=== PATIENT | female | born 1980 | race African-American/Black ===

== ENCOUNTER 2016-06-08 08:31 | Observation (INO) | payer OTHER ==
[~2016-06-08] VITALS: Ht 160 cm; Wt 101.0 kg
[~2016-06-08 08:31] MED LIST: ALBU8I INH; IBUP-232 PO; NORV10TA PO; PROM25SU8 PO
[2016-06-08 08:32] VITALS: BP 145/86; PULSE 102; RESP 20; TEMP 98.2; O2SAT 97
[2016-06-08] MEDS ORDERED: VENTAER INH (09:04)
[2016-06-08] MEDS ORDERED: AMLO10 PO (09:04)
[2016-06-08] MEDS ORDERED: SODIUM CHLORIDE 0.9% FLUSH 5 ML FLUSH IVF PRN ×2 (09:15→12:00)
--- NOTE | 2016-06-08 09:16 | PD ---
HPI Chief Complaint: Chest Pain Time Seen by Provider: 09:05 Travel History International Travel<30 days: No Contact w/Intl Traveler<30days: No Traveled to known affect area: No History of Present Illness HPI 36-year-old female with history of hypertension, high cholesterol, asthma, presents to the ER today because she states that she has been having headaches for several days and has been having left jaw discomfort, left shoulder discomfort, and chest discomfort. She states it feels like a pressure in the chest is a 7 out of 10 on the left side. She has tried to use her asthma pumps but did not give any improvement. She states it feels different than her asthma. She denies any shortness of breath currently, nausea, or other symptoms. Modifying Factors: None Associated Signs & Symptoms: Left jaw discomfort, left shoulder discomfort, chest discomfort, headaches Risk Factors: None PFSH Past Medical History Asthma: Yes Blood Disorders: No Anxiety: Yes Depression: Yes Cancer: No Cardiovascular Problems: No High Cholesterol: Yes Chemotherapy: No Diabetes: No Diminished Hearing: No Endocrine: No Gastrointestinal Disorders: Yes (CHOLECYSTITIS) GERD: Yes Genitourinary: No Hepatitis: No Hiatal Hernia: No Hypertension: Yes Immune Disorder: No Implanted Vascular Access Dvce: No Kidney Stones: Yes Musculoskeletal: No Neurologic: No Psychiatric: No Reproductive: No Respiratory: Yes (ASTHMA) Immunizations Current: Yes Migraines: Yes Pneumonia: Yes Radiation Therapy: No Thyroid Disease: No ?: Not Menopausal: Yes : 3 Para: 2 : 1 Tubal Ligation: Yes Past Surgical History AICD: No Arteriovenous Shunt: No Section: Yes (X1) Genitourinary Surgery: Yes (LITHOTRIPSY: KIDNEY STONES) Gynecologic Surgery: Yes (C-SECT, TUBAL, HYSTERECTOMY) Hysterectomy: Yes Insulin Pump: No Joint Replacement: No Oral Surgery: Yes (TONSILS) Pacemaker: No Tonsillectomy: Yes Other Surgery: Yes Social History Alcohol Use: Yes (OCCASIONAL) Tobacco Use: No (QUIT EARLY ) Substance Use: No Allergies-Medications (Allergen,Severity, Reaction): Coded Allergies: Celebrex (Verified Allergy, Severe, SOB/EDEMA, 06/08/16) Iodine (Verified Allergy, Severe, SOB/EDEMA, 06/08/16) Morphine (Verified Allergy, Severe, itching and hives, 06/08/16) new onset for pt. received Morphine earlier without incident Rocephin (Verified Allergy, Severe, SOB/EDEMA, 06/08/16) Seafood (Verified Allergy, Severe, SOB/EDEMA, 06/08/16) Wellbutrin (Verified Allergy, Severe, SOB/EDEMA, 06/08/16) Contrast Media (Verified Allergy, Unknown, 06/08/16) pt allergic to iodine Uncoded Allergies: FLU SHOT (Allergy, Mild, Anaphylaxis, 03/26/15) Reported Meds & Prescriptions Reported Meds & Active Scripts Active Reported Ventolin Hfa 18 GM Inh (Albuterol Sulfate) 90 Mcg/Act Aer 2 Puff INH Q4H PRN Norvasc (Amlodipine Besylate) 10 Mg Tab 10 Mg PO DAILY Review of Systems Except as stated in HPI: all other systems reviewed are Neg Physical Exam Narrative GENERAL: Well-nourished, well-developed young -[place] female patient in no acute distress. SKIN: Warm and dry. HEAD: Normocephalic. EYES: No scleral icterus. No injection or drainage. NECK: Supple, trachea midline. CARDIOVASCULAR: Regular rate and rhythm without murmurs, gallops, or rubs. Pulses are present and equal bilaterally. RESPIRATORY: Breath sounds equal bilaterally. No accessory muscle use. GASTROINTESTINAL: Abdomen soft, non-tender, nondistended. MUSCULOSKELETAL: No cyanosis, or edema. BACK: Nontender without obvious deformity. No CVA tenderness. Data Data Last Documented VS Vital Signs Date Time Temp Pulse Resp B/P Pulse Ox O2 Delivery O2 Flow Rate FiO2 06/08/16 10:32 95 Nasal Cannula 2 06/08/16 10:32 16 06/08/16 09:30 80 140/92 06/08/16 08:32 98.2 Orders Electrocardiogram (06/08/16 08:35) Basic Metabolic Panel (Bmp) (06/08/16 09:05) Ckmb (Isoenzyme) Profile (06/08/16 09:05) Complete Blood Count With Diff (06/08/16 09:05) Magnesium (Mg) (06/08/16 09:05) Prothrombin Time / Inr (Pt) (06/08/16 09:05) Act Partial Throm Time (Ptt) (06/08/16 09:05) Troponin I (06/08/16 09:05) Chest, Single Ap (06/08/16 09:05) Ecg Monitoring (06/08/16 09:05) Bilateral Bp Monitoring (06/08/16 09:05) Iv Access Insert/Monitor (06/08/16 09:05) Oximetry (06/08/16 09:05) Oxygen Administration (06/08/16 09:05) Sodium Chloride 0.9% Flush (Ns Flush) (06/08/16 09:15) Ed Urine Pregnancytest Poc (06/08/16 09:05) Potassium Chloride Eff (K-Lyte Cl Eff) (06/08/16 10:15) Labs Laboratory Tests Test 06/08/16 09:32 White Blood Count 7.3 TH/MM3 Red Blood Count 5.17 MIL/MM3 Hemoglobin 14.0 GM/DL Hematocrit 41.3 % Mean Corpuscular Volume 79.9 FL Mean Corpuscular Hemoglobin 27.0 PG Mean Corpuscular Hemoglobin 33.8 % Concent Red Cell Distribution Width 14.4 % Platelet Count 377 TH/MM3 Mean Platelet Volume 8.0 FL Neutrophils (%) (Auto) 48.3 % Lymphocytes (%) (Auto) 42.5 % Monocytes (%) (Auto) 6.1 % Eosinophils (%) (Auto) 2.4 % Basophils (%) (Auto) 0.7 % Neutrophils # (Auto) 3.5 TH/MM3 Lymphocytes # (Auto) 3.1 TH/MM3 Monocytes # (Auto) 0.4 TH/MM3 Eosinophils # (Auto) 0.2 TH/MM3 Basophils # (Auto) 0.1 TH/MM3 CBC Comment DIFF FINAL Differential Comment Sodium Level 138 MEQ/L Potassium Level 3.2 MEQ/L Chloride Level 103 MEQ/L Carbon Dioxide Level 24.6 MEQ/L Anion Gap 10 MEQ/L Blood Urea Nitrogen 8 MG/DL Creatinine 0.78 MG/DL Estimat Glomerular Filtration 101 ML/MIN Rate Random Glucose 95 MG/DL Calcium Level 8.5 MG/DL Magnesium Level 2.1 MG/DL Total Creatine Kinase 94 U/L Troponin I LESS THAN 0.02 NG/ML MDM Medical Decision Making Medical Screen Exam Complete: Yes Emergency Medical Condition: Yes Medical Record Reviewed: Yes Interpretation(s) EKG shows normal sinus rhythm at a rate of 86 bpm with no signs of acute ST-T changes. Laboratory Tests Test 06/08/16 09:32 Mean Corpuscular Volume 79.9 FL (80.0-100.0) Potassium Level 3.2 MEQ/L (3.5-5.1) Troponin I LESS THAN 0.02 NG/ML (0.02-0.05) Last 24 hours Impressions Chest X-Ray 06/08/16 0905 Signed Impressions: Service Date/Time: June 09:04 - CONCLUSION: No acute disease. Dharmesh Brian MD Differential Diagnosis Left jaw, left chest, left shoulder discomfortmusculoskeletal versus ACS versus cervical radiculopathy versus asthma exacerbation Narrative Course EKG did not showsign of acute changes. Cardiac enzymes are negative. Chest x- rays negative. At this point, my plan would be to admit the patient to chest pain center for further evaluation. Diagnosis Primary Impression: CHEST PAIN, UNSPECIFIED Admitting Information Admitting Physician Requests: Admit Kerry Donaldson MD Jun 08, 2016 09:16
--- NOTE | 2016-06-08 09:19 | RADRPT ---
EXAM DATE/TIME: 06/08/2016 09:04 [facility] COMPARISON: CHEST SINGLE AP, June 09, 2013, 15:01. INDICATIONS : Chest pain MEDICAL HISTORY : None. SURGICAL HISTORY : None. ENCOUNTER: Initial ACUITY: 2 weeks PAIN SCORE: 4/10 LOCATION: Bilateral chest FINDINGS: A single view of the chest demonstrates the lungs to be symmetrically aerated without evidence of mas s, infiltrate or effusion. The cardiomediastinal contours are unremarkable. Osseous structures are intact. CONCLUSION: No acute disease. Dharmesh Brian MD on June 08, 2016 at 9:17 Board Certified Radiologist. This report was verified electronically.
[2016-06-08 09:30] VITALS: BP 140/92; PULSE 80; RESP 16; O2SAT 95
--- NOTE | 2016-06-08 09:41 | EKG ---
Date Performed: 06/08/2016 Time Performed: 08:47:40 PTAGE: 36 years EKG: Sinus rhythm NONSPECIFIC T-WAVE ABNORMALITY BORDERLINE ECG NO SIGNIFICANT CHANGE FROM PRIOR ELECTROCARDIOGRAM. PREVIOUS TRACING : 06/09/2013 19.56 DOCTOR: Alfonso Schrader Interpretating Date/Time 06/08/2016 09:40:55
[2016-06-08 09:50] LABS: AUTOMATED NEUTROPHIL # 3.5 TH/MM3 (1.8-7.7); BASOPHIL # 0.1 TH/MM3 (0-0.2); BASOPHIL % 0.7 % (0.0-2.0); EOSINOPHIL # 0.2 TH/MM3 (0-0.4); EOSINOPHIL % 2.4 % (0.0-4.0); HEMATOCRIT 41.3 % (35.0-46.0); HEMO FLAGS DIFF FINAL; LYMPH % 42.5 % (9.0-44.0); LYMPHOCYTE # 3.1 TH/MM3 (1.0-4.8); MEAN CELL VOLUME 79.9 FL (80.0-100.0); MEAN CORPUSCULAR HGB CONC 33.8 % (32.0-36.0); MONO % 6.1 % (0.0-8.0); NEUT % 48.3 % (16.0-70.0); PLATELET COUNT 377 TH/MM3 (150-450); RED BLOOD COUNT 5.17 MIL/MM3 (4.00-5.30); RED CELL DISTRIBUTION WIDTH 14.4 % (11.6-17.2); WHITE BLOOD COUNT 7.3 TH/MM3 (4.0-11.0)
[2016-06-08 09:53] LABS: ANION GAP 10 MEQ/L (5-15); BICARBONATE 24.6 MEQ/L (21.0-32.0); BLOOD UREA NITROGEN 8 MG/DL (7-18); CHLORIDE 103 MEQ/L (98-107); GLOMERULAR FILTRATION RATE 101 ML/MIN (>89); MAGNESIUM 2.1 MG/DL (1.5-2.5); POTASSIUM 3.2 MEQ/L (3.5-5.1); SODIUM (NA) 138 MEQ/L (136-145)
[2016-06-08 10:04] LABS: CREATINE KINASE 94 U/L (26-192)
[2016-06-08] MEDS ORDERED: POTASSIUM CHLORIDE 25 MEQ EFFERVESCENT TAB PO ONE (10:15)
[2016-06-08 10:32] VITALS: RESP 16; O2SAT 95
[2016-06-08] MEDS ORDERED: ACETAMINOPHEN 500 MG CPLT PO PRN (12:00)
[2016-06-08] MEDS ORDERED: ONDANSETRON HCL 4 MG/2 ML VIAL IV PRN (12:00)
[2016-06-08] MEDS ORDERED: IBUPROFEN 600 MG TAB PO ONE ×2 (12:15→12:30)
[2016-06-08] MEDS ORDERED: RESP: ALBUTEROL 2.5 MG/IPRATROPIUM 0.5 MG NEB (PRN) INH (12:45)
[2016-06-08 13:00] VITALS: BP 143/95; PULSE 80; RESP 16; O2SAT 97
[2016-06-08 13:52] VITALS: O2SAT 100
[2016-06-08 13:55] LABS: CREATINE KINASE 78 U/L (26-192)
[2016-06-08 14:09] VITALS: BP 138/91; PULSE 79; RESP 18; TEMP 98.8; O2SAT 98
--- NOTE | 2016-06-08 17:42 | RADRPT ---
EXAM DATE/TIME: 06/08/2016 15:07 [facility] COMPARISON: No previous studies available for comparison. INDICATIONS : Left sided chest discomfort for 1 day. Angina DOSE: 26.3 mCi Tc99m Myoview at stress 8.1 mCi Tc99m Myoview at rest REST HEART RATE: 96 BPM TARGET HEART RATE: 156 BPM MAX HEART RATE: 163 BPM REST BLOOD PRESSURE: 130/82 mmHg MAX BLOOD PRESSURE: 146/92 mmHg EJECTION FRACTION: > 70% MEDICAL HISTORY : Hypertension. Hypercholesterolemia. SURGICAL HISTORY : Cholecystectomy. Tubal ligation. Hysterectomy. section. ENCOUNTER: Initial ACUITY: 1 day PAIN SCALE: 7/10 LOCATION: Left chest TECHNIQUE: The patient underwent upright treadmill exercise in the chest pain center. Continuous ECG tracing wa s monitored during stress. Gated SPECT imaging was performed after stress, and conventional SPECT im aging was performed at rest. The examination was performed on a SPECT/CT scanner, both attenuation-c orrected and non-corrected datasets were reviewed. FINDINGS: DISTRIBUTION: The maximum perfused segment at stress is in the lateral wall. PERFUSION STUDY: The pattern of perfusion at stress is within normal limits. GATED STUDY: There is intact wall motion and thickening without hypokinetic or dyskinetic segments. CONCLUSION: 1. No significant reversibility to suggest ischemia. 2. Normal wall motion with ejection fraction greater than 70%. RISK CATEGORY: Low (<1% Annual Mortality Rate) Sriram Shore MD on June 08, 2016 at 17:37 Board Certified Radiologist. This report was verified electronically.
[2016-06-08] MEDS ORDERED: NAPR500 PO (17:43)
--- NOTE | 2016-06-08 17:44 | HHI.DCPOC ---
Discharge Care Plan Diagnosis: (1) Chest pain, atypical (2) Hypertension (3) Hyperlipidemia (4) Hypokalemia (5) Obesity Goals to Promote Your Health * To prevent worsening of your condition and complications * To maintain your health at the optimal level Directions to Meet Your Goals Take your medications as prescribed Follow your dietary instruction Follow activity as directed Keep your appointments as scheduled Take your immunizations and boosters as scheduled If your symptoms worsen call your PCP, if no PCP go to Urgent Care Center or Emergency Room Smoking is Dangerous to Your Health. Avoid second hand smoke Call the 24-hour hour crisis hotline for domestic abuse at [facility]ers Jun 08, 2016 17:44
[2016-06-08] MEDS ORDERED: SODIUM CHLORIDE 0.9% FLUSH 5 ML FLUSH IVF SCH (21:00)
--- NOTE | 2016-06-09 08:14 | MH ---
cc: KERWIN HANEY MD DATE OF ADMISSION: 06/08/2016 DATE OF 1980 CHIEF COMPLAINT Chest pain HISTORY OF PRESENT ILLNESS This is a 36-year-old female who presents to the ED via private vehicle saying that a coworker brought her to the hospital. She states for the last two weeks she has been having a right-sided headache that radiates around the left side of her neck. It is sporadic. The left side of neck is tender and it hurts also to turn the neck. She has a history of migraines, but feels that it is a little bit different. She is also complaining of having intermittent central chest discomfort for the past month. She has done nothing to bring it on. She says she really does not do anything exertional. It lasts anywhere from 20-30 minutes at the most. She has felt a little short of breath at times with it. No nausea or diaphoresis. She states it hurts more to press on it. She also is complaining of a left shoulder pain that hurts and seems to be tender as well. She called her primary care physician Dr. Montemayor yesterday. He revised her to go to the ER, but she felt she could work through it still. However a coworker did advise her that she probably should go get seen. The patient also thought it may have been related to her asthma, however she has not been wheezing or coughing. She still tried a couple puffs of her inhaler last night which did change her symptoms. Her chest discomfort has been there since 4 o'clock this morning and is present at this time. This is the unusual aspect which did concern her. PAST MEDICAL HISTORY 1. Hypertension 2. Asthma 3. Hyperlipidemia 4. She states that they tried stent therapy, but she was unable to tolerate it. 5. She also migraines. 6. Denies diabetes and CAD. FAMILY HISTORY Denies a family history of CAD. SOCIAL HISTORY She is a lifetime nonsmoker. She denies alcohol or illicit drugs. PAST SURGICAL HISTORY Hysterectomy ALLERGIES CELEBREX, CONTRAST MEDIA, FLU VACCINE, IODINE, MORPHINE, ROCEPHIN, AND WELLBUTRIN. MEDICATIONS Current medications include: 1. Inhalers 2. Amlodipine PAST CARDIAC TESTING The patient had a nuclear ETT in 2013 that was nonischemic with an EF of 56%. REVIEW OF SYSTEMS GENERAL: Denies fevers or chills. Denies recent illnesses. HEENT: Complains about right-sided headache that radiates around to the left side of her neck. The neck discomfort also is worsened when she pushed on it or turns her neck. The left jaw hurts when she has this. Really cannot say how long it hurts or what brings it on. Denies earache or sore throat. She has not really noticed if it hurts to open or close her mouth when it happens, but she does not have the jaw and neck pain at this time and it does not hurt when she opens or closes it at this time. CARDIOVASCULAR: Describes the discomfort as mentioned above. Denies diaphoresis. Denies sensation of hearting rapidly or irregularly. No syncope. RESPIRATORY: At times, shortness of breath. No inspirational chest discomfort. Denies coughing, wheezing or hemoptysis. GI: Denies nausea, vomiting, diarrhea, abdominal pain or blood in the stool. MUSCULOSKELETAL: Has had some left-sided neck discomfort. Also has some left shoulder discomfort. No injury or trauma. Denies calf pain or swelling. NEUROVASCULAR: She does complain of a headache. Denies dizziness. She complains of some tingling in both arms and also sometimes in both of her legs. This is not new. She has spoken with her primary care physician regarding this in the past. Denies weakness in her extremities. ENDOCRINE: Denies polyuria or polydipsia. HEMATOLOGIC: Denies easy bruising. SKIN: Denies rash or itching. PHYSICAL EXAMINATION VITAL SIGNS; In the emergency department initially included a blood pressure of 145/86, heart rate was 102, respiration 20, pulse oximetry 96 on room air and she is afebrile. Most vital signs include a blood pressure of 149/80, respiration 16, pulse oximetry 95% on room air. GENERAL: The patient seen in the examination room in no apparent distress. The patient is very pleasant. She speaks in clear and complete sentences. She is obese at 101 kg. HEENT: Head is atraumatic and normocephalic. NECK: Supple without lymphadenopathy and trachea is midline. No JVD or carotid bruits. The left side of the neck was tender when auscultating the carotids and then pressing on them manually also intensifies the discomfort. Also discomfort was worsened when she turned her neck. CARDIOVASCULAR: Regular rate and rhythm without murmur, gallop or rub. RESPIRATORY: Lungs are clear to auscultation bilaterally. No wheezing, rales or rhonchi. No use of accessory muscles. The discomfort in her chest wall was worsened even with auscultating with my stethoscope. Also it was even more so worsened when pressing or putting a little bit more pressure. No use of accessory muscles. GI: Abdomen is nontender, nondistended. Bowel sounds are normal. No guarding or rebound. No obvious pulsatile mass or bruit. No CVA tenderness. Strong femoral pulses bilaterally. MUSCULOSKELETAL: Patient is moving upper and lower extremities freely. No joint tenderness or edema. No calf tenderness or edema, Homans' sign. Strong pulses in the upper and lower extremities. There is discomfort with turning of her neck more so on the left side and also tenderness on palpating the left side of her neck. SKIN: No rashes, turgor is normal. LABORATORY DATA CBC is unremarkable. Basic metabolic panel has a potassium decreased at 3.2, otherwise unremarkable. The first set of cardiac enzymes are normal. Single view chest x-ray read by the radiologist as no acute disease. EKG's Initial EKG is sinus rhythm with nonspecific T-wave changes laterally. This is comparable to prior EKG's. ASSESSMENT 1. Chest pain: Her discomfort is very atypical. It is more muscular. The neck discomfort sounds like it could be a pinched nerve or such. She was seen by Dr. Haney. We have discomfort her chest discomfort at length with the patient. Really not suspicious for a cardiac etiology. We also discussed with the patient that if we can get a stress test even nuclear at 36 years of age poses a cancer risk with radiation exposure. The patient still would like to have the stress test while she is here. Subsequently, the patient will have a nuclear ETT and her second troponins were even normal. 2. Hypertension: Continue her current medications. 3. Asthma: DuoNebs as needed. 4. Hyperlipidemia: The patient will need to discuss treatment options with her primary care physician. 5. Obesity: The patient has been counseled on the importance of diet, exercise and weight loss. 6. Hypokalemia: The patient was given potassium supplementation. 7. The patient is stable at time. She is agreeable with this plan. Dictated by: JENNIE Khoury Heri Baldwin/DJL /12:36 PM /6:52 AM
--- NOTE | 2016-06-09 14:38 | EKG ---
Date Performed: 06/08/2016 Time Performed: 12:45:33 PTAGE: 36 years EKG: Sinus rhythm NONSPECIFIC ST & T-WAVE ABNORMALITY BORDERLINE ECG Since PREVIOUS TRACING , no significant change noted PREVIOUS TRACIN06/08/2016 08.47 DOCTOR: Kerri Marin Interpretating Date/Time 06/09/2016 14:34:40
--- NOTE | 2016-06-09 14:41 | TR ---
Date Performed: 06/08/2016 Time Performed: 15:59:52 DOCTOR: Kerri Marin DRUG LIST: CLINICAL HISTORY: CHEST PAIN REASON FOR TEST: Chest pain REASON FOR ENDING: OBSERVATION: CONCLUSION: NUCLEAR ETT, ARNEL PROTOCOL. NO CP. MILD SOBMaximum AC=793 % Max HR Achieved=89.0% M aximum ZI=454/92 Total Exercise Time=7:01 COMMENTS:
== END 2016-06-08 21:51 | disposition home or self-care (01) ==
LOC: NEPE 08:31 → NEDA 11:13 → NEPFCDU 14:08
PROVIDERS: ADMIT Internal Medicine Interventional Cardiology; ATTEND Internal Medicine Interventional Cardiology
DX: R07.89 Other chest pain (principal); I10 Essential (primary) hypertension; J45.909 Unspecified asthma, uncomplicated; R94.31 Abnormal electrocardiogram [ECG] [EKG]; E78.5 Hyperlipidemia, unspecified; E87.6 Hypokalemia; K21.9 Gastro-esophageal reflux disease without esophagitis; E78.00 Pure hypercholesterolemia, unspecified; E66.9 Obesity, unspecified; Z68.39 Body mass index [BMI] 39.0-39.9, adult; Z87.442 Personal history of urinary calculi
CPT/HCPCS: 71010; 78452; 80048; 82550; 83735; 84484; 85025; 93005; 93017; 99285; A9502; G0378

== ENCOUNTER → 2016-06-15 | Outpatient (CLI) | payer OTHER ==
[~2016-06-15] MED LIST changes: -ALBU8I INH; +AMLO10 PO; +HYDR-3533 PO; -IBUP-232 PO; +NAPR500 PO; +NORC5TAB PO; -NORV10TA PO; -PROM25SU8 PO; +SENN1TAB PO; +VENTAER INH; +ZOFR4TAB3 SL
[2016-06-15 07:22] LABS: BASOPHIL % 0.6 % (0.0-2.0); EOSINOPHIL # 0.2 TH/MM3 (0-0.4); EOSINOPHIL % 2.8 % (0.0-4.0); HEMATOCRIT 41.6 % (35.0-46.0); HEMO FLAGS DIFF FINAL; LYMPH % 43.3 % (9.0-44.0); LYMPHOCYTE # 2.8 TH/MM3 (1.0-4.8); MEAN CELL VOLUME 80.8 FL (80.0-100.0); MEAN CORPUSCULAR HEMOGLOBIN 26.5 PG (27.0-34.0); MEAN CORPUSCULAR HGB CONC 32.8 % (32.0-36.0); MONO % 6.5 % (0.0-8.0); NEUT % 46.8 % (16.0-70.0); PLATELET COUNT 402 TH/MM3 (150-450); RED BLOOD COUNT 5.14 MIL/MM3 (4.00-5.30); RED CELL DISTRIBUTION WIDTH 13.8 % (11.6-17.2); WHITE BLOOD COUNT 6.5 TH/MM3 (4.0-11.0)
[2016-06-15 07:54] LABS: BICARBONATE 30.2 MEQ/L (21.0-32.0); POTASSIUM 3.8 MEQ/L (3.5-5.1)
[2016-06-15 08:04] LABS: FREE T4 1.04 NG/DL (0.76-1.46)
[2016-06-15 08:32] LABS: WESTERGREN SEDIMENTATION RATE 12 mm/hr (0-20)
== END ==
LOC: CLAB 06:59
PROVIDERS: ATTEND Family Medicine
DX: G44.229 Chronic tension-type headache, not intractable (principal); H53.9 Unspecified visual disturbance; H93.13 Tinnitus, bilateral; R20.0 Anesthesia of skin; R41.840 Attention and concentration deficit; R07.89 Other chest pain; E87.6 Hypokalemia; Z82.49 Family history of ischemic heart disease and other diseases of the circulatory system; Z87.820 Personal history of traumatic brain injury
CPT/HCPCS: 36415; 80048; 84439; 84443; 85025; 85060; 85652; 86140

== ENCOUNTER 2016-10-07 23:00 | Emergency (ER) | payer OTHER ==
[~2016-10-07] VITALS: Ht 154.9 cm; Wt 100.0 kg
[~2016-10-07 23:00] MED LIST changes: -HYDR-3533 PO; -NORC5TAB PO; -SENN1TAB PO; -ZOFR4TAB3 SL
[2016-10-07 23:02] VITALS: BP 169/95; PULSE 83; RESP 18; TEMP 98.6; O2SAT 100
[2016-10-08] MEDS ORDERED: KETOROLAC TROMETHAMINE 30 MG/ML (IVP) VIAL IVP ONE (00:30)
[2016-10-08] MEDS ORDERED: ONDANSETRON HCL 4 MG/2 ML VIAL IV PUSH ONE (00:30)
[2016-10-08] MEDS ORDERED: SODIUM CHLOR 0.9% 1000 ML INJ 1,000 ML IV ONE (00:45)
[2016-10-08 00:46] LABS: AUTOMATED NEUTROPHIL # 3.8 TH/MM3 (1.8-7.7); BASOPHIL # 0.1 TH/MM3 (0-0.2); BASOPHIL % 0.7 % (0.0-2.0); EOSINOPHIL # 0.2 TH/MM3 (0-0.4); HEMATOCRIT 44.7 % (35.0-46.0); HEMO FLAGS DIFF FINAL; LYMPH % 48.6 % (9.0-44.0); LYMPHOCYTE # 4.2 TH/MM3 (1.0-4.8); MEAN CORPUSCULAR HEMOGLOBIN 26.8 PG (27.0-34.0); MONO % 5.1 % (0.0-8.0); NEUT % 43.6 % (16.0-70.0); PLATELET COUNT 367 TH/MM3 (150-450); RED BLOOD COUNT 5.52 MIL/MM3 (4.00-5.30); RED CELL DISTRIBUTION WIDTH 14.2 % (11.6-17.2); WHITE BLOOD COUNT 8.6 TH/MM3 (4.0-11.0)
--- NOTE | 2016-10-08 02:13 | RADRPT ---
EXAM DATE/TIME: 10/08/2016 01:00 [facility] COMPARISON: No previous studies available for comparison. INDICATIONS : Lower abdominal pain. MEDICAL HISTORY : None. SURGICAL HISTORY : None. ENCOUNTER: Initial ACUITY: 2 days PAIN SCORE: 6/10 LOCATION: Bilateral lower quadrant FINDINGS: Supine view of the abdomen was performed. The abdominal bowel gas pattern is normal. No abnormal ma sses, calcifications, or organomegaly is seen. The osseous structures are unremarkable. CONCLUSION: No acute disease. Dharmesh Brian MD on October 08, 2016 at 1:34 Board Certified Radiologist. This report was verified electronically.
[2016-10-08 02:28] LABS: ALT (GPT) 31 U/L (10-53); ANION GAP 8 MEQ/L (5-15); AST (GOT) 28 U/L (15-37); BICARBONATE 25.8 MEQ/L (21.0-32.0); BLOOD UREA NITROGEN 9 MG/DL (7-18); CHLORIDE 104 MEQ/L (98-107); GLOMERULAR FILTRATION RATE 101 ML/MIN (>89); POTASSIUM 4.4 MEQ/L (3.5-5.1); SODIUM (NA) 138 MEQ/L (136-145)
--- NOTE | 2016-10-08 02:30 | RADRPT ---
EXAM DATE/TIME: 10/08/2016 01:20 [facility] COMPARISON: No previous studies available for comparison. [facility], CT Abdomen, October 06, 2016CT Abdomen, [facility], 06/10/2015. Ultrasound abdomen, POI, . CT Abdomen, [facility]LI 09/15/11. [facility], MRI Abdomen, 03/16/2011. INDICATIONS : Bilateral flank pain. MEDICAL HISTORY : Hypertension. Kidney stones. SURGICAL HISTORY : Hysterectomy. section. Tonsillectomy. Left renal surgery for kidney stones. ENCOUNTER: Initial ACUITY: 2 weeks PAIN SCORE: 8/10 LOCATION: Bilateral flank MEASUREMENTS: RIGHT KIDNEY: 11.5 x 5.9 x 4.1 cm LEFT KIDNEY: 12.4 x 5.5 x 4.8 cm FINDINGS: RIGHT KIDNEY: Renal cortex is normal in thickness and echotexture. No hydronephrosis or mass. Echogenic foci in t he right kidney measures 10.7 x 0.8 cm. One measures 2.5 x 0.7 cm and the third measures 0.7 x 1.0 cm . LEFT KIDNEY: Renal cortex is normal in thickness and echotexture. No hydronephrosis or mass. One echogenic focus in the left mid kidney measures are 0.6 x 0.5 cm. BLADDER: Within normal limits given the degree of distension. CONCLUSION: 1. Bilateral echogenic foci more numerous in the right kidney likely bilateral nonobstructing renal c alculi. 2. No hydronephrosis. 3. Urinary bladder unremarkable. Dharmesh Brian MD on October 08, 2016 at 2:26 Board Certified Radiologist. This report was verified electronically.
[2016-10-08 02:36] LABS: BACTERIA, URINE MANY /hpf; BLOOD, URINE LARGE (NEG); COMMENT (UR) CULTURE INDICATED; CULTURE IF INDICATED CULTURE INDICATED; GLUCOSE,URINE NEG (NEG); KETONE, URINE NEG (NEG); MUCUS URINE FEW /lpf (OCC); NITRITE,URINE NEG (NEG); URINE COLOR YELLOW (YELLW/STRAW)
[2016-10-08 02:51] LABS: ALKALINE PHOSPHATASE 76 U/L (45-117)
[2016-10-08 02:52] LABS: TOTAL BILIRUBIN ADULT 0.6 MG/DL (0.2-1.0)
[2016-10-08] MEDS ORDERED: NAPR500 PO (02:57)
[2016-10-08] MEDS ORDERED: ZOFR4TAB3 SL (02:57)
[2016-10-08] MEDS ORDERED: HYDR-3533 PO (02:57)
--- NOTE | 2016-10-08 02:57 | PD ---
HPI Chief Complaint: Complaint Time Seen by Provider: 00:08 Travel History International Travel<30 days: No Contact w/Intl Traveler<30days: No Traveled to known affect area: No History of Present Illness HPI So 36-year-old woman who presents to the emergency room complaining of back pain is been ongoing for the past 2 weeks. She describes mid back pain up in the middle of her back is been progressively worse. She also has had hematuria. She saw Dr. chandler to couple days ago. He did a CT scan that showed multiple renal stones, and 8 mm stone in her right renal pelvis. She reports that the doctor called her yesterday and said that she had a positive urinalysis and she's been on Cipro for 2 days. She states despite that she's having worsening pain and cramping. No other complaints. History Past Medical History Narrative Medical Asthma Kidney stones Hypertension Hyperlipidemia Tetanus Vaccination: < 5 Years Influenza Vaccination: No Menopausal: Yes : 3 Para: 2 Social History Alcohol Use: Yes (OCCASIONAL) Tobacco Use: No (QUIT EARLY ) Allergies-Medications (Allergen,Severity, Reaction): Coded Allergies: Celebrex (Verified Allergy, Severe, SOB/EDEMA, 10/07/16) Iodine (Verified Allergy, Severe, SOB/EDEMA, 10/07/16) Morphine (Verified Allergy, Severe, itching and hives, 10/07/16) new onset for pt. received Morphine earlier without incident Rocephin (Verified Allergy, Severe, SOB/EDEMA, 10/07/16) Seafood (Verified Allergy, Severe, SOB/EDEMA, 10/07/16) Wellbutrin (Verified Allergy, Severe, SOB/EDEMA, 10/07/16) Contrast Media (Verified Allergy, Unknown, 10/07/16) pt allergic to iodine Uncoded Allergies: FLU SHOT (Allergy, Mild, Anaphylaxis, 03/26/15) Reported Meds & Prescriptions Reported Meds & Active Scripts Active Naprosyn (Naproxen) 500 Mg Tab 500 Mg PO Q8HR Reported Ventolin Hfa 18 GM Inh (Albuterol Sulfate) 90 Mcg/Act Aer 2 Puff INH Q4H PRN Norvasc (Amlodipine Besylate) 10 Mg Tab 10 Mg PO DAILY Review of Systems Except as stated in HPI: all other systems reviewed are Neg Physical Exam Narrative GENERAL: Well-appearing 36-year-old woman, no acute distress. SKIN: Focused skin assessment warm/dry. HEAD: Atraumatic. Normocephalic. CARDIOVASCULAR: Regular rate and rhythm. No murmur appreciated. RESPIRATORY: No accessory muscle use. Clear to auscultation. Breath sounds equal bilaterally. GASTROINTESTINAL: Abdomen soft, non-tender, nondistended. Hepatic and splenic margins not palpable. MUSCULOSKELETAL: No obvious deformities. No edema. NEUROLOGICAL: Awake and alert. No obvious cranial nerve deficits. Motor grossly within normal limits. Normal speech. PSYCHIATRIC: Appropriate mood and affect; insight and judgment normal. Data Data Last Documented VS Vital Signs Date Time Temp Pulse Resp B/P Pulse Ox O2 Delivery O2 Flow Rate FiO2 10/07/16 23:02 98.6 83 18 169/95 100 Room Air Orders Complete Blood Count With Diff (10/08/16 00:08) Comprehensive Metabolic Panel (10/08/16 00:08) Ed Urine Pregnancytest Poc (10/08/16 00:08) Urinalysis - C+S If Indicated (10/08/16 00:08) Lipase (10/08/16 00:08) Iv Access Insert/Monitor (10/08/16 00:08) Ed Poc Ultrasound (10/08/16 ) Abdomen, Kub Only (10/08/16 ) Ketorolac Inj (Toradol Inj) (10/08/16 00:30) Ondansetron Inj (Zofran Inj) (10/08/16 00:30) Us Kidney/Renal/Bladder (10/08/16 ) Sodium Chlor 0.9% 1000 Ml Inj (Ns 1000 M (10/08/16 00:45) Urine Culture (10/08/16 00:58) Labs Laboratory Tests Test 10/08/16 10/08/16 00:30 00:58 White Blood Count 8.6 TH/MM3 Red Blood Count 5.52 MIL/MM3 Hemoglobin 14.8 GM/DL Hematocrit 44.7 % Mean Corpuscular Volume 81.0 FL Mean Corpuscular Hemoglobin 26.8 PG Mean Corpuscular Hemoglobin 33.0 % Concent Red Cell Distribution Width 14.2 % Platelet Count 367 TH/MM3 Mean Platelet Volume 8.1 FL Neutrophils (%) (Auto) 43.6 % Lymphocytes (%) (Auto) 48.6 % Monocytes (%) (Auto) 5.1 % Eosinophils (%) (Auto) 2.0 % Basophils (%) (Auto) 0.7 % Neutrophils # (Auto) 3.8 TH/MM3 Lymphocytes # (Auto) 4.2 TH/MM3 Monocytes # (Auto) 0.4 TH/MM3 Eosinophils # (Auto) 0.2 TH/MM3 Basophils # (Auto) 0.1 TH/MM3 CBC Comment DIFF FINAL Differential Comment Sodium Level 138 MEQ/L Potassium Level 4.4 MEQ/L Chloride Level 104 MEQ/L Carbon Dioxide Level 25.8 MEQ/L Anion Gap 8 MEQ/L Blood Urea Nitrogen 9 MG/DL Creatinine 0.78 MG/DL Estimat Glomerular Filtration 101 ML/MIN Rate Random Glucose 85 MG/DL Calcium Level 9.3 MG/DL Total Bilirubin 0.6 MG/DL Aspartate Amino Transf 28 U/L (AST/SGOT) Alanine Aminotransferase 31 U/L (ALT/SGPT) Alkaline Phosphatase 76 U/L Total Protein 8.7 GM/DL Albumin 4.1 GM/DL Lipase 147 U/L Urine Color YELLOW Urine Turbidity CLOUDY Urine pH 7.0 Urine Specific [place] 1.017 Urine Protein TRACE mg/dL Urine Glucose (UA) NEG mg/dL Urine Ketones NEG mg/dL Urine Occult Blood LARGE Urine Nitrite NEG Urine Bilirubin NEG Urine Urobilinogen LESS THAN 2.0 MG/DL Urine Leukocyte Esterase MOD Urine RBC /hpf Urine WBC 41 /hpf Urine Amorphous Sediment RARE Urine Bacteria MANY /hpf Urine Mucus FEW /lpf Microscopic Urinalysis Comment CULTURE INDICATED MDM Medical Decision Making Medical Screen Exam Complete: Yes Emergency Medical Condition: Yes Interpretation(s) LABS: CBC unremarkable. CMP unremarkable. Lipase normal. UA with innumerable red blood cells. Renal ultrasound: Bilateral echogenic foci, more numerous in the right kidney, likely bilateral nonobstructing renal calculi. No hydronephrosis. Bladder unremarkable. KUB: Negative. Differential Diagnosis Renal lithiasis, back pain, ureterolithiasis, other Narrative Course Medical decision making This a 36 showed woman who presents to the emergency Department with back pain for the past 2 weeks. She's been followed with urology. She has multiple renal lithiasis. She has gross hematuria. I don't see any evidence of urinary tract infection. She is currently being treated with Cipro. We'll recommend continue pain control, outpatient follow-up with urology. Diagnosis Primary Impression: Back pain Additional Impression: Renal lithiasis Additional Instructions: Take Naprosyn as prescribed as needed for pain. Take Lortab in addition to Naprosyn as needed for severe pain. Use Zofran if needed for nausea or vomiting. Follow-up with your urologist as scheduled. Return to the emergency department for any new or worsening symptoms. Med/Other Pt SpecificInfo: Prescription(s) given Scripts Naproxen (Naprosyn)500 Mg Stq552 Mg PO BID PRN (PAIN SCALE 1 TO 10) #20 TAB Prov:Kamaljit Mackey MD 10/08/16 Ondansetron Odt (Zofran Odt)4 Mg Tab4 Mg SL Q8HR PRN (Nausea/Vomiting) #15 TAB May substitute non-ODT form. Prov:Kamaljit Mackey MD 10/08/16 Hydrocodone-Acetaminophen (Lortab)5-325 Mg Tab1-2 Tab PO Q6H PRN (PAIN) #12 TAB Prov:Kamaljit Mackey MD 10/08/16 Disposition: 01 DISCHARGE HOME Condition: Stable Kamaljit Mackey MD October 08, 2016 02:57
[2016-10-08] MEDS ORDERED: MORPHINE SULFATE 4 MG/ML INJ IV PUSH ONE (03:00)
== END 2016-10-08 04:10 | disposition home or self-care (01) ==
LOC: NEPC 23:00
DX: N20.0 Calculus of kidney (principal); N39.0 Urinary tract infection, site not specified; B96.89 Other specified bacterial agents as the cause of diseases classified elsewhere
CPT/HCPCS: 74000; 76775; 80053; 81001; 83690; 84703; 85025; 87077; 87086; 87186; 96374; 96375; 99284; J1885; J2270; J2405; J7030

== ENCOUNTER 2016-10-26 17:47 | Inpatient (IN) | payer OTHER ==
[~2016-10-26] VITALS: Ht 157.5 cm; Wt 102.2 kg
[~2016-10-26 17:47] MED LIST changes: +HYDR-3533 PO; +ZOFR4TAB3 SL
[2016-10-26 17:51] VITALS: BP 152/98; PULSE 88; RESP 16; TEMP 98.3; O2SAT 100
[2016-10-26] MEDS ORDERED: SODIUM CHLOR 0.9% 1000 ML INJ 1,000 ML IV SCH ×2 (18:18→20:30)
--- NOTE | 2016-10-26 18:26 | PD ---
HPI Chief Complaint: Pain: Acute or Chronic Time Seen by Provider: 18:18 Travel History International Travel<30 days: No Contact w/Intl Traveler<30days: No Traveled to known affect area: No History of Present Illness HPI 36-year-old female with history of kidney stones diagnosed 2 weeks ago due for lithotripsy with Dr. morrell, presents to the ER today for worsening of right flank pains for the last few days. She states is currently a 9 out of 10. She has been taking Naprosyn without significant improvement. She has been nauseous , vomiting, and feels like she can only urinate small amounts at a time. She states that the last time this happened, she had a UTI that was making symptoms worse. She denies any recent fevers or any other issues. Modifying Factors: None Associated Signs & Symptoms: Right flank pains, nausea and vomiting Risk Factors: Kidney stone, 8 mm stone on the right PFSH Past Medical History Asthma: Yes Blood Disorders: No Anxiety: Yes Depression: Yes Heart Rhythm Problems: No Cancer: No Cardiac Catheterization: No Cardiovascular Problems: No High Cholesterol: Yes Chemotherapy: No Diabetes: No Diminished Hearing: No Endocrine: No Gastrointestinal Disorders: Yes (CHOLECYSTITIS) GERD: Yes Genitourinary: No Hepatitis: No Hiatal Hernia: No Hypertension: Yes Immune Disorder: No Implanted Vascular Access Dvce: No Kidney Stones: Yes Musculoskeletal: No Neurologic: No Psychiatric: No Reproductive: No Respiratory: Yes (ASTHMA) Immunizations Current: Yes Migraines: Yes Pneumonia: Yes Radiation Therapy: No Thyroid Disease: No Influenza Vaccination: No ?: Not Menopausal: Yes : 3 Para: 2 : 1 Tubal Ligation: Yes Past Surgical History AICD: No Arteriovenous Shunt: No Section: Yes (X1) Coronary Artery Bypass Graft: No Genitourinary Surgery: Yes (LITHOTRIPSY: KIDNEY STONES) Gynecologic Surgery: Yes (C-SECT, TUBAL, HYSTERECTOMY) Hysterectomy: Yes Insulin Pump: No Joint Replacement: No Oral Surgery: Yes (TONSILS) Pacemaker: No Tonsillectomy: Yes Other Surgery: Yes Social History Alcohol Use: Yes (OCCASIONAL) Tobacco Use: No (QUIT EARLY 'S) Substance Use: No Allergies-Medications (Allergen,Severity, Reaction): Coded Allergies: Celebrex (Verified Allergy, Severe, SOB/EDEMA, 10/26/16) Iodine (Verified Allergy, Severe, SOB/EDEMA, 10/26/16) Morphine (Verified Allergy, Severe, itching and hives, 10/26/16) new onset for pt. received Morphine earlier without incident Rocephin (Verified Allergy, Severe, SOB/EDEMA, 10/26/16) Seafood (Verified Allergy, Severe, SOB/EDEMA, 10/26/16) Wellbutrin (Verified Allergy, Severe, SOB/EDEMA, 10/26/16) Contrast Media (Verified Allergy, Unknown, 10/26/16) pt allergic to iodine Uncoded Allergies: FLU SHOT (Allergy, Mild, Anaphylaxis, 03/26/15) Reported Meds & Prescriptions Reported Meds & Active Scripts Active Naprosyn (Naproxen) 500 Mg Tab 500 Mg PO Q8HR Reported Ventolin Hfa 18 GM Inh (Albuterol Sulfate) 90 Mcg/Act Aer 2 Puff INH Q4H PRN Norvasc (Amlodipine Besylate) 10 Mg Tab 10 Mg PO DAILY Review of Systems Except as stated in HPI: all other systems reviewed are Neg Physical Exam Narrative GENERAL: Well-developed young -[place]izen [place] female patient currently in moderate distress. Awake and oriented 3. SKIN: Focused skin assessment warm/dry. HEAD: Atraumatic. Normocephalic. EYES: Pupils equal and round. No scleral icterus. No injection or drainage. ENT: No nasal bleeding or discharge. Mucous membranes pink and moist. NECK: Trachea midline. No JVD. CARDIOVASCULAR: Regular rate and rhythm. No murmur appreciated. RESPIRATORY: No accessory muscle use. Clear to auscultation. Breath sounds equal bilaterally. GASTROINTESTINAL: Abdomen soft, non-tender, nondistended. Hepatic and splenic margins not palpable. BACK: Right CVA tenderness. No rash. No point tenderness on palpation of the spine. MUSCULOSKELETAL: No obvious deformities. No clubbing. No cyanosis. No edema. NEUROLOGICAL: Awake and alert. No obvious cranial nerve deficits. Motor grossly within normal limits. Normal speech. PSYCHIATRIC: Appropriate mood and affect; insight and judgment normal. Data Data Last Documented VS Vital Signs Date Time Temp Pulse Resp B/P Pulse Ox O2 Delivery O2 Flow Rate FiO2 10/26/16 18:40 100 10/26/16 17:51 98.3 88 16 152/98 Orders Complete Blood Count With Diff (10/26/16 18:18) Comprehensive Metabolic Panel (10/26/16 18:18) Lipase (10/26/16 18:18) Urinalysis - C+S If Indicated (10/26/16 18:18) Ct Abd/Pel W/O Iv Contrast (10/26/16 18:18) Iv Access Insert/Monitor (10/26/16 18:18) Ecg Monitoring (10/26/16 18:18) Oximetry (10/26/16 18:18) Ondansetron Inj (Zofran Inj) (10/26/16 18:30) Sodium Chlor 0.9% 1000 Ml Inj (Ns 1000 M (10/26/16 18:18) Sodium Chloride 0.9% Flush (Ns Flush) (10/26/16 18:30) Hydromorphone Pf Inj (Dilaudid Pf Inj) (10/26/16 18:30) Labs Laboratory Tests Test 10/26/16 18:32 Urine Color STRAW Urine Turbidity CLOUDY Urine pH 8.5 Urine Specific [place] 1.012 Urine Protein NEG mg/dL Urine Glucose (UA) NEG mg/dL Urine Ketones NEG mg/dL Urine Occult Blood TRACE Urine Nitrite NEG Urine Bilirubin NEG Urine Leukocyte Esterase NEG Urine RBC 4-9 /hpf Urine WBC 0-2 /hpf Urine Squamous Epithelial > 8 /hpf Cells Urine Amorphous Sediment MOD Urine Mucus FEW /lpf Microscopic Urinalysis Comment CULT NOT INDICATED MDM Medical Decision Making Medical Screen Exam Complete: Yes Emergency Medical Condition: Yes Medical Record Reviewed: Yes Differential Diagnosis Right flank pains, nausea and vomiting, decreased urinationdehydration versus acute renal failure versus metabolic issues versus renal colic versus pyelonephritis versus other acute intra-abdominal processes Narrative Course IV fluids, pain medications, Zofran, and lab work and CAT scans were ordered for the patient. Procedures Procedure Narrative Left EJ: Patient is placed in Trendelenburg position, left EJ area has been cleaned and prepped with ChloraPrep and 20-gauge IV needle was used to access EJ. Line was flushed without issues. Tape into place. Physician Communication Physician Communication Case is signed out at [address] Garrett pending workup. Disposition will depend on urologist. Diagnosis Primary Impression: Flank pain Kerry Donaldson MD October 26, 2016 18:26
[2016-10-26] MEDS ORDERED: ONDANSETRON HCL 4 MG/2 ML VIAL IVP ONE (18:30)
[2016-10-26] MEDS ORDERED: SODIUM CHLORIDE 0.9% FLUSH 10 ML FLUSH IV FLUSH PRN ×2 (18:30→21:45)
[2016-10-26] MEDS ORDERED: HYDROmorphone HCL PF 1 MG/ML VIAL IVS ONE (18:30)
[2016-10-26 18:40] VITALS: O2SAT 100
[2016-10-26 18:44] LABS: BLOOD, URINE TRACE (NEG); GLUCOSE,URINE NEG (NEG); KETONE, URINE NEG (NEG); NITRITE,URINE NEG (NEG); PH, URINE 8.5 (5.0-8.5)
[2016-10-26 18:50] LABS: URINE COLOR STRAW (YELLW/STRAW)
[2016-10-26 18:51] LABS: MUCUS URINE FEW /lpf (OCC); SQUAMOUS EPITHELIAL CELL URINE > 8 /hpf (0-5); WBC, URINE 0-2 /hpf (0-5)
[2016-10-26 18:52] LABS: COMMENT (UR) CULT NOT INDICATED; CULTURE IF INDICATED CULT NOT INDICATED
--- NOTE | 2016-10-26 19:15 | PD ---
Physical Exam Date Seen by Provider: October 26, 2016 Time Seen by Provider: 19:13 Narrative accepted in transfer of care from Dr Donaldson Data Data Last Documented VS Vital Signs Date Time Temp Pulse Resp B/P Pulse Ox O2 Delivery O2 Flow Rate FiO2 10/26/16 21:13 87 135/71 98 Room Air 10/26/16 17:51 98.3 16 Orders Complete Blood Count With Diff (10/26/16 18:18) Comprehensive Metabolic Panel (10/26/16 18:18) Lipase (10/26/16 18:18) Urinalysis - C+S If Indicated (10/26/16 18:18) Ct Abd/Pel W/O Iv Contrast (10/26/16 18:18) Iv Access Insert/Monitor (10/26/16 18:18) Ecg Monitoring (10/26/16 18:18) Oximetry (10/26/16 18:18) Ondansetron Inj (Zofran Inj) (10/26/16 18:30) Sodium Chlor 0.9% 1000 Ml Inj (Ns 1000 M (10/26/16 18:18) Sodium Chloride 0.9% Flush (Ns Flush) (10/26/16 18:30) Hydromorphone Pf Inj (Dilaudid Pf Inj) (10/26/16 18:30) Hydromorphone Pf Inj (Dilaudid Pf Inj) (10/26/16 20:30) Ondansetron Inj (Zofran Inj) (10/26/16 20:30) Sodium Chlor 0.9% 1000 Ml Inj (Ns 1000 M (10/26/16 20:30) Admit To Inpatient (10/26/16 ) Vital Signs (Adult) Q4H (10/26/16 21:37) Activity Oob Ad Maryana (10/26/16 21:37) Yarn Rewinder / Telemetry .CONTINUOUS (10/26/16 21:37) Diet Clear Liquid (10/27/16 Breakfast) Sodium Chlor 0.9% 1000 Ml Inj (Ns 1000 M (10/26/16 21:37) Sodium Chloride 0.9% Flush (Ns Flush) (10/26/16 21:45) Sodium Chloride 0.9% Flush (Ns Flush) (10/27/16 09:00) Comprehensive Metabolic Panel (10/27/16 06:00) Complete Blood Count With Diff (10/27/16 06:00) Naloxone Inj (Narcan Inj) (10/26/16 21:45) Inpatient Certification (10/26/16 ) Hydromorphone Pf Inj (Dilaudid Pf Inj) (10/26/16 21:45) Consult Gastroenterology (10/26/16 ) Admit Order (Ed Use Only) (10/26/16 ) ^ Saline Lock (10/26/16 21:39) Resp Oxygen Sharad C Titrat 1-4 L (10/26/16 ) Notify Dr: Other (10/26/16 21:39) Labs Laboratory Tests Test 10/26/16 10/26/16 18:32 20:35 Urine Color STRAW Urine Turbidity CLOUDY Urine pH 8.5 Urine Specific [place] 1.012 Urine Protein NEG mg/dL Urine Glucose (UA) NEG mg/dL Urine Ketones NEG mg/dL Urine Occult Blood TRACE Urine Nitrite NEG Urine Bilirubin NEG Urine Leukocyte Esterase NEG Urine RBC 4-9 /hpf Urine WBC 0-2 /hpf Urine Squamous Epithelial > 8 /hpf Cells Urine Amorphous Sediment MOD Urine Mucus FEW /lpf Microscopic Urinalysis Comment CULT NOT INDICATED White Blood Count 16.4 TH/MM3 Red Blood Count 5.14 MIL/MM3 Hemoglobin 13.4 GM/DL Hematocrit 41.2 % Mean Corpuscular Volume 80.1 FL Mean Corpuscular Hemoglobin 26.1 PG Mean Corpuscular Hemoglobin 32.6 % Concent Red Cell Distribution Width 13.6 % Platelet Count 382 TH/MM3 Mean Platelet Volume 8.0 FL Neutrophils (%) (Auto) 85.7 % Lymphocytes (%) (Auto) 10.1 % Monocytes (%) (Auto) 3.4 % Eosinophils (%) (Auto) 0.5 % Basophils (%) (Auto) 0.3 % Neutrophils # (Auto) 14.0 TH/MM3 Lymphocytes # (Auto) 1.7 TH/MM3 Monocytes # (Auto) 0.6 TH/MM3 Eosinophils # (Auto) 0.1 TH/MM3 Basophils # (Auto) 0.0 TH/MM3 CBC Comment DIFF FINAL Differential Comment Sodium Level 140 MEQ/L Potassium Level 3.6 MEQ/L Chloride Level 106 MEQ/L Carbon Dioxide Level 25.6 MEQ/L Anion Gap 8 MEQ/L Blood Urea Nitrogen 8 MG/DL Creatinine 0.65 MG/DL Estimat Glomerular Filtration 125 ML/MIN Rate Random Glucose 89 MG/DL Calcium Level 8.2 MG/DL Total Bilirubin 0.7 MG/DL Aspartate Amino Transf 74 U/L (AST/SGOT) Alanine Aminotransferase 66 U/L (ALT/SGPT) Alkaline Phosphatase 83 U/L Total Protein 7.5 GM/DL Albumin 3.5 GM/DL Lipase 12923 U/L [place] Medical Record Reviewed: Yes Supervised Visit with JEANNETTE: No Interpretation(s) Vital Signs Date Time Temp Pulse Resp B/P Pulse Ox O2 Delivery O2 Flow Rate FiO2 10/26/16 18:40 100 10/26/16 17:51 98.3 88 16 152/98 100 CBC & BMP Diagram 10/26/16 20:35 Last Impressions Abdomen/Pelvis CT 10/26/168 Signed Impressions: Service Date/Time: October 19:16 - CONCLUSION: 1. Bilateral nephrolithiasis as above without evidence of acute obstructive uropathy. There is an 8mm stone in the right renal pelvis which certainly could be irritating the urothelium and/or causing microscopic hematuria. No ureteral calculus demonstrated. Patient has bilateral medullary calcinosis. Ephraim Calderon MD Lipase: 10,516, elevated; ast/alt: elevation; alk phos: wnl Differential Diagnosis accepted in transfer of care from Dr Donaldson; please refer to her dictation Narrative Course accepted in transfer of care from Dr Donaldson; follow up pending labs, CT and disposition @ 8:40 PM Patient with complaint of ongoing pain additional Dilaudid 1 mg IV and Zofran 4 mg IV administered some: Difficult to with IV access additional IV access obtained to right upper extremity forearm volar aspect with 20-gauge Angiocath; specimens collected and sent for resulting At 9:29 PM patient has evidence of hyper lipase anemia pancreatitis will be admitted for ongoing IV fluids and kept nothing by mouth bowel rest pain management and medication as needed for nausea vomiting. Physician Communication Physician Communication call placed to [facility] service for Dr Larios Diagnosis Primary Impression: Pancreatitis Qualified Code: K85.90 - Acute pancreatitis, unspecified complication status, unspecified pancreatitis type Additional Impression: Flank pain Admitting Information Admitting Physician Requests: Admit Yvonne Garrett MD October 26, 2016 19:14
--- NOTE | 2016-10-26 19:50 | RADHPO ---
EXAM DATE/TIME: 10/26/2016 19:16 [place] COMPARISON: CT ABDOMEN & PELVIS W/O CONTRAST, December 14, 2013, 3:09. INDICATIONS : Right flank pain. Nausea and vomiting. Microhematuria. ORAL CONTRAST: No oral contrast ingested. RADIATION DOSE: 19.25 CTDIvol (mGy) MEDICAL HISTORY : Gastroesophageal reflux disease. Hypertension. Renal calculi. SURGICAL HISTORY : section. Hysterectomy.Tubal ligation. ENCOUNTER: Initial ACUITY: 2 days PAIN SCALE: 10/10 LOCATION: Right flank TECHNIQUE: Volumetric scanning of the abdomen and pelvis was performed. Using automated exposure control and ad justment of the mA and/or kV according to patient size, radiation dose was kept as low as reasonably achievable to obtain optimal diagnostic quality images. FINDINGS: LOWER LUNGS: The visualized lower lungs are clear. LIVER: Homogeneous density without lesion. There is no dilation of the biliary tree. No calcified gallston es. SPLEEN: Normal size without lesion. PANCREAS: Within normal limits. KIDNEYS: Numerous small nonobstructing stones in both kidneys. Largest stone on the right is approximately 8 m m and in the renal pelvis. Largest stone on the left is 3 mm, lower pole. Medullary calcinosis again noted. No ureteral calculus demonstrated no hydronephrosis or hydroureter. ADRENAL GLANDS: Within normal limits. VASCULAR: There is no aortic aneurysm. BOWEL/MESENTERY: The stomach, small bowel, and colon demonstrate no acute abnormality. There is no free intraperitone al air or fluid. ABDOMINAL WALL: Within normal limits. RETROPERITONEUM: There is no lymphadenopathy. BLADDER: No wall thickening or mass. REPRODUCTIVE: Within normal limits. INGUINAL: There is no lymphadenopathy or hernia. MUSCULOSKELETAL: Within normal limits for patient age. CONCLUSION: 1. Bilateral nephrolithiasis as above without evidence of acute obstructive uropathy. There is an 8mm stone in the right renal pelvis which certainly could be irritating the urothelium and/or causing mi croscopic hematuria. No ureteral calculus demonstrated. Patient has bilateral medullary calcinosis. Ephraim Calderon MD on October 26, 2016 at 19:45 Board Certified Radiologist. This report was verified electronically.
[2016-10-26] MEDS ORDERED: ONDANSETRON HCL 4 MG/2 ML VIAL IV PUSH ONE (20:30)
[2016-10-26] MEDS ORDERED: HYDROmorphone HCL PF 1 MG/ML VIAL IV PUSH ONE (20:30)
[2016-10-26 20:44] LABS: BASOPHIL % 0.3 % (0.0-2.0); EOSINOPHIL # 0.1 TH/MM3 (0-0.4); EOSINOPHIL % 0.5 % (0.0-4.0); HEMATOCRIT 41.2 % (35.0-46.0); LYMPH % 10.1 % (9.0-44.0); LYMPHOCYTE # 1.7 TH/MM3 (1.0-4.8); MEAN CELL VOLUME 80.1 FL (80.0-100.0); MEAN CORPUSCULAR HEMOGLOBIN 26.1 PG (27.0-34.0); MEAN CORPUSCULAR HGB CONC 32.6 % (32.0-36.0); MONO % 3.4 % (0.0-8.0); NEUT % 85.7 % (16.0-70.0); PLATELET COUNT 382 TH/MM3 (150-450); RED BLOOD COUNT 5.14 MIL/MM3 (4.00-5.30); RED CELL DISTRIBUTION WIDTH 13.6 % (11.6-17.2); WHITE BLOOD COUNT 16.4 TH/MM3 (4.0-11.0)
[2016-10-26 20:45] LABS: HEMO FLAGS DIFF FINAL
[2016-10-26 20:50] LABS: CHLORIDE 106 MEQ/L (98-107); POTASSIUM 3.6 MEQ/L (3.5-5.1); SODIUM (NA) 140 MEQ/L (136-145)
[2016-10-26 20:54] LABS: ANION GAP 8 MEQ/L (5-15); BICARBONATE 25.6 MEQ/L (21.0-32.0); BLOOD UREA NITROGEN 8 MG/DL (7-18)
[2016-10-26 20:56] LABS: ALT (GPT) 66 U/L (10-53); AST (GOT) 74 U/L (15-37)
[2016-10-26 20:57] LABS: GLOMERULAR FILTRATION RATE 125 ML/MIN (>89)
[2016-10-26 20:58] LABS: TOTAL BILIRUBIN ADULT 0.7 MG/DL (0.2-1.0)
[2016-10-26 20:59] LABS: ALKALINE PHOSPHATASE 83 U/L (45-117)
[2016-10-26 21:13] VITALS: BP 135/71; PULSE 87; O2SAT 98
[2016-10-26] MEDS ORDERED: NALOXONE HCL 0.4 MG/ML AMP IV PRN (21:45)
[2016-10-26] MEDS ORDERED: SODIUM CHLORIDE 0.9% FLUSH 10 ML FLUSH IVF PRN (21:45)
[2016-10-26 21:59] VITALS: O2SAT 98
[2016-10-26] MEDS ORDERED: KETOROLAC TROMETHAMINE 30 MG/ML (IVP) VIAL IV PUSH ONE (22:00)
[2016-10-26] MEDS ORDERED: PANTOPRAZOLE SODIUM 40 MG VIAL IV PUSH ONE (22:00)
[2016-10-26] MEDS: SODIUM CHLOR 0.9% 1000 ML INJ 1,000 ML IV SCH (22:10)
[2016-10-26 23:02] VITALS: BP 132/78; PULSE 77; RESP 18
[2016-10-27] VITALS (10 sets, daily range): BP systolic 119–143; BP diastolic 66–96; PULSE 70–100; RESP 20; TEMP 97.1–98.2; O2SAT 95–100
[2016-10-27] MEDS: HYDROmorphone HCL PF 1 MG/ML VIAL IV PUSH PRN ×5 (00:16→21:29)
[2016-10-27] MEDS: SODIUM CHLOR 0.9% 1000 ML INJ 1,000 ML IV SCH ×4 (02:37→16:34)
[2016-10-27] MEDS: ONDANSETRON HCL 4 MG/2 ML VIAL IV PUSH PRN ×4 (03:00→21:20)
[2016-10-27 06:44] LABS: AUTOMATED NEUTROPHIL # 9.4 TH/MM3 (1.8-7.7); BASOPHIL # 0.1 TH/MM3 (0-0.2); BASOPHIL % 0.6 % (0.0-2.0); EOSINOPHIL % 0.1 % (0.0-4.0); LYMPH % 15.1 % (9.0-44.0); LYMPHOCYTE # 1.8 TH/MM3 (1.0-4.8); MEAN CELL VOLUME 81.9 FL (80.0-100.0); MEAN CORPUSCULAR HEMOGLOBIN 27.6 PG (27.0-34.0); MEAN CORPUSCULAR HGB CONC 33.7 % (32.0-36.0); MONO % 3.5 % (0.0-8.0); NEUT % 80.7 % (16.0-70.0); PLATELET COUNT 343 TH/MM3 (150-450); RED BLOOD COUNT 4.64 MIL/MM3 (4.00-5.30); RED CELL DISTRIBUTION WIDTH 13.6 % (11.6-17.2); WHITE BLOOD COUNT 11.7 TH/MM3 (4.0-11.0)
[2016-10-27 06:48] LABS: HEMO FLAGS AUTO DIFF
[2016-10-27 06:51] LABS: CHLORIDE 106 MEQ/L (98-107); POTASSIUM 3.6 MEQ/L (3.5-5.1); SODIUM (NA) 140 MEQ/L (136-145)
[2016-10-27 06:59] LABS: ANION GAP 8 MEQ/L (5-15); BICARBONATE 25.6 MEQ/L (21.0-32.0); BLOOD UREA NITROGEN 6 MG/DL (7-18)
[2016-10-27 07:00] LABS: ALT (GPT) 105 U/L (10-53); AST (GOT) 80 U/L (15-37)
[2016-10-27 07:02] LABS: GLOMERULAR FILTRATION RATE 132 ML/MIN (>89); TOTAL BILIRUBIN ADULT 0.6 MG/DL (0.2-1.0)
[2016-10-27 07:03] LABS: ALKALINE PHOSPHATASE 85 U/L (45-117)
[2016-10-27 07:20] LABS: SCAN/DIFF AUTO DIFF CONFIRMED
--- NOTE | 2016-10-27 08:04 | HHI.HP ---
[facility] Constantin Montemayor MD Admission Diagnosis Acute Pancreatitis; nephrolithiasis Diagnoses: (1) Pancreatitis Diagnosis: Principal Chief Complaint: abdominal pain Travel History International Travel<30 Days: No Contact w/Intl Traveler <30 Da: No Traveled to Known Affected Are: No History of Present Illness patient is a 36 y/o female with history of nephrolithiasis who presented to ER with abdominal pain. she says that the pain started three days ago. pain is epigastric in location and moderate to severe in intensity. the pain is worse with eating. the pain was associated with nausea, emesis for the past three days and some loose BM's yesterday. she had some chills but no fever. she's also complaining of some swelling and pain to both legs, more on the left side which started two weeks ago.she's being followed up by and is supposed to have the surgery for the right kidney stone next month. Review of Systems Constitutional: COMPLAINS OF: Chills, DENIES: Fever, Weight loss, Night Sweats Eyes: DENIES: Blurred vision, Diplopia, Vision loss, Double Vision Ears, nose, mouth, throat: DENIES: Tinnitus, Vertigo, Throat pain, Epistaxis Respiratory: DENIES: Apneas, Cough, Snoring, Wheezing, Hemoptysis, Sputum production, Shortness of breath Cardiovascular: COMPLAINS OF: Lower Extremity Edema, DENIES: Chest pain, Palpitations, Syncope, Dyspnea on Exertion, PND, Orthopnea, Claudication Gastrointestinal: COMPLAINS OF: Abdominal pain, Diarrhea, Nausea, Vomiting, DENIES: Black stools, Bloody stools, Constipation, Difficulty Swallowing, Anorexia Genitourinary: DENIES: Urinary frequency, Urgency, Hematuria, Dysuria Musculoskeletal: DENIES: Joint pain, Muscle aches, Stiffness, Joint Swelling Integumentary: DENIES: Rash Neurologic: DENIES: Abnormal gait, Headache, Localized weakness, Paresthesias, Seizures, Speech Problems, Tremor, Poor Balance Psychiatric: DENIES: Anxiety, Confusion, Mood changes, Depression, Hallucinations, Agitation, Suicidal Ideation, Homicidal Ideation, Delusions Past Family Social History Past Medical History hypertension dyslipidemia Past Surgical History partial hysterectomy Reported Medications Ventolin Hfa 18 GM Inh (Albuterol Sulfate) 90 Mcg/Act Aer 2 Puff INH Q4H PRN Norvasc (Amlodipine Besylate) 10 Mg Tab 10 Mg PO DAILY Allergies: Coded Allergies: Celebrex (Verified Allergy, Severe, SOB/EDEMA, 10/26/16) Iodine (Verified Allergy, Severe, SOB/EDEMA, 10/26/16) Morphine (Verified Allergy, Severe, itching and hives, 10/26/16) new onset for pt. received Morphine earlier without incident Rocephin (Verified Allergy, Severe, SOB/EDEMA, 10/26/16) Seafood (Verified Allergy, Severe, SOB/EDEMA, 10/26/16) Wellbutrin (Verified Allergy, Severe, SOB/EDEMA, 10/26/16) Contrast Media (Verified Allergy, Unknown, 10/26/16) pt allergic to iodine Uncoded Allergies: FLU SHOT (Allergy, Mild, Anaphylaxis, 03/26/15) Active Ordered Medications Current Medications Ondansetron HCl 4 mg 4 mg ONCE ONCE IVP Last administered on 10/26/16 19:32; Start 10/26/16 at 18:30; Stop 10/26/16 at 18:31; Status DC Sodium Chloride (NS 1000 ml Inj) 1,000 ml @ 1,000 mls/hr Q1H IV Last administered on 10/26/16 19:33; Start 10/26/16 at 18:18; Stop 10/26/16 at 19:17 ; Status DC Sodium Chloride (NS Flush) 2 ml UNSCH PRN IV FLUSH FLUSH AFTER USING IV ACCESS Last administered on 10/26/16 19:33; Start 10/26/16 at 18:30; Stop 10/26/16 at 21:45; Status DC Hydromorphone HCl (Dilaudid Pf Inj) 1 mg ONCE ONCE IVS Last administered on 19:33; Start 10/26/16 at 18:30; Stop 10/26/16 at 18:31; Status DC Hydromorphone HCl (Dilaudid Pf Inj) 1 mg ONCE ONCE IV PUSH Last administered on 10/26/16 20:49; Start 10/26/16 at 20:30; Stop 10/26/16 at 20:31; Status DC Ondansetron HCl 4 mg 4 mg ONCE ONCE IV PUSH Last administered on 10/26/16 20: 49; Start 10/26/16 at 20:30; Stop 10/26/16 at 20:31; Status DC Sodium Chloride 1,000 ml @ 250 mls/hr Q4H IV ; Start 10/26/16 at 20:30; Stop at 21:43; Status DC Sodium Chloride (NS 1000 ml Inj) 1,000 ml @ 200 mls/hr Q5H IV Last administered on 10/26/16 22:10; Start 10/26/16 at 21:37 Sodium Chloride (NS Flush) 2 ml UNSCH PRN IV FLUSH FLUSH AFTER USING IV ACCESS ; Start 10/26/16 at 21:45 Sodium Chloride (NS Flush) 2 ml BID IV FLUSH ; Start 10/27/16 at 09:00 Naloxone HCl (Narcan Inj) 0.4 mg UNSCH PRN IV SEE LABEL COMMENTS; Start at 21:45 Hydromorphone HCl (Dilaudid Pf Inj) 0.5 mg Q4H PRN IV PUSH pain >5 Last administered on 10/27/16 05:00; Start 10/26/16 at 21:45 Sodium Chloride (NS Flush) 2 ml BID IV FLUSH ; Start 10/27/16 at 09:00; Status UNV Sodium Chloride (NS Flush) 2 ml UNSCH PRN IVF FLUSH AFTER USING IV ACCESS; Start 10/26/16 at 21:45; Status UNV Pantoprazole Sodium (Protonix Inj) 40 mg ONCE ONCE IV PUSH Last administered on 10/26/16 22:09; Start 10/26/16 at 22:00; Stop 10/26/16 at 22:01; Status DC Ketorolac Tromethamine (Toradol Inj) 30 mg ONCE ONCE IV PUSH Last administered on 10/26/16 22:09; Start 10/26/16 at 22:00; Stop 10/26/16 at 22:01 ; Status DC Ondansetron HCl (Zofran Inj) 4 mg Q6HR PRN IV PUSH NAUSEA OR VOMITING Last administered on 10/27/16 03:00; Start 10/27/16 at 03:00 Family History hypertension and diabetes Social History no smoking. drinks occasionally. Physical Exam Vital Signs Vital Signs Date Time Temp Pulse Resp B/P Pulse Ox O2 Delivery O2 Flow Rate FiO2 10/27/16 04:00 97.5 81 20 119/66 98 10/27/16 01:30 97.1 79 20 134/83 96 10/27/16 01:21 73 10/26/16 23:02 77 18 132/78 Room Air 10/26/16 21:59 98 10/26/16 21:13 87 135/71 98 Room Air 10/26/16 18:40 100 10/26/16 17:51 98.3 88 16 152/98 100 Physical Exam GENERAL: This is a well-nourished, well-developed patient, in no apparent distress. SKIN: No rashes, ecchymoses or lesions. Cool and dry. HEAD: Atraumatic. Normocephalic. No temporal or scalp tenderness. EYES: Pupils equal round and reactive. Extraocular motions intact. No scleral icterus. No injection or drainage. ENT: Nose without bleeding, purulent drainage or septal hematoma. Throat without erythema, tonsillar hypertrophy or exudate. Uvula midline. Airway patent. NECK: Trachea midline. No JVD or lymphadenopathy. Supple, nontender, no meningeal signs. CARDIOVASCULAR: Regular rate and rhythm without murmurs, gallops, or rubs. RESPIRATORY: Clear to auscultation. Breath sounds equal bilaterally. No wheezes , rales, or rhonchi. GASTROINTESTINAL: Abdomen soft, epigastric tenderness, nondistended. No hepato- splenomegaly, or palpable masses. No guarding. MUSCULOSKELETAL: Extremities with bilateral pedal edema and some calf tenderness NEUROLOGICAL: Awake and alert. Cranial nerves II through XII intact. Motor and sensory grossly within normal limits. Five out of 5 muscle strength in all muscle groups. Normal speech. Laboratory Laboratory Tests Test 10/26/16 10/26/16 10/27/16 18:32 20:35 06:20 Urine Color STRAW Urine Turbidity CLOUDY Urine pH 8.5 Urine Specific [place] 1.012 Urine Protein NEG Urine Glucose (UA) NEG Urine Ketones NEG Urine Occult Blood TRACE Urine Nitrite NEG Urine Bilirubin NEG Urine Leukocyte Esterase NEG Urine RBC 4-9 Urine WBC 0-2 Urine Squamous Epithelial > 8 Cells Urine Amorphous Sediment MOD Urine Mucus FEW Microscopic Urinalysis Comment CULT NOT INDICATED White Blood Count 16.4 11.7 Red Blood Count 5.14 4.64 Hemoglobin 13.4 12.8 Hematocrit 41.2 38.0 Mean Corpuscular Volume 80.1 81.9 Mean Corpuscular Hemoglobin 26.1 27.6 Mean Corpuscular Hemoglobin 32.6 33.7 Concent Red Cell Distribution Width 13.6 13.6 Platelet Count 382 343 Mean Platelet Volume 8.0 8.1 Neutrophils (%) (Auto) 85.7 80.7 Lymphocytes (%) (Auto) 10.1 15.1 Monocytes (%) (Auto) 3.4 3.5 Eosinophils (%) (Auto) 0.5 0.1 Basophils (%) (Auto) 0.3 0.6 Neutrophils # (Auto) 14.0 9.4 Lymphocytes # (Auto) 1.7 1.8 Monocytes # (Auto) 0.6 0.4 Eosinophils # (Auto) 0.1 0.0 Basophils # (Auto) 0.0 0.1 CBC Comment DIFF FINAL AUTO DIFF Differential Comment AUTO DIFF CONFIRMED Sodium Level 140 140 Potassium Level 3.6 3.6 Chloride Level 106 106 Carbon Dioxide Level 25.6 25.6 Anion Gap 8 8 Blood Urea Nitrogen 8 6 Creatinine 0.65 0.62 Estimat Glomerular Filtration 125 132 Rate Random Glucose 89 113 Calcium Level 8.2 7.7 Total Bilirubin 0.7 0.6 Aspartate Amino Transf 74 80 (AST/SGOT) Alanine Aminotransferase 66 105 (ALT/SGPT) Alkaline Phosphatase 83 85 Total Protein 7.5 7.2 Albumin 3.5 3.3 Lipase 18766 Result Diagram: 10/27/1661910/27/16619 Imaging Last Impressions Abdomen/Pelvis CT 10/26/168 Signed Impressions: Service Date/Time: October 19:16 - CONCLUSION: 1. Bilateral nephrolithiasis as above without evidence of acute obstructive uropathy. There is an 8mm stone in the right renal pelvis which certainly could be irritating the urothelium and/or causing microscopic hematuria. No ureteral calculus demonstrated. Patient has bilateral medullary calcinosis. Ephraim Calderon MD Assessment and Plan Assessment and Plan A/P - acute pancreatitis started on clear liquid diet- continue IV fluid along with pain control and antiemetics as needed. check the GB sonogram and repeat lipase in am. -elevated LFT's; will check the GB sonogram as noted above -swelling/pain to both legs; check d-dimer -nephrolithiasis; continue with pain control- f/u with ( d/w ) -hypertension; resume home meds -DVT prophylaxis with lovenox Discussed Condition With the patient. Physician Certification 2 Midnight Certification Type: Admission for Inpatient Services Order for Inpatient Services The services are ordered in accordance with Medicare regulations or non- Medicare payer requirements, as applicable. In the case of services not specified as inpatient-only, they are appropriately provided as inpatient services in accordance with the 2-midnight benchmark. Estimated LOS (days): 2 days is the estimated time the patient will need to remain in the hospital, assuming treatment plan goals are met and no additional complications. Post-Hospital Plan: Home Problem Qualifiers (1) Pancreatitis: Qualified Code: K85.90 - Acute pancreatitis, unspecified complication status, unspecified pancreatitis type Irene Shaikh MD October 27, 2016 08:04
[2016-10-27] MEDS ORDERED: ALBUTEROL SULFATE 90 MCG/ACT HFA 8 GM INHALER INH PRN (08:15)
--- NOTE | 2016-10-27 08:45 | MB ---
cc: BRUNA SALCIDO M.D. DATE OF CONSULTATION 10/27/2016 DATE OF 1980 REASON FOR REFERRAL Abdominal pain Thank you for the consultation for this 36-year-old -[place] lady who has kidney stones diagnosed a few weeks ago. She was going to go to have a lithotripsy and in few days the patient came in complaining of mid-epigastric pain radiating to the flank with some nausea and vomiting. The pain was severe almost 10/10. She stated it is different than her kidney disease pain which is usually in the back. This one was in the front area. The patient stated that she never had anything similar in that location, but she had multiple pain in the back. She denied any hematemesis. No coffee-ground emesis. She had a few episodes of bilious vomitus. PAST MEDICAL HISTORY Significant for: 1. Asthma 2. Anxiety 3. 4. High cholesterol 5. Hypertension 6. Questionable history of cholecystitis SOCIAL HISTORY Occasional alcohol. She denied any tobacco or drugs. ALLERGIES MULTIPLE ALLERGIES INCLUDING SEAFOOD, ROCEPHIN, WELLBUTRIN, CONTRAST MEDIA, IODINE, MORPHINE, CELEBREX, QUESTIONABLE FLU SHOT. REVIEW OF SYSTEMS All 12-points negative except HPI. PHYSICAL EXAMINATION Alert, oriented in no acute distress. VITAL SIGNS: Stable. HEENT: Pupils are not reactive to light. NECK: Supple. CHEST: Clear. CARDIAC: Regular rate and rhythm. ABDOMEN: Soft, nondistended. Positive bowel sounds. The patient has moderate tenderness in the mid epigastric area. Positive bowel sounds. No hepatosplenomegaly. Obese. No masses. EXTREMITIES: No edema, clubbing or cyanosis. NEUROLOGIC: Intact. PSYCHOLOGIC: Appropriate. LABORATORY DATA Electrolytes normal. BUN 6, creatinine 0.62, total bilirubin 0.6, AST was 80, ALT 105, alk phos 85, lipase was 10,516 yesterday. Urine was cloudy with trace of blood, white count yesterday was 16.4, today 11.7, platelet 343, hemoglobin 12.8. CT scan bilateral nephrolithiasis, no evidence of acute obstruction 8 mm stone in the pelvis. ASSESSMENT/PLAN 1. A 36-year-old -[place] lady with nephrolithiasis. The patient is going to have lithotripsy soon. 2. Elevated lipase with abdominal pain consistent with pancreatitis, questionable etiology. The patient denied significant amount of alcohol even though she has elevated liver function test was could be fatty liver. I am going to do an ultrasound to rule out any biliary disease or fatty liver. I advised the patient to stop alcohol completely. 3. We will check IgG4. 4. We will check lipid profile since the patient had Hypercholesterolemia. I am not sure about her triglycerides. 5. We will continue hydration and pain management. MD ARIANA Bolanos/LEVON /8:06 AM /8:31 AM
[2016-10-27] MEDS: SODIUM CHLORIDE 0.9% FLUSH 10 ML FLUSH IV FLUSH SCH ×2 (09:00→21:29)
[2016-10-27] MEDS ORDERED: SODIUM CHLORIDE 0.9% FLUSH 10 ML FLUSH IV FLUSH SCH (09:00)
--- NOTE | 2016-10-27 09:14 | RADHPO ---
EXAM DATE/TIME: 10/27/2016 13:20 [facility] COMPARISON: No previous studies available for comparison. EXTERNAL COMPARISON : [facility], CT Abdomen, October 06, 2016CT Abdomen, TLI, 06/10/2015. Ultrasound abdomen, POI, 06/13/ 014. CT Abdomen, TLI 09/15/11. [facility], MRI Abdomen, 03/16/2011. INDICATIONS : Abdominal pain, vomiting. MEDICAL HISTORY : Hypertension. Kidney stones. SURGICAL HISTORY : Tonsillectomy. section. Hysterectomy. Renal surgery. ENCOUNTER: Initial ACUITY: 1 day PAIN SCORE: 9/10 LOCATION: Bilateral upper quadrant MEASUREMENTS: LIVER: 18.3 cm length COMMON DUCT: 5 mm RIGHT KIDNEY: 13.5 x 5.2 x 4.4 cm LEFT KIDNEY: 13.0 x 5.3 x 5.9 cm SPLEEN: 7.3 cm length AORTA: 1.8cm maximal FINDINGS: No focal abnormalities in the liver, pancreas, spleen, aorta or IVC. There are nonobstructing calculi in both kidneys. Numerous stones in the gallbladder with a thickened wall and trace pericholecystic fluid. Common bile duct measures 5-6 mm in diameter. Portal venous flow is normal direction. CONCLUSION: 1. Numerous nonobstructing bilateral renal calculi. 2. Numerous gallstones with thickened gallbladder wall to 7 mm and trace pericholecystic fluid. Diffe rential diagnosis includes cholecystitis. Sriram Shore MD on October 27, 2016 at 9:04 Board Certified Radiologist. This report was verified electronically.
[2016-10-27] MEDS: ENOXAPARIN SODIUM 40 MG/0.4 ML SYRINGE SQ SCH (09:38)
[2016-10-27] MEDS: metroNIDAZOLE 500 MG INJ 100 ML IV SCH ×2 (14:01→21:31)
[2016-10-27] MEDS ORDERED: LEVOFLOXACIN 500 MG PREMIX INJ 100 ML IV SCH (15:00)
--- NOTE | 2016-10-27 15:30 | RADHPO ---
EXAM DATE/TIME: 10/27/2016 14:43 [facility] COMPARISON: No previous studies available for comparison. INDICATIONS : Edema. MEDICAL HISTORY : Hypercholesterolemia. Gastroesophageal reflux disease. Migraines. Hypertension. Asthma. Cholecystiti s. Renal disease. Kidney stones. Nausea. Vomiting. SURGICAL HISTORY : Tonsillectomy. section. Hysterectomy.Tubal ligation. Lithotripsy. ENCOUNTER: Initial ACUITY: 1 day PAIN SCORE: 7/10 LOCATION: Bilateral leg. TECHNIQUE: Venous ultrasound of the left and right leg was performed from the inguinal ligament to the proximal calf. Real-time, color Doppler and spectral tracing, compression and augmentation techniques were us ed. FINDINGS: RIGHT LEG: There is normal compressibility of the deep venous system from the inguinal region to the proximal ca lf. No echogenic clot is seen in the lumen of the common femoral, femoral, popliteal, and posterior tibial veins. There is a normal response of the venous system to proximal and distal augmentation an d respiration. LEFT LEG: There is normal compressibility of the deep venous system from the inguinal region to the proximal ca lf. No echogenic clot is seen in the lumen of the common femoral, femoral, popliteal, and posterior tibial veins. There is a normal response of the venous system to proximal and distal augmentation an d respiration. CONCLUSION: Normal examination. Ephraim Mcdaniel MD on October 27, 2016 at 15:26 Board Certified Radiologist. This report was verified electronically.
[2016-10-27] MEDS ORDERED: diphenhydrAMINE HCL 50 MG/ML VIAL IV PUSH ONE (16:30)
[2016-10-27] MEDS: PANTOPRAZOLE SODIUM 40 MG VIAL IV PUSH SCH (21:20)
[2016-10-28] VITALS (9 sets, daily range): BP systolic 116–151; BP diastolic 66–99; PULSE 68–110; RESP 18–20; TEMP 97.3–99.2; O2SAT 94–99
[2016-10-28] MEDS: ONDANSETRON HCL 4 MG/2 ML VIAL IV PUSH PRN ×2 (05:59→21:58)
[2016-10-28] MEDS: HYDROmorphone HCL PF 1 MG/ML VIAL IV PUSH PRN ×3 (06:01→15:18)
[2016-10-28] MEDS: metroNIDAZOLE 500 MG INJ 100 ML IV SCH ×3 (06:02→22:00)
[2016-10-28] MEDS: SODIUM CHLOR 0.9% 1000 ML INJ 1,000 ML IV SCH ×2 (06:02→13:26)
--- NOTE | 2016-10-28 06:49 | HHI.PR ---
Subjective Subjective Notes no acute issues, still with ruq, epigastric pain, mild nausea with diet Objective Vitals/I&O Vital Signs Date Time Temp Pulse Resp B/P Pulse Ox O2 Delivery O2 Flow Rate FiO2 10/28/16 04:40 97.6 83 20 139/81 98 10/26/16 23:02 Room Air Labs Laboratory Tests Test 10/27/16 09:40 D-Dimer Quantitative (PE/DVT) 1.20 Triglycerides Level 75 Lipase 2411 Cardiovascular: Regular Lungs: Clear Abdomen: Other (soft +ttp ruq, epigastric) A/P Assessment and Plan concern for acute jane with cholelithiasis and gallstone pancreatitis PLAN Clears check and trend lipase await improvement in labs await GI recs for intervention pt will need lap jane prior to d/c and when labs improve Krishna Jennings MD October 28, 2016 06:49
--- NOTE | 2016-10-28 08:35 | HHI.PR ---
Subjective Remarks resting comfortably with no distress. still with some abdominal pain. no fever. reportedly had an allergic reaction to levaquin yesterday. Objective Vitals Vital Signs Date Time Temp Pulse Resp B/P Pulse Ox O2 Delivery O2 Flow Rate FiO2 10/28/16 04:40 97.6 83 20 139/81 98 10/28/16 03:44 84 10/28/16 00:23 97.8 110 18 133/66 99 10/27/16 22:23 18 10/27/16 20:30 82 10/27/16 20:23 98.2 100 20 138/81 99 10/27/16 19:12 95 10/27/16 16:00 98.0 70 20 122/81 100 10/27/16 12:00 97.8 85 20 137/96 97 10/27/16 09:50 99 I/O 10/27/16 10/27/16 10/27/16 10/28/16 10/28/16 10/28/16 07:00 15:00 23:00 07:00 15:00 23:00 Intake Total 1200 ml 660 ml 2000 ml 1200 ml Output Total 700 ml 1603 ml 2480 ml Balance 500 ml -943 ml -480 ml 1200 ml Intake Oral 660 ml IV Total 1200 ml 2000 ml 1200 ml Output Urine Total 700 ml 1600 ml 2480 ml Emesis 3 ml # Voids 1 2 # Bowel Movements 0 Result Diagram: 10/27/16 0620 10/27/16 0620 Imaging Last Impressions Lower Extremity Ultrasound 10/27/16 0000 Signed Impressions: Service Date/Time: Thursday, October 27, 2016 14:43 - CONCLUSION: Normal examination. Ephraim Mcdaniel MD Abdomen Ultrasound 10/27/16 0000 Signed Impressions: Service Date/Time: Thursday, October 27, 2016 13:20 - CONCLUSION: 1. Numerous nonobstructing bilateral renal calculi. 2. Numerous gallstones with thickened gallbladder wall to 7 mm and trace pericholecystic fluid. Differential diagnosis includes cholecystitis. Sriram Shore MD Abdomen/Pelvis CT 10/26/16 1818 Signed Impressions: Service Date/Time: October 19:16 - CONCLUSION: 1. Bilateral nephrolithiasis as above without evidence of acute obstructive uropathy. There is an 8mm stone in the right renal pelvis which certainly could be irritating the urothelium and/or causing microscopic hematuria. No ureteral calculus demonstrated. Patient has bilateral medullary calcinosis. Ephraim Calderon MD Objective Remarks GENERAL: This is a well-nourished, well-developed patient, in no apparent distress. CARDIOVASCULAR: Regular rate and regular rhythm without murmurs, gallops, or rubs. RESPIRATORY: Clear to auscultation. Breath sounds equal bilaterally. No wheezes , rales, or rhonchi. GASTROINTESTINAL: Abdomen soft, mild epigastric tenderness, nondistended. Normal, active bowel sounds MUSCULOSKELETAL: Extremities without clubbing, cyanosis, or edema. NEURO: Alert & Oriented x4 to person, place, time, situation. Moves all ext x4 Procedures none Medications and IVs Current Medications Ondansetron HCl 4 mg 4 mg ONCE ONCE IVP Last administered on 10/26/16 19:32; Start 10/26/16 at 18:30; Stop 10/26/16 at 18:31; Status DC Sodium Chloride (NS 1000 ml Inj) 1,000 ml @ 1,000 mls/hr Q1H IV Last administered on 10/26/16 19:33; Start 10/26/16 at 18:18; Stop 10/26/16 at 19:17 ; Status DC Sodium Chloride (NS Flush) 2 ml UNSCH PRN IV FLUSH FLUSH AFTER USING IV ACCESS Last administered on 10/26/16 19:33; Start 10/26/16 at 18:30; Stop 10/26/16 at 21:45; Status DC Hydromorphone HCl (Dilaudid Pf Inj) 1 mg ONCE ONCE IVS Last administered on 19:33; Start 10/26/16 at 18:30; Stop 10/26/16 at 18:31; Status DC Hydromorphone HCl (Dilaudid Pf Inj) 1 mg ONCE ONCE IV PUSH Last administered on 10/26/16 20:49; Start 10/26/16 at 20:30; Stop 10/26/16 at 20:31; Status DC Ondansetron HCl 4 mg 4 mg ONCE ONCE IV PUSH Last administered on 10/26/16 20: 49; Start 10/26/16 at 20:30; Stop 10/26/16 at 20:31; Status DC Sodium Chloride 1,000 ml @ 250 mls/hr Q4H IV ; Start 10/26/16 at 20:30; Stop at 21:43; Status DC Sodium Chloride (NS 1000 ml Inj) 1,000 ml @ 125 mls/hr Q8H IV Last administered on 10/28/16 06:02; Start 10/26/16 at 21:37 Sodium Chloride (NS Flush) 2 ml UNSCH PRN IV FLUSH FLUSH AFTER USING IV ACCESS ; Start 10/26/16 at 21:45 Sodium Chloride (NS Flush) 2 ml BID IV FLUSH Last administered on 10/27/16 21: 29; Start 10/27/16 at 09:00 Naloxone HCl (Narcan Inj) 0.4 mg UNSCH PRN IV SEE LABEL COMMENTS; Start at 21:45 Hydromorphone HCl (Dilaudid Pf Inj) 0.5 mg Q4H PRN IV PUSH pain >5 Last administered on 10/28/16 06:01; Start 10/26/16 at 21:45 Sodium Chloride (NS Flush) 2 ml BID IV FLUSH ; Start 10/27/16 at 09:00; Status UNV Sodium Chloride (NS Flush) 2 ml UNSCH PRN IVF FLUSH AFTER USING IV ACCESS; Start 10/26/16 at 21:45; Status UNV Pantoprazole Sodium (Protonix Inj) 40 mg ONCE ONCE IV PUSH Last administered on 10/26/16 22:09; Start 10/26/16 at 22:00; Stop 10/26/16 at 22:01; Status DC Ketorolac Tromethamine (Toradol Inj) 30 mg ONCE ONCE IV PUSH Last administered on 10/26/16 22:09; Start 10/26/16 at 22:00; Stop 10/26/16 at 22:01 ; Status DC Ondansetron HCl (Zofran Inj) 4 mg Q6HR PRN IV PUSH NAUSEA OR VOMITING Last administered on 10/28/16 05:59; Start 10/27/16 at 03:00 Pantoprazole Sodium (Protonix Inj) 40 mg Q24H IV PUSH Last administered on 10/27 21:20; Start 10/27/16 at 22:00 Albuterol Sulfate (Proair Hfa Inh) 2 puff Q4H PRN INH SHORTNESS OF BREATH; Start 10/27/16 at 08:15 Amlodipine Besylate (Norvasc) 10 mg DAILY PO Last administered on 10/27/16 09: 38; Start 10/27/16 at 09:00 Enoxaparin Sodium 40 mg 40 mg Q24H SQ Last administered on 10/27/16 09:38; Start 10/27/16 at 09:00 Levofloxacin/ Dextrose 100 ml @ 100 mls/hr Q24H IV Last administered on 14:02; Start 10/27/16 at 15:00; Stop 10/27/16 at 16:30; Status DC Metronidazole (Flagyl 500 Mg Inj) 100 ml @ 100 mls/hr Q8H IV Last administered on 10/28/16 06:02; Start 10/27/16 at 14:00 Diphenhydramine HCl (Benadryl Inj) 25 mg ONCE ONCE IV PUSH Last administered on 10/27/16 16:34; Start 10/27/16 at 16:30; Stop 10/27/16 at 16:31; Status DC Diphenhydramine HCl (Benadryl) 25 mg Q6H PRN PO rash or itching; Start at 16:30 A/P Assessment and Plan A/P - acute pancreatitis started on clear liquid diet- continue IV fluid along with pain control and antiemetics as needed. lipase today pending. -acute cholecystitis/ cholelithiasis continue Flagyl ( patient has allergy to levaquin and Rocephin)- GI and surgery evaluation appreciated; plan for cholecystectomy prior to discharge. -swelling/pain to both legs; venous doppler negative for DVT -nephrolithiasis; continue with pain control- f/u with as outpatient ( previously d/w ) -hypertension; resumed home meds -DVT prophylaxis with Irene Brooks MD October 28, 2016 08:35
[2016-10-28] MEDS: SODIUM CHLORIDE 0.9% FLUSH 10 ML FLUSH IV FLUSH SCH ×2 (09:00→22:00)
--- NOTE | 2016-10-28 09:46 | HHI.GIFU ---
Subjective Remarks Still complaining of abdominal pain but less in severity and minimal nausea and vomiting. Objective Vitals I&O Vital Signs Date Time Temp Pulse Resp B/P Pulse Ox O2 Delivery O2 Flow Rate FiO2 10/28/16 08:00 99.2 71 20 140/86 99 10/28/16 04:40 97.6 83 20 139/81 98 10/28/16 03:44 84 10/28/16 00:23 97.8 110 18 133/66 99 10/27/16 22:23 18 10/27/16 20:30 82 10/27/16 20:23 98.2 100 20 138/81 99 10/27/16 19:12 95 10/27/16 16:00 98.0 70 20 122/81 100 10/27/16 12:00 97.8 85 20 137/96 97 10/27/16 09:50 99 I/O 10/27/16 10/27/16 10/27/16 10/28/16 10/28/16 10/28/16 06:59 14:59 22:59 06:59 14:59 22:59 Intake Total 1200 ml 660 ml 2000 ml 1200 ml Output Total 700 ml 1603 ml 2480 ml Balance 500 ml -943 ml -480 ml 1200 ml Intake Oral 660 ml IV Total 1200 ml 2000 ml 1200 ml Output Urine Total 700 ml 1600 ml 2480 ml Emesis 3 ml # Voids 1 2 # Bowel Movements 0 Physical Exam HEENT: Pupils round and reactive to light; normocephalic; atraumatic; no jaundice. Throat is clear. NECK: Neck is supple, no JVD, no lymphadenopathy. CHEST: Chest is clear to auscultation and percussion. CARDIAC: Regular rate and rhythm with no murmur gallop or rubs. ABDOMEN: Soft, minimal tenderness; no hepatosplenomegaly; bowel sounds are present in all four quadrants. EXTREMITIES: No clubbing, cyanosis, or edema. SKIN: Normal; no rash; no jaundice. FIELD OPERATIONS TECHNICIAN: No focal deficits; alert and oriented times three. Assessment and Plan Plan A 36-year-old -[place] lady - Pancreatitis with elevated lipase and Amylase - Acute Cholecystitis - Elevated Liver enzymes, transaminitis. Plan: - Continue supportive care - MRCP to role out CBD stone - Liquid diet for now. - Daily labs - Pain control - Further recommendations to follow. Jeremy Mckinney MD October 28, 2016 09:46
[2016-10-28] MEDS: ENOXAPARIN SODIUM 40 MG/0.4 ML SYRINGE SQ SCH (10:00)
[2016-10-28 13:40] LABS: CHLORIDE 107 MEQ/L (98-107); POTASSIUM 3.4 MEQ/L (3.5-5.1); SODIUM (NA) 141 MEQ/L (136-145)
[2016-10-28 13:44] LABS: ANION GAP 6 MEQ/L (5-15); BICARBONATE 28.1 MEQ/L (21.0-32.0); BLOOD UREA NITROGEN 3 MG/DL (7-18)
[2016-10-28 13:47] LABS: ALT (GPT) 69 U/L (10-53); AST (GOT) 18 U/L (15-37); GLOMERULAR FILTRATION RATE 132 ML/MIN (>89)
[2016-10-28 13:49] LABS: TOTAL BILIRUBIN ADULT 0.5 MG/DL (0.2-1.0)
[2016-10-28 13:50] LABS: ALKALINE PHOSPHATASE 79 U/L (45-117)
--- NOTE | 2016-10-28 19:21 | RADHPO ---
EXAM DATE/TIME: 10/28/2016 18:36 [facility] COMPARISON: No previous studies available for comparison. INDICATIONS : Abdominal pain. MEDICAL HISTORY : Hypertension. Hypercholesterolemia. SURGICAL HISTORY : Tonsillectomy. section. Hysterectomy. ENCOUNTER: Initial ACUITY: 1 day PAIN SCORE: 5/10 LOCATION: Right upper quadrant TECHNIQUE: Multiplanar, multisequence magnetic resonance imaging of the abdomen was performed. High-resolution 3D dataset was utilized to reconstruct maximum-intensity projection (MIP) images. FINDINGS: Multiple gallstones are seen in the gallbladder most in the neck of the gallbladder. There is no in trahepatic biliary duct dilatation. Common duct is prominent. There are least 2 small stones either in the distal cystic duct or in the proximal common duct. Portion of the pancreas visualized is unremarkable. There is trace amount of fluid around the gallbladder. Kidneys are unremarkable. . CONCLUSION: 1. Multiple gallstones with some fluid around the gallbladder 2. At least 2 stones in the proximal common duct. Chandana Cortez MD FACR on October 28, 2016 at 19:16 Board Certified Radiologist. This report was verified electronically.
[2016-10-28] MEDS: PANTOPRAZOLE SODIUM 40 MG VIAL IV PUSH SCH (22:02)
[2016-10-29] MEDS: SODIUM CHLOR 0.9% 1000 ML INJ 1,000 ML IV SCH ×3 (00:12→21:39)
[2016-10-29 00:23] VITALS: BP 105/82; PULSE 77; RESP 18; TEMP 97.6; O2SAT 96
[2016-10-29 04:23] VITALS: BP 129/90; PULSE 87; RESP 20; TEMP 97.9; O2SAT 98
[2016-10-29] MEDS: metroNIDAZOLE 500 MG INJ 100 ML IV SCH ×3 (05:41→21:30)
[2016-10-29 08:00] VITALS: BP 158/97; PULSE 82; RESP 18; TEMP 98.1; O2SAT 97
--- NOTE | 2016-10-29 09:08 | HHI.PR ---
Subjective Remarks still with some epigastric pain and nausea. no fever. Objective Vitals Vital Signs Date Time Temp Pulse Resp B/P Pulse Ox O2 Delivery O2 Flow Rate FiO2 10/29/16 04:23 97.9 87 20 129/90 98 10/29/16 00:23 97.6 77 18 105/82 96 10/28/16 20:23 97.3 77 18 116/73 94 10/28/16 20:10 76 10/28/16 16:00 97.5 68 18 149/89 99 10/28/16 15:39 99 21 10/28/16 12:00 97.6 71 18 151/99 94 10/28/16 10:46 20 I/O 10/28/16 10/28/16 10/28/16 10/29/16 10/29/16 10/29/16 07:00 15:00 23:00 07:00 15:00 23:00 Intake Total 1200 ml 650 ml 1500 ml Balance 1200 ml 650 ml 1500 ml Intake Oral 650 ml IV Total 1200 ml 1500 ml # Voids 2 4 2 2 Result Diagram: 10/27/16 0620 10/28/16 1300 Imaging Last Impressions Cholangiopancreatography MRI 10/28/16 0000 Signed Impressions: Service Date/Time: Friday, October 28, 2016 18:36 - CONCLUSION: 1. Multiple gallstones with some fluid around the gallbladder 2. At least 2 stones in the proximal common duct. Chandana Cortez MD FACR Lower Extremity Ultrasound 10/27/16 0000 Signed Impressions: Service Date/Time: Thursday, October 27, 2016 14:43 - CONCLUSION: Normal examination. Ephraim Mcdaniel MD Abdomen Ultrasound 10/27/16 0000 Signed Impressions: Service Date/Time: Thursday, October 27, 2016 13:20 - CONCLUSION: 1. Numerous nonobstructing bilateral renal calculi. 2. Numerous gallstones with thickened gallbladder wall to 7 mm and trace pericholecystic fluid. Differential diagnosis includes cholecystitis. Sriram Shore MD Abdomen/Pelvis CT 10/26/16 1818 Signed Impressions: Service Date/Time: October 19:16 - CONCLUSION: 1. Bilateral nephrolithiasis as above without evidence of acute obstructive uropathy. There is an 8mm stone in the right renal pelvis which certainly could be irritating the urothelium and/or causing microscopic hematuria. No ureteral calculus demonstrated. Patient has bilateral medullary calcinosis. Ephraim Calderon MD Objective Remarks GENERAL: This is a well-nourished, well-developed patient, in no apparent distress. CARDIOVASCULAR: Regular rate and regular rhythm without murmurs, gallops, or rubs. RESPIRATORY: Clear to auscultation. Breath sounds equal bilaterally. No wheezes , rales, or rhonchi. GASTROINTESTINAL: Abdomen soft, mild epigastric tenderness, nondistended. Normal, active bowel sounds MUSCULOSKELETAL: Extremities without clubbing, cyanosis, or edema. NEURO: Alert & Oriented x4 to person, place, time, situation. Moves all ext x4 Procedures none Medications and IVs Current Medications Ondansetron HCl 4 mg 4 mg ONCE ONCE IVP Last administered on 10/26/16 19:32; Start 10/26/16 at 18:30; Stop 10/26/16 at 18:31; Status DC Sodium Chloride (NS 1000 ml Inj) 1,000 ml @ 1,000 mls/hr Q1H IV Last administered on 10/26/16 19:33; Start 10/26/16 at 18:18; Stop 10/26/16 at 19:17 ; Status DC Sodium Chloride (NS Flush) 2 ml UNSCH PRN IV FLUSH FLUSH AFTER USING IV ACCESS Last administered on 10/26/16 19:33; Start 10/26/16 at 18:30; Stop 10/26/16 at 21:45; Status DC Hydromorphone HCl (Dilaudid Pf Inj) 1 mg ONCE ONCE IVS Last administered on 19:33; Start 10/26/16 at 18:30; Stop 10/26/16 at 18:31; Status DC Hydromorphone HCl (Dilaudid Pf Inj) 1 mg ONCE ONCE IV PUSH Last administered on 10/26/16 20:49; Start 10/26/16 at 20:30; Stop 10/26/16 at 20:31; Status DC Ondansetron HCl 4 mg 4 mg ONCE ONCE IV PUSH Last administered on 10/26/16 20: 49; Start 10/26/16 at 20:30; Stop 10/26/16 at 20:31; Status DC Sodium Chloride 1,000 ml @ 250 mls/hr Q4H IV ; Start 10/26/16 at 20:30; Stop at 21:43; Status DC Sodium Chloride (NS 1000 ml Inj) 1,000 ml @ 125 mls/hr Q8H IV Last administered on 10/29/16 00:12; Start 10/26/16 at 21:37 Sodium Chloride (NS Flush) 2 ml UNSCH PRN IV FLUSH FLUSH AFTER USING IV ACCESS ; Start 10/26/16 at 21:45 Sodium Chloride (NS Flush) 2 ml BID IV FLUSH Last administered on 10/28/16 22: 00; Start 10/27/16 at 09:00 Naloxone HCl (Narcan Inj) 0.4 mg UNSCH PRN IV SEE LABEL COMMENTS; Start at 21:45 Hydromorphone HCl (Dilaudid Pf Inj) 0.5 mg Q4H PRN IV PUSH pain >5 Last administered on 10/28/16 15:18; Start 10/26/16 at 21:45 Sodium Chloride (NS Flush) 2 ml BID IV FLUSH ; Start 10/27/16 at 09:00; Status UNV Sodium Chloride (NS Flush) 2 ml UNSCH PRN IVF FLUSH AFTER USING IV ACCESS; Start 10/26/16 at 21:45; Status UNV Pantoprazole Sodium (Protonix Inj) 40 mg ONCE ONCE IV PUSH Last administered on 10/26/16 22:09; Start 10/26/16 at 22:00; Stop 10/26/16 at 22:01; Status DC Ketorolac Tromethamine (Toradol Inj) 30 mg ONCE ONCE IV PUSH Last administered on 10/26/16 22:09; Start 10/26/16 at 22:00; Stop 10/26/16 at 22:01 ; Status DC Ondansetron HCl (Zofran Inj) 4 mg Q6HR PRN IV PUSH NAUSEA OR VOMITING Last administered on 10/28/16 21:58; Start 10/27/16 at 03:00 Pantoprazole Sodium (Protonix Inj) 40 mg Q24H IV PUSH Last administered on 10/28 22:02; Start 10/27/16 at 22:00 Albuterol Sulfate (Proair Hfa Inh) 2 puff Q4H PRN INH SHORTNESS OF BREATH; Start 10/27/16 at 08:15 Amlodipine Besylate (Norvasc) 10 mg DAILY PO Last administered on 10/28/16 10: 00; Start 10/27/16 at 09:00 Enoxaparin Sodium 40 mg 40 mg Q24H SQ Last administered on 10/28/16 10:00; Start 10/27/16 at 09:00 Levofloxacin/ Dextrose 100 ml @ 100 mls/hr Q24H IV Last administered on 14:02; Start 10/27/16 at 15:00; Stop 10/27/16 at 16:30; Status DC Metronidazole (Flagyl 500 Mg Inj) 100 ml @ 100 mls/hr Q8H IV Last administered on 10/29/16 05:41; Start 10/27/16 at 14:00 Diphenhydramine HCl (Benadryl Inj) 25 mg ONCE ONCE IV PUSH Last administered on 10/27/16 16:34; Start 10/27/16 at 16:30; Stop 10/27/16 at 16:31; Status DC Diphenhydramine HCl (Benadryl) 25 mg Q6H PRN PO rash or itching; Start at 16:30 Oxycodone HCl (Roxicodone) 5 mg ONCE ONCE PO Last administered on 10/28/16 22 :04; Start 10/28/16 at 21:45; Stop 10/28/16 at 21:50; Status DC A/P Assessment and Plan A/P - acute pancreatitis started on clear liquid diet- continue IV fluid along with pain control and antiemetics as needed. -acute cholecystitis/ cholelithiasis MRCP with proximal common bile duct stone continue Flagyl ( patient has allergy to levaquin and Rocephin)- d/w ; will transfer to the main campus for ERCP. surgery evaluation appreciated; plan for cholecystectomy prior to discharge. -swelling/pain to both legs; venous doppler negative for DVT -nephrolithiasis; continue with pain control- f/u with as outpatient ( previously d/w ) -hypertension; resumed home meds -DVT prophylaxis with Irene Brooks MD October 29, 2016 09:07
[2016-10-29] MEDS: SODIUM CHLORIDE 0.9% FLUSH 10 ML FLUSH IV FLUSH SCH ×2 (09:17→21:00)
[2016-10-29] MEDS: ENOXAPARIN SODIUM 40 MG/0.4 ML SYRINGE SQ SCH (09:17)
--- NOTE | 2016-10-29 09:45 | HHI.GIFU ---
Subjective Remarks Completely pain free and asymptomatic, tolerating fluid diet well. Objective Vitals I&O Vital Signs Date Time Temp Pulse Resp B/P Pulse Ox O2 Delivery O2 Flow Rate FiO2 10/29/16 08:00 98.1 82 18 158/97 97 10/29/16 04:23 97.9 87 20 129/90 98 10/29/16 00:23 97.6 77 18 105/82 96 10/28/16 20:23 97.3 77 18 116/73 94 10/28/16 20:10 76 10/28/16 16:00 97.5 68 18 149/89 99 10/28/16 15:39 99 21 10/28/16 12:00 97.6 71 18 151/99 94 10/28/16 10:46 20 I/O 10/28/16 10/28/16 10/28/16 10/29/16 10/29/16 10/29/16 07:00 15:00 23:00 07:00 15:00 23:00 Intake Total 1200 ml 650 ml 1500 ml Balance 1200 ml 650 ml 1500 ml Intake Oral 650 ml IV Total 1200 ml 1500 ml # Voids 2 4 2 2 Laboratory Laboratory Tests Test 10/28/16 13:00 Sodium Level 141 Potassium Level 3.4 Chloride Level 107 Carbon Dioxide Level 28.1 Anion Gap 6 Blood Urea Nitrogen 3 Creatinine 0.62 Estimat Glomerular Filtration 132 Rate Random Glucose 82 Calcium Level 8.0 Total Bilirubin 0.5 Aspartate Amino Transf 18 (AST/SGOT) Alanine Aminotransferase 69 (ALT/SGPT) Alkaline Phosphatase 79 Total Protein 7.2 Albumin 3.3 Lipase 332 Physical Exam HEENT: Pupils round and reactive to light; normocephalic; atraumatic; no jaundice. Throat is clear. NECK: Neck is supple, no JVD, no lymphadenopathy. CHEST: Chest is clear to auscultation and percussion. CARDIAC: Regular rate and rhythm with no murmur gallop or rubs. ABDOMEN: Soft, minimal tenderness; no hepatosplenomegaly; bowel sounds are present in all four quadrants. EXTREMITIES: No clubbing, cyanosis, or edema. SKIN: Normal; no rash; no jaundice. BARGE PILOT: No focal deficits; alert and oriented times three. Assessment and Plan Plan Assessment: - Pancreatitis with elevated lipase and Amylase normalized and asymptomatic now - Acute Cholecystitis - Elevated Liver enzymes, transaminitis, improving - Stones in MRCP. Plan: - Continue supportive care - Possible ERCP - Daily labs - Will discuss with surgical team for further recommendations. Jeremy Mckinney MD October 29, 2016 09:45
[2016-10-29 12:00] VITALS: BP 145/89; PULSE 76; RESP 18; TEMP 98.7; O2SAT 100
[2016-10-29 13:30] VITALS: BP 123/72; PULSE 78; RESP 18; TEMP 97.5; O2SAT 96
[2016-10-29] MEDS: ONDANSETRON HCL 4 MG/2 ML VIAL IV PUSH PRN (13:53)
[2016-10-29] MEDS: HYDROmorphone HCL PF 1 MG/ML VIAL IV PUSH PRN ×2 (15:58→21:33)
[2016-10-29 20:00] VITALS: BP 125/85; PULSE 72; RESP 20; TEMP 97.6; O2SAT 96
[2016-10-29] MEDS: PANTOPRAZOLE SODIUM 40 MG VIAL IV PUSH SCH (21:30)
[2016-10-30] VITALS (13 sets, daily range): BP systolic 115–138; BP diastolic 64–99; PULSE 70–103; RESP 18–20; TEMP 96.6–100.4; O2SAT 94–99
[2016-10-30] MEDS: SODIUM CHLOR 0.9% 1000 ML INJ 1,000 ML IV SCH ×4 (00:39→22:58)
[2016-10-30] MEDS: metroNIDAZOLE 500 MG INJ 100 ML IV SCH ×3 (05:48→21:00)
[2016-10-30] MEDS: HYDROmorphone HCL PF 1 MG/ML VIAL IV PUSH PRN ×4 (05:53→21:03)
[2016-10-30] MEDS: ONDANSETRON HCL 4 MG/2 ML VIAL IV PUSH PRN ×2 (05:54→21:01)
[2016-10-30] MEDS: SODIUM CHLORIDE 0.9% FLUSH 10 ML FLUSH IV FLUSH SCH ×2 (08:38→20:59)
[2016-10-30] MEDS: ENOXAPARIN SODIUM 40 MG/0.4 ML SYRINGE SQ SCH (08:39)
[2016-10-30] MEDS ORDERED: LACTATED RINGER'S 1000 ML IV PRN (11:00)
[2016-10-30] MEDS ORDERED: CHLORHEXIDINE GLUCONATE 2 % 1 PACK (2 CLOTHS) TOPICAL PRN (11:00)
[2016-10-30] MEDS ORDERED: INSULIN HUMAN REGULAR 1,000 UNITS/10 ML VIAL SQ PRN (11:00)
[2016-10-30] MEDS ORDERED: METOPROLOL TARTRATE 25 MG TAB PO PRN (11:00)
[2016-10-30] MEDS ORDERED: POVIDONE IODINE 5% (ANTISEPSIS KIT) 4 APPLICATIONS EACH NARE PRN (11:00)
[2016-10-30] MEDS ORDERED: SODIUM CHLORID 0.9% 500 ML IV PRN (11:00)
--- NOTE | 2016-10-30 11:48 | HHI.PR ---
Subjective Subjective Notes DAILY PROGRESS NOTE FOR SURGICAL ATTENDING, DR. SRIRAM MALIN Resting in bed Awaiting ERCP today Objective Vitals/I&O Vital Signs Date Time Temp Pulse Resp B/P Pulse Ox O2 Delivery O2 Flow Rate FiO2 10/30/16 10:49 77 10/30/16 08:33 98.3 20 115/64 99 10/28/16 15:39 21 10/26/16 23:02 Room Air Labs Laboratory Tests Test 10/26/16 10/27/16 10/27/16 10/28/16 18:32 06:20 09:40 13:00 Urine Color STRAW Urine Turbidity CLOUDY Urine pH 8.5 Urine Specific Perley 1.012 Urine Protein NEG mg/dL Urine Glucose (UA) NEG mg/dL Urine Ketones NEG mg/dL Urine Occult Blood TRACE Urine Nitrite NEG Urine Bilirubin NEG Urine Leukocyte Esterase NEG Urine RBC 4-9 /hpf Urine WBC 0-2 /hpf Urine Squamous Epithelial > 8 /hpf Cells Urine Amorphous Sediment MOD Urine Mucus FEW /lpf Microscopic Urinalysis Comment CULT NOT INDICATED White Blood Count 11.7 TH/MM3 Red Blood Count 4.64 MIL/MM3 Hemoglobin 12.8 GM/DL Hematocrit 38.0 % Mean Corpuscular Volume 81.9 FL Mean Corpuscular Hemoglobin 27.6 PG Mean Corpuscular Hemoglobin 33.7 % Concent Red Cell Distribution Width 13.6 % Platelet Count 343 TH/MM3 Mean Platelet Volume 8.1 FL Neutrophils (%) (Auto) 80.7 % Lymphocytes (%) (Auto) 15.1 % Monocytes (%) (Auto) 3.5 % Eosinophils (%) (Auto) 0.1 % Basophils (%) (Auto) 0.6 % Neutrophils # (Auto) 9.4 TH/MM3 Lymphocytes # (Auto) 1.8 TH/MM3 Monocytes # (Auto) 0.4 TH/MM3 Eosinophils # (Auto) 0.0 TH/MM3 Basophils # (Auto) 0.1 TH/MM3 CBC Comment AUTO DIFF Differential Comment AUTO DIFF CONFIRMED D-Dimer Quantitative (PE/DVT) 1.20 MG/L FEU Triglycerides Level 75 MG/DL Sodium Level 141 MEQ/L Potassium Level 3.4 MEQ/L Chloride Level 107 MEQ/L Carbon Dioxide Level 28.1 MEQ/L Anion Gap 6 MEQ/L Blood Urea Nitrogen 3 MG/DL Creatinine 0.62 MG/DL Estimat Glomerular Filtration 132 ML/MIN Rate Random Glucose 82 MG/DL Calcium Level 8.0 MG/DL Total Bilirubin 0.5 MG/DL Aspartate Amino Transf 18 U/L (AST/SGOT) Alanine Aminotransferase 69 U/L (ALT/SGPT) Alkaline Phosphatase 79 U/L Total Protein 7.2 GM/DL Albumin 3.3 GM/DL Lipase 332 U/L Radiology Last Impressions Cholangiopancreatography MRI 10/28/16 0000 Signed Impressions: Service Date/Time: Friday, October 28, 2016 18:36 - CONCLUSION: 1. Multiple gallstones with some fluid around the gallbladder 2. At least 2 stones in the proximal common duct. Chandana Cortez MD FACR Lower Extremity Ultrasound 10/27/16 0000 Signed Impressions: Service Date/Time: Thursday, October 27, 2016 14:43 - CONCLUSION: Normal examination. Ephraim Mcdaniel MD Abdomen Ultrasound 10/27/16 0000 Signed Impressions: Service Date/Time: Thursday, October 27, 2016 13:20 - CONCLUSION: 1. Numerous nonobstructing bilateral renal calculi. 2. Numerous gallstones with thickened gallbladder wall to 7 mm and trace pericholecystic fluid. Differential diagnosis includes cholecystitis. Sriram Shore MD Abdomen/Pelvis CT 10/26/161817 Signed Impressions: Service Date/Time: October 19:16 - CONCLUSION: 1. Bilateral nephrolithiasis as above without evidence of acute obstructive uropathy. There is an 8mm stone in the right renal pelvis which certainly could be irritating the urothelium and/or causing microscopic hematuria. No ureteral calculus demonstrated. Patient has bilateral medullary calcinosis. Ephraim Calderon MD Cardiovascular: Regular Lungs: Clear Abdomen: Non-distended, Non-tender Extremities: No edema A/P Problem List: (1) Choledocholithiasis with acute cholecystitis (2) Cholelithiasis (3) Obesity (4) Right upper quadrant abdominal pain (5) Abnormal findings on diagnostic imaging of gallbladder Assessment and Plan 36 year old female with GS pancreatitis -MRCP shows 2 stones in common bile duct -GI planning ERCP today -NPO -Possible lap jane tomorrow if labs okay Attending Statement NOTE FOR SURGICAL ATTENDING, DR. SRIRAM MALIN I agree with above assessment and plan. The exam, history, and the medical decision-making described in the above note were completed with the assistance of the mid-level provider. I reviewed and agree with the findings presented. Patient undergo ERCP today Questions answered with her family member present Anxious to proceed with ERCP Told the patient depending on her recover from ERCP laparoscopic cholecystectomy in the near future I attest that I had a [id number] encounter with the patient on the same day, and personally performed and documented my assessment and findings in the medical record. The following services were provided during this hospital visit: Chart data review, vital sign assessments/reviewing monitor data Review of consultations notes if present. Medication orders/review and/or management Ordering and/or reviewing lab tests Ordering and/or interpreting/reviewing x-rays and/or diagnostic studies Care of the patient and discussion of the patient with the care team Documentation time To help prompt me to consider important information that might be impacting today's encounter and assessment, information from prior notes written by myself or my colleagues may have been "brought forward/copy and pasted" into today's note. Problem Qualifiers (1) Cholelithiasis: Qualified Code: K80.67 - Calculus of gallbladder and bile duct with acute on chronic cholecystitis, with obstruction Linette Peterson October 30, 2016 11:48 Sriram Malin MD October 30, 2016 12:42
--- NOTE | 2016-10-30 12:01 | HHI.PR ---
Subjective Remarks Going for ERCP today. With nausea, did not vomit. Abdominal pain is controlled by meds. No fever or chills. No cough, chest pain. No diarrhea. Objective Vitals Vital Signs Date Time Temp Pulse Resp B/P Pulse Ox O2 Delivery O2 Flow Rate FiO2 10/30/16 10:49 77 10/30/16 08:33 98.3 75 20 115/64 99 10/30/16 05:48 84 138/96 10/30/16 04:56 80 10/30/16 04:30 97.9 89 20 137/99 96 10/30/16 00:00 96.6 77 20 129/87 99 10/29/16 20:00 97.6 72 20 125/85 96 10/29/16 16:28 19 10/29/16 13:30 97.5 78 18 123/72 96 I/O 10/29/16 10/29/16 10/29/16 10/30/16 10/30/16 10/30/16 07:00 15:00 23:00 07:00 15:00 23:00 Intake Total 1500 ml 720 ml 1500 ml Balance 1500 ml 720 ml 1500 ml Intake Oral 720 ml IV Total 1500 ml 1500 ml # Voids 2 4 3 # Bowel Movements 1 0 Result Diagram: 10/27/16 0620 10/28/16 1300 Imaging Last Impressions Cholangiopancreatography MRI 10/28/16 0000 Signed Impressions: Service Date/Time: Friday, October 28, 2016 18:36 - CONCLUSION: 1. Multiple gallstones with some fluid around the gallbladder 2. At least 2 stones in the proximal common duct. Chandana Cortez MD FACR Lower Extremity Ultrasound 10/27/16 0000 Signed Impressions: Service Date/Time: Thursday, October 27, 2016 14:43 - CONCLUSION: Normal examination. Ephraim Mcdaniel MD Abdomen Ultrasound 10/27/16 0000 Signed Impressions: Service Date/Time: Thursday, October 27, 2016 13:20 - CONCLUSION: 1. Numerous nonobstructing bilateral renal calculi. 2. Numerous gallstones with thickened gallbladder wall to 7 mm and trace pericholecystic fluid. Differential diagnosis includes cholecystitis. Sriram Shore MD Abdomen/Pelvis CT 10/26/16 1818 Signed Impressions: Service Date/Time: October 19:16 - CONCLUSION: 1. Bilateral nephrolithiasis as above without evidence of acute obstructive uropathy. There is an 8mm stone in the right renal pelvis which certainly could be irritating the urothelium and/or causing microscopic hematuria. No ureteral calculus demonstrated. Patient has bilateral medullary calcinosis. Ephraim Calderon MD Objective Remarks GENERAL: This is a very pleasant 36 yo AA female, well-nourished, well- developed patient, in no apparent distress. CARDIOVASCULAR: Regular rate and regular rhythm without murmurs, gallops, or rubs. RESPIRATORY: Clear to auscultation. Breath sounds equal bilaterally. No wheezes , rales, or rhonchi. GASTROINTESTINAL: Abdomen soft, mild epigastric tenderness, nondistended. Normal , active bowel sounds MUSCULOSKELETAL: Extremities without clubbing, cyanosis, or edema. NEURO: Alert & Oriented x4 to person, place, time, situation. Moves all ext x4 Procedures none A/P Problem List: (1) Pancreatitis ICD Code: K85.90 Status: Acute Assessment and Plan Acute pancreatitis NPO as plan for ERCP- continue IV fluid along with pain control and antiemetics as needed. Acute cholecystitis/ cholelithiasis MRCP with proximal common bile duct stone continue Flagyl ( patient has allergy to levaquin and Rocephin)- NPO . Plan for ERCP 10/30. surgery evaluation appreciated; plan for cholecystectomy prior to discharge. Swelling/pain to both legs: venous doppler negative for DVT. Improved. Nephrolithiasis: continue with pain control- f/u with as outpatient ( previously d/w ) Hypertension: resumed home meds. Monitor VS -DVT prophylaxis with lovenox DC plan: Pending improvement Problem Qualifiers (1) Pancreatitis: Qualified Code: K85.90 - Acute pancreatitis, unspecified complication status, unspecified pancreatitis type Breann Aldrich MD October 30, 2016 12:01
[2016-10-30] MEDS ORDERED: IOHEXOL 350 MG/ML 100 ML BTL (for RAD DIAG) OTHER ONE (13:10)
[2016-10-30] MEDS ORDERED: NEOSTIGMINE 3 MG/3 ML SYR IV ONE (13:11)
[2016-10-30] MEDS ORDERED: ONDANSETRON HCL 4 MG/2 ML VIAL IV PUSH ONE (13:11)
[2016-10-30] MEDS ORDERED: PROPOFOL 200 MG/20 ML AMP IV ONE (13:11)
[2016-10-30] MEDS ORDERED: DO NOT ADM ANY ANTICOAGULANT DRUGS PRN (13:41)
--- NOTE | 2016-10-30 14:16 | RADRPT ---
EXAM DATE/TIME: 10/30/2016 13:16 [facility] COMPARISON: MRCP W/O CONTRAST, October 28, 2016, 18:36. INDICATIONS : Evaluate for obstruction FLUORO TIME: 1.25 minutes IMAGE COUNT: 4 CONTRAST: Instilled by Ordering Physician MEDICAL HISTORY : Gastroesophageal reflux disease. Hypertension. Renal calculi. SURGICAL HISTORY : section. Hysterectomy.Tubal ligation. ENCOUNTER: Subsequent ACUITY: 4 - 6 days PAIN SCORE: Non-responsive. LOCATION: Left Side abdomen down. FINDINGS: An ERCP was performed by the ordering physician. The images demonstrate cannulation of the common bile duct with opacification with contrast. There is no dilatation of the intra-or extrahepatic biliary tree. Contrast partially fills the gallbladder. N o filling defects are seen the common duct. Please refer to endoscopist report for further details. CONCLUSION: ERCP as above. Ephraim Isaac MD on October 30, 2016 at 14:09 Board Certified Radiologist. This report was verified electronically.
[2016-10-30 15:28] LABS: AUTOMATED NEUTROPHIL # 7.9 TH/MM3 (1.8-7.7); BASOPHIL % 0.3 % (0.0-2.0); EOSINOPHIL # 0.1 TH/MM3 (0-0.4); HEMATOCRIT 39.2 % (35.0-46.0); HEMO FLAGS DIFF FINAL; LYMPH % 18.5 % (9.0-44.0); LYMPHOCYTE # 1.9 TH/MM3 (1.0-4.8); MEAN CELL VOLUME 81.1 FL (80.0-100.0); MEAN CORPUSCULAR HEMOGLOBIN 26.2 PG (27.0-34.0); MEAN CORPUSCULAR HGB CONC 32.3 % (32.0-36.0); MONO % 3.5 % (0.0-8.0); NEUT % 76.7 % (16.0-70.0); PLATELET COUNT 318 TH/MM3 (150-450); RED BLOOD COUNT 4.84 MIL/MM3 (4.00-5.30); RED CELL DISTRIBUTION WIDTH 14.4 % (11.6-17.2); WHITE BLOOD COUNT 10.3 TH/MM3 (4.0-11.0)
[2016-10-30] MEDS: ACETAMINOPHEN/HYDROcodone 325 MG/5 MG TAB PO PRN (15:57)
[2016-10-30 15:59] LABS: ALT (GPT) 45 U/L (10-53); ANION GAP 9 MEQ/L (5-15); AST (GOT) 17 U/L (15-37); BICARBONATE 25.1 MEQ/L (21.0-32.0); CHLORIDE 104 MEQ/L (98-107); GLOMERULAR FILTRATION RATE 142 ML/MIN (>89); POTASSIUM 3.5 MEQ/L (3.5-5.1); SODIUM (NA) 138 MEQ/L (136-145)
[2016-10-30 16:01] LABS: ALKALINE PHOSPHATASE 73 U/L (45-117); TOTAL BILIRUBIN ADULT 0.4 MG/DL (0.2-1.0)
[2016-10-30 16:04] LABS: BLOOD UREA NITROGEN 7 MG/DL (7-18)
[2016-10-30] MEDS: PANTOPRAZOLE SODIUM 40 MG VIAL IV PUSH SCH (21:00)
[2016-10-30] MEDS: ACETAMINOPHEN 325 MG TAB PO PRN (21:00)
[2016-10-30] MEDS: diphenhydrAMINE HCL 25 MG CAP PO PRN (21:55)
[2016-10-30] MEDS ORDERED: ALBUTEROL SULFATE 90 MCG/ACT HFA 18 GM INHALER INH PRN (22:00)
[2016-10-31] VITALS (8 sets, daily range): BP systolic 120–144; BP diastolic 62–85; PULSE 77–90; RESP 16–20; TEMP 97.7–99.4; O2SAT 96–98
[2016-10-31 03:50] LABS: IGG SUBCLASSES 4 40.5 mg/dL (4-86)
[2016-10-31] MEDS: ONDANSETRON HCL 4 MG/2 ML VIAL IV PUSH PRN (06:05)
[2016-10-31] MEDS: ACETAMINOPHEN/HYDROcodone 325 MG/5 MG TAB PO PRN ×2 (06:06→20:14)
[2016-10-31] MEDS: metroNIDAZOLE 500 MG INJ 100 ML IV SCH ×4 (06:06→20:14)
[2016-10-31] MEDS: SODIUM CHLOR 0.9% 1000 ML INJ 1,000 ML IV SCH ×2 (07:19→15:19)
[2016-10-31] MEDS ORDERED: CHLORHEXIDINE GLUCONATE 2 % 1 PACK (2 CLOTHS) TOPICAL PRN (08:30)
[2016-10-31] MEDS ORDERED: LACTATED RINGER'S 1000 ML IV PRN (08:30)
[2016-10-31] MEDS ORDERED: SODIUM CHLORID 0.9% 500 ML IV PRN (08:30)
[2016-10-31] MEDS ORDERED: INSULIN HUMAN REGULAR 1,000 UNITS/10 ML VIAL SQ PRN (08:30)
[2016-10-31] MEDS ORDERED: METOPROLOL TARTRATE 25 MG TAB PO PRN (08:30)
[2016-10-31] MEDS: ENOXAPARIN SODIUM 40 MG/0.4 ML SYRINGE SQ SCH (08:53)
[2016-10-31] MEDS: HYDROmorphone HCL PF 1 MG/ML VIAL IV PUSH PRN (08:54)
[2016-10-31] MEDS: SODIUM CHLORIDE 0.9% FLUSH 10 ML FLUSH IV FLUSH SCH ×2 (08:54→20:15)
[2016-10-31 11:05] LABS: AUTOMATED NEUTROPHIL # 8.4 TH/MM3 (1.8-7.7); BASOPHIL # 0.1 TH/MM3 (0-0.2); BASOPHIL % 0.7 % (0.0-2.0); HEMATOCRIT 40.3 % (35.0-46.0); HEMO FLAGS DIFF FINAL; LYMPH % 25.4 % (9.0-44.0); LYMPHOCYTE # 3.2 TH/MM3 (1.0-4.8); MEAN CELL VOLUME 80.9 FL (80.0-100.0); MEAN CORPUSCULAR HEMOGLOBIN 26.4 PG (27.0-34.0); MEAN CORPUSCULAR HGB CONC 32.6 % (32.0-36.0); MONO % 6.2 % (0.0-8.0); NEUT % 67.7 % (16.0-70.0); PLATELET COUNT 348 TH/MM3 (150-450); RED BLOOD COUNT 4.98 MIL/MM3 (4.00-5.30); RED CELL DISTRIBUTION WIDTH 14.5 % (11.6-17.2); WHITE BLOOD COUNT 12.4 TH/MM3 (4.0-11.0)
[2016-10-31] MEDS ORDERED: NEOSTIGMINE 3 MG/3 ML SYR IV ONE (12:00)
[2016-10-31] MEDS ORDERED: ONDANSETRON HCL 4 MG/2 ML VIAL IV PUSH ONE (12:00)
[2016-10-31] MEDS ORDERED: PROPOFOL 200 MG/20 ML AMP IV ONE (12:00)
--- NOTE | 2016-10-31 12:16 | HHI.GIFU ---
Subjective Remarks Minimal abdominal pain today and tolerated diet well last night, NPO today for possible procedure. Objective Vitals I&O Vital Signs Date Time Temp Pulse Resp B/P Pulse Ox O2 Delivery O2 Flow Rate FiO2 10/31/16 12:05 97.7 78 20 144/85 98 10/31/16 07:58 98.8 85 20 129/85 98 10/31/16 07:00 77 10/31/16 05:34 99.1 89 16 120/62 96 10/31/16 00:47 98.7 88 18 120/71 97 10/30/16 22:58 98.9 10/30/16 21:44 95 21 10/30/16 20:23 100.4 103 18 130/71 94 10/30/16 19:57 87 10/30/16 16:47 99 21 10/30/16 16:00 98.3 80 20 123/71 99 10/30/16 14:25 98.4 68 16 121/74 100 Room Air 10/30/16 14:15 68 16 121/74 100 Room Air 10/30/16 14:00 70 16 123/74 99 Room Air 10/30/16 13:45 67 16 130/76 99 Room Air 10/30/16 13:39 98.0 86 16 127/84 100 Nasal Cannula 2 I/O 10/30/16 10/30/16 10/30/16 10/31/16 10/31/16 10/31/16 07:00 15:00 23:00 07:00 15:00 23:00 Intake Total 1500 ml 500 ml 865 ml Balance 1500 ml 500 ml 865 ml IV Total 1500 ml 200 ml 865 ml Other 300 ml # Voids 3 4 4 # Bowel Movements 0 0 Laboratory Laboratory Tests Test 10/30/16 10/31/16 15:04 10:31 White Blood Count 10.3 12.4 Red Blood Count 4.84 4.98 Hemoglobin 12.7 13.1 Hematocrit 39.2 40.3 Mean Corpuscular Volume 81.1 80.9 Mean Corpuscular Hemoglobin 26.2 26.4 Mean Corpuscular Hemoglobin 32.3 32.6 Concent Red Cell Distribution Width 14.4 14.5 Platelet Count 318 348 Mean Platelet Volume 8.0 8.1 Neutrophils (%) (Auto) 76.7 67.7 Lymphocytes (%) (Auto) 18.5 25.4 Monocytes (%) (Auto) 3.5 6.2 Eosinophils (%) (Auto) 1.0 0.0 Basophils (%) (Auto) 0.3 0.7 Neutrophils # (Auto) 7.9 8.4 Lymphocytes # (Auto) 1.9 3.2 Monocytes # (Auto) 0.4 0.8 Eosinophils # (Auto) 0.1 0.0 Basophils # (Auto) 0.0 0.1 CBC Comment DIFF FINAL DIFF FINAL Differential Comment Sodium Level 138 Potassium Level 3.5 Chloride Level 104 Carbon Dioxide Level 25.1 Anion Gap 9 Blood Urea Nitrogen 7 Creatinine 0.58 Estimat Glomerular Filtration 142 Rate Random Glucose 86 Calcium Level 8.1 Total Bilirubin 0.4 Aspartate Amino Transf 17 (AST/SGOT) Alanine Aminotransferase 45 (ALT/SGPT) Alkaline Phosphatase 73 Total Protein 7.1 Albumin 3.4 Lipase 437 Hematology Comments Physical Exam HEENT: Pupils round and reactive to light; normocephalic; atraumatic; no jaundice. Throat is clear. NECK: Neck is supple, no JVD, no lymphadenopathy. CHEST: Chest is clear to auscultation and percussion. CARDIAC: Regular rate and rhythm with no murmur gallop or rubs. ABDOMEN: Soft, minimal tenderness; no hepatosplenomegaly; bowel sounds are present in all four quadrants. EXTREMITIES: No clubbing, cyanosis, or edema. Assessment and Plan Plan Assessment: - Pancreatitis with elevated lipase and Amylase normalized and asymptomatic now - Acute Cholecystitis - Elevated Liver enzymes, transaminitis, improving - Stones in MRCP and cleared by ERCP. Plan: - Continue supportive care - Cholecystectomy - Daily labs - Please notify us if needed. Jeremy Mckinney MD October 31, 2016 12:16
[2016-10-31 12:20] LABS: ALKALINE PHOSPHATASE 75 U/L (45-117); ALT (GPT) 42 U/L (10-53); ANION GAP 11 MEQ/L (5-15); AST (GOT) 16 U/L (15-37); BICARBONATE 24.4 MEQ/L (21.0-32.0); BLOOD UREA NITROGEN 5 MG/DL (7-18); CHLORIDE 104 MEQ/L (98-107); GLOMERULAR FILTRATION RATE 121 ML/MIN (>89); POTASSIUM 3.5 MEQ/L (3.5-5.1); SODIUM (NA) 139 MEQ/L (136-145); TOTAL BILIRUBIN ADULT 0.5 MG/DL (0.2-1.0)
[2016-10-31] MEDS ORDERED: BUPIVACAINE/EPINEPHRINE 0.5% PF 30 ML VIAL ONE (12:53)
[2016-10-31] MEDS ORDERED: LIDOCAINE 1%/EPINEPHrine 1:100,000 SOLN 50 ML VIAL ONE (12:54)
--- NOTE | 2016-10-31 13:20 | HHI.PR ---
Subjective Remarks With constipation. Pain is controlled by meds. No n/v/d/c. For jane today Objective Vitals Vital Signs Date Time Temp Pulse Resp B/P Pulse Ox O2 Delivery O2 Flow Rate FiO2 10/31/16 12:05 97.7 78 20 144/85 98 10/31/16 07:58 98.8 85 20 129/85 98 10/31/16 07:00 77 10/31/16 05:34 99.1 89 16 120/62 96 10/31/16 00:47 98.7 88 18 120/71 97 10/30/16 22:58 98.9 10/30/16 21:44 95 21 10/30/16 20:23 100.4 103 18 130/71 94 10/30/16 19:57 87 10/30/16 16:47 99 21 10/30/16 16:00 98.3 80 20 123/71 99 10/30/16 14:25 98.4 68 16 121/74 100 Room Air 10/30/16 14:15 68 16 121/74 100 Room Air 10/30/16 14:00 70 16 123/74 99 Room Air 10/30/16 13:45 67 16 130/76 99 Room Air 10/30/16 13:39 98.0 86 16 127/84 100 Nasal Cannula 2 I/O 10/30/16 10/30/16 10/30/16 10/31/16 10/31/16 10/31/16 07:00 15:00 23:00 07:00 15:00 23:00 Intake Total 1500 ml 500 ml 865 ml Balance 1500 ml 500 ml 865 ml IV Total 1500 ml 200 ml 865 ml Other 300 ml # Voids 3 4 4 # Bowel Movements 0 0 Result Diagram: 10/31/16 1031 10/31/16 1137 Imaging Last Impressions GI Procedure 10/30/16 1130 Signed Impressions: Service Date/Time: Sunday, October 30, 2016 13:16 - CONCLUSION: ERCP as above. Ephraim Isaac MD Cholangiopancreatography MRI 10/28/16 0000 Signed Impressions: Service Date/Time: Friday, October 28, 2016 18:36 - CONCLUSION: 1. Multiple gallstones with some fluid around the gallbladder 2. At least 2 stones in the proximal common duct. Chandana Cortez MD FACR Lower Extremity Ultrasound 10/27/16 0000 Signed Impressions: Service Date/Time: Thursday, October 27, 2016 14:43 - CONCLUSION: Normal examination. Ephraim Mcdaniel MD Abdomen Ultrasound 10/27/16 0000 Signed Impressions: Service Date/Time: Thursday, October 27, 2016 13:20 - CONCLUSION: 1. Numerous nonobstructing bilateral renal calculi. 2. Numerous gallstones with thickened gallbladder wall to 7 mm and trace pericholecystic fluid. Differential diagnosis includes cholecystitis. Sriram Shore MD Abdomen/Pelvis CT 10/26/16 1818 Signed Impressions: Service Date/Time: October 19:16 - CONCLUSION: 1. Bilateral nephrolithiasis as above without evidence of acute obstructive uropathy. There is an 8mm stone in the right renal pelvis which certainly could be irritating the urothelium and/or causing microscopic hematuria. No ureteral calculus demonstrated. Patient has bilateral medullary calcinosis. Ephraim Calderon MD Objective Remarks GENERAL: This is a very pleasant 36 yo AA female, well-nourished, well- developed patient, in no apparent distress. CARDIOVASCULAR: Regular rate and regular rhythm without murmurs, gallops, or rubs. RESPIRATORY: Clear to auscultation. Breath sounds equal bilaterally. No wheezes , rales, or rhonchi. GASTROINTESTINAL: Abdomen soft, mild epigastric tenderness, nondistended. Normal , active bowel sounds MUSCULOSKELETAL: Extremities without clubbing, cyanosis, or edema. NEURO: Alert & Oriented x4 to person, place, time, situation. Moves all ext x4 Procedures none A/P Problem List: (1) Pancreatitis ICD Code: K85.90 Status: Acute Assessment and Plan Acute pancreatitis NPO as plan for ERCP- continue IV fluid along with pain control and antiemetics as needed. Acute cholecystitis/ cholelithiasis MRCP with proximal common bile duct stone continue Flagyl ( patient has allergy to levaquin and Rocephin)- S/p ERCP 10/30. surgery evaluation appreciated Cash for cholecystectomy today 10/31. Swelling/pain to both legs: venous doppler negative for DVT. Improved. Nephrolithiasis: continue with pain control- f/u with as outpatient ( previously d/w ) Hypertension: resumed home meds. Monitor VS -DVT prophylaxis with lovenox DC plan: Pending improvement , poss DC tomorrow if cleared by surg Problem Qualifiers (1) Pancreatitis: Qualified Code: K85.90 - Acute pancreatitis, unspecified complication status, unspecified pancreatitis type Breann Aldrich MD October 31, 2016 13:20
[2016-10-31] MEDS ORDERED: fentaNYL CITRATE 250 MCG/5 ML AMP ONE ×2 (13:24→15:13)
[2016-10-31] MEDS ORDERED: MIDAZOLAM HCL 2 MG/2 ML VIAL ONE (13:24)
[2016-10-31] MEDS ORDERED: FAMOTIDINE 20 MG/2 ML VIAL ONE (13:25)
[2016-10-31] MEDS ORDERED: DO NOT ADM ANY ANTICOAGULANT DRUGS PRN (15:00)
--- NOTE | 2016-10-31 15:09 | HHI.PR ---
Immediate Post Op Note Procedure Date: October 31, 2016 Pre Op Diagnosis: gallstone pancreatitis Post Op Diagnosis: same Surgeon: Krishna Jennings MD Wet End Helper(s): lap jane Procedure: lap jane Findings: distended gallbladder with stones Complications: none Specimen(s) removed: gallbladder Estimated blood loss: 5cc Anesthesia: General Drains: None IVF (800) Patient to: PACU Patient Condition: Good Krishna Jennings MD October 31, 2016 15:09
[2016-10-31] MEDS ORDERED: *RESP: ALBUTEROL 2.5 MG/3 ML NEB (PRN) PERIprocedural Use ONLY NEB ONE (15:13)
[2016-10-31] MEDS ORDERED: *MEPERIDINE 25 MG INJ VIAL PERIprocedural Use ONLY ONE (15:16)
[2016-10-31] MEDS ORDERED: *PROMETHAZINE 25 MG/ML VIAL PERIprocedural use ONLY ONE (15:38)
--- NOTE | 2016-10-31 18:08 | MB ---
cc: BRENDA STUART MD DATE OF CONSULTATION 10/27/2016 REASON FOR CONSULTATION Right upper quadrant epigastric pain, cholelithiasis, cholecystitis. HISTORY OF THE PRESENT ILLNESS The patient is a 36-year-old female history of nephrolithiasis. She presented to the emergency department with a three day history of right upper quadrant pain and in the epigastrium as well. She stated the pain was 9/10, continued to get worse, was sharp. Primarily located in the epigastric but radiating to the right side. She never had pain quite like this before. She says it is worse with movement better with lying still. She came to emergency department. Further evaluation with CT scan showing gallstones and kidney stones. She had a lipase of 10,000 and a normal bilirubin. She denied any associated fevers, chills. She did have some associated nausea. PAST MEDICAL HISTORY 1. Nephrolithiasis. 2. Hypertension. 3. Dyslipidemia. PAST SURGICAL HISTORY 1. Partial hysterectomy. 2. . ALLERGIES CONTRAST MEDIA, CELEBREX, FLU SHOT, IODINE, LEVOTHYROXINE, MORPHINE, ROCEPHIN, SEAFOOD, WELLBUTRIN. MEDICATIONS See EMR. SOCIAL HISTORY Denies smoking, EtOH or IVDA. FAMILY HISTORY Hypertension and diabetes in parents. REVIEW OF SYSTEMS GENERAL: The patient denies eye pain, ear pain. HEENT: Denies scleral icterus or rash. NECK: Denies swelling or pain. CARDIOVASCULAR: Denies palpitations or chest pain. RESPIRATORY: Denies cough or wheeze. GASTROINTESTINAL: Complains of nausea, denies vomiting. Complained of abdominal pain. MUSCULOSKELETAL: Denies arthralgia, myalgias. NEUROLOGIC: Denies numbness or tingling. GENITOURINARY: Denies dysuria, hematuria. ENDOCRINE: Denies polyuria, polydipsia. PHYSICAL EXAMINATION GENERAL: The patient in no acute distress. VITAL SIGNS: Temperature 97.5, pulse 81, respirations 20, blood pressure 119/66, saturation 98%. HEENT: PERRLA. No scleral icterus. NECK: Supple. Trachea midline. LUNGS: Clear to auscultation, bilateral expansion. HEART: S1-S2 regular rhythm. ABDOMEN: Soft, positive tenderness to palpation in the epigastric and right upper quadrant. Well-healed surgical scars. EXTREMITIES: Warm, well-perfused. Moving all extremities. NEUROLOGIC: GCS 15. 5/5 motor all extremities. INTEGUMENT: No obvious masses or lesions PSYCHIATRIC: Good insight, good judgment. LABORATORY Diagnostic data, WBC is 11.7, hemoglobin 12.8, hematocrit 38.8, platelet count 343. Sodium 140, potassium 3.6, chloride 106, BUN 6, creatinine 0.62, AST 80, ALT 105, T bili 0.6, lipase 10,516. IMAGING CT reviewed by myself non contrasted image, multiple kidney stones, gallbladder stones, distended gallbladder. Ultrasound reviewed, numerous non-obstructing bilateral kidney stones. Numerous gallstones, thickened gallbladder wall 7 mm trace. cholecystic fluid. ASSESSMENT The patient is a 36-year-old with complaints of epigastric and right upper quadrant pain consistent with gallstone pancreatitis. PLAN After full clinical, radiologic, laboratory workup the patient with above-named issues including gallstone pancreatitis. At this point recommend IV fluids, pain control, bowel rest. Trend labs. GI has already been consulted and the MRCP is already ordered and pending. We will follow up on MRCP. If this is positive, recommend GI to do the ERCP. If this is negative we will plan for laparoscopic cholecystectomy prior to discharge. If it is positive, we will clear stones first and then laparoscopic cholecystectomy will be following. We will continue to follow with you. Thank you for the consultation. MD AURY Victoria/ANJEL /4:10 PM /5:39 PM
[2016-10-31] MEDS: diphenhydrAMINE HCL 25 MG CAP PO PRN (20:14)
[2016-10-31] MEDS: PANTOPRAZOLE SODIUM 40 MG VIAL IV PUSH SCH (20:14)
[2016-10-31] MEDS: DOCUSATE SODIUM 50 MG/SENNA 8.6 MG TAB PO PRN (20:35)
[2016-11-01] VITALS (7 sets, daily range): BP systolic 110–159; BP diastolic 59–87; PULSE 69–91; RESP 16–22; TEMP 98.3–99.4; O2SAT 90–100
[2016-11-01] MEDS: ACETAMINOPHEN/HYDROcodone 325 MG/5 MG TAB PO PRN ×6 (00:56→23:06)
[2016-11-01] MEDS: metroNIDAZOLE 500 MG INJ 100 ML IV SCH ×3 (05:06→21:05)
[2016-11-01] MEDS: SODIUM CHLOR 0.9% 1000 ML INJ 1,000 ML IV SCH ×4 (05:08→23:19)
--- NOTE | 2016-11-01 06:56 | MP ---
cc: BRENDA JENNINGS MD DATE OF SURGERY 10/31/2016 PREOPERATIVE DIAGNOSIS Gallstone pancreatitis POSTOPERATIVE DIAGNOSIS Gallstone pancreatitis PROCEDURE PERFORMED Laparoscopic cholecystectomy. SURGEON Dr. Brenda Jennings LIVE IN CAREGIVER See OR sheet ANESTHESIA GETA. IV FLUIDS 800 cc ESTIMATED BLOOD LOSS 5 cc. DRAINS None. COMPLICATIONS None. WOUND CLASSIFICATION Clean, contaminated. SPECIMEN Gallbladder. INDICATION The patient is a 36-year-old female who presents with epigastric and right upper quadrant pain. She underwent evaluation including CT scan and labs which finds lipase over 10,000, CT showing multiple gallstones. MRCP done with common bile duct stones and gallstones. The patient underwent ERCP with extraction of stones and was improving. The patient did have a mild increase in her lipase; however, her pain was improving. Decision was made for laparoscopic cholecystectomy. Discussed with the patient in detail. DETAILS OF PROCEDURE The patient was taken to the operating room suite, placed in supine position. He was prepped and draped in the usual sterile fashion after induction of general endotracheal anesthesia. A brief time-out was done stating correct patient, procedure and surgical site and we were all in agreement with this. Attention was first directed to the umbilicus. A stab jerod incision was made, the Veress needle placed. This was done with an 11-blade. Saline drop test confirmed placement without ability to aspirate effectively and irrigate, therefore decision was made to do a left upper quadrant small stab jerod incision, local anesthetic injected, the Veress needle placed. Confirmed placement as intraabdominal with saline drop test. Abdomen insufflated to 15-mm pneumoperitoneum. On cursory inspection there was noted to be multiple adhesions to the umbilicus. This was omentum only and was taken down with electro Bovie cautery and Endoshears. Next, the 5-mm was placed at the umbilicus under direct visualization. Next, three other ports were placed, epigastric 10-mm, followed by two 5-mm right subcostal midclavicular and anterior axillary line ports. The patient was then placed in reverse Trendelenburg and planed to the left. The gallbladder fundus was grasped, the gallbladder noted to be relatively distended. It was retracted cephalad. Adhesions were taken down from the gallbladder. [place] electro Bovie cautery was used to dissect out the cystic duct and cystic artery. These were identified. These were noted to go to the gallbladder. Two clips were placed proximal and one distal on both the cystic duct and cystic artery and transected with endoshears. The gallbladder was removed from gallbladder bed using electro Bovie cautery. Suction irrigation was used for minimal bile spillage. The gallbladder was placed in the gallbladder bed and removed through the epigastric port. The gallbladder fossa was inspected and noted to be hemostatic with suction irrigation in the right upper quadrant. No evidence of bile leaking. The ports were removed after deflation of pneumoperitoneum. The epigastric port was closed with a 0 Vicryl followed by 4-0 Monocryl to subcuticular incisions. At all incisions local anesthetic injected as well. Sterile dressings were placed including Mastisol and Steri-Strips. The patient tolerated the procedure well. There was no intraoperative complication. The patient was extubated and taken stable to the PACU. MD AURY Victoria/MARLENI /4:04 PM /6:38 AM
[2016-11-01 08:32] LABS: AUTOMATED NEUTROPHIL # 7.2 TH/MM3 (1.8-7.7); BASOPHIL % 0.2 % (0.0-2.0); HEMO FLAGS DIFF FINAL; LYMPH % 26.1 % (9.0-44.0); LYMPHOCYTE # 2.8 TH/MM3 (1.0-4.8); MEAN CELL VOLUME 81.1 FL (80.0-100.0); MEAN CORPUSCULAR HEMOGLOBIN 26.8 PG (27.0-34.0); MONO % 5.6 % (0.0-8.0); NEUT % 68.1 % (16.0-70.0); PLATELET COUNT 343 TH/MM3 (150-450); RED BLOOD COUNT 4.56 MIL/MM3 (4.00-5.30); RED CELL DISTRIBUTION WIDTH 14.3 % (11.6-17.2); WHITE BLOOD COUNT 10.5 TH/MM3 (4.0-11.0)
[2016-11-01] MEDS: SODIUM CHLORIDE 0.9% FLUSH 10 ML FLUSH IV FLUSH SCH ×2 (08:54→21:00)
[2016-11-01] MEDS: ENOXAPARIN SODIUM 40 MG/0.4 ML SYRINGE SQ SCH (08:54)
[2016-11-01 10:26] LABS: BACTERIA, URINE RARE /hpf; BLOOD, URINE NEG (NEG); COMMENT (UR) CULT NOT INDICATED; CULTURE IF INDICATED CULT NOT INDICATED; GLUCOSE,URINE NEG (NEG); KETONE, URINE NEG (NEG); NITRITE,URINE NEG (NEG); PH, URINE 6.5 (5.0-8.5); SQUAMOUS EPITHELIAL CELL URINE 2 /hpf (0-5); URINE COLOR YELLOW (YELLW/STRAW)
[2016-11-01 13:00] LABS: ANION GAP 11 MEQ/L (5-15); AST (GOT) 70 U/L (15-37); BICARBONATE 22.6 MEQ/L (21.0-32.0); BLOOD UREA NITROGEN 6 MG/DL (7-18); CHLORIDE 106 MEQ/L (98-107); POTASSIUM 3.4 MEQ/L (3.5-5.1); SODIUM (NA) 140 MEQ/L (136-145)
[2016-11-01 13:02] LABS: ALKALINE PHOSPHATASE 118 U/L (45-117); ALT (GPT) 107 U/L (10-53); GLOMERULAR FILTRATION RATE 123 ML/MIN (>89); TOTAL BILIRUBIN ADULT 0.5 MG/DL (0.2-1.0)
[2016-11-01] MEDS: DOCUSATE SODIUM 50 MG/SENNA 8.6 MG TAB PO PRN (15:46)
--- NOTE | 2016-11-01 16:19 | HHI.PR ---
Subjective Subjective Notes no acute issues, incisional pain Objective Vitals/I&O Vital Signs Date Time Temp Pulse Resp B/P Pulse Ox O2 Delivery O2 Flow Rate FiO2 11/01/16 15:53 99.0 80 21 121/73 98 10/31/16 16:00 Nasal Cannula 2 10/31/16 10:08 21 Labs Laboratory Tests Test 11/01/16 11/01/16 07:26 09:30 White Blood Count 10.5 Red Blood Count 4.56 Hemoglobin 12.2 Hematocrit 37.0 Mean Corpuscular Volume 81.1 Mean Corpuscular Hemoglobin 26.8 Mean Corpuscular Hemoglobin 33.0 Concent Red Cell Distribution Width 14.3 Platelet Count 343 Mean Platelet Volume 8.1 Neutrophils (%) (Auto) 68.1 Lymphocytes (%) (Auto) 26.1 Monocytes (%) (Auto) 5.6 Eosinophils (%) (Auto) 0.0 Basophils (%) (Auto) 0.2 Neutrophils # (Auto) 7.2 Lymphocytes # (Auto) 2.8 Monocytes # (Auto) 0.6 Eosinophils # (Auto) 0.0 Basophils # (Auto) 0.0 CBC Comment DIFF FINAL Differential Comment Sodium Level 140 Potassium Level 3.4 Chloride Level 106 Carbon Dioxide Level 22.6 Anion Gap 11 Blood Urea Nitrogen 6 Creatinine 0.66 Estimat Glomerular Filtration 123 Rate Random Glucose 85 Calcium Level 8.6 Total Bilirubin 0.5 Aspartate Amino Transf 70 (AST/SGOT) Alanine Aminotransferase 107 (ALT/SGPT) Alkaline Phosphatase 118 Total Protein 6.8 Albumin 3.1 Lipase 417 Urine Color YELLOW Urine Turbidity CLEAR Urine pH 6.5 Urine Specific [place] 1.009 Urine Protein NEG Urine Glucose (UA) NEG Urine Ketones NEG Urine Occult Blood NEG Urine Nitrite NEG Urine Bilirubin NEG Urine Urobilinogen LESS THAN 2.0 Urine Leukocyte Esterase NEG Urine RBC 2 Urine WBC 1 Urine Squamous Epithelial 2 Cells Urine Bacteria RARE Microscopic Urinalysis Comment CULT NOT INDICATED Radiology Last Impressions Cholangiopancreatography MRI 10/28/16 0000 Signed Impressions: Service Date/Time: Friday, October 28, 2016 18:36 - CONCLUSION: 1. Multiple gallstones with some fluid around the gallbladder 2. At least 2 stones in the proximal common duct. Chandana Cortez MD FACR Lower Extremity Ultrasound 10/27/16 0000 Signed Impressions: Service Date/Time: Thursday, October 27, 2016 14:43 - CONCLUSION: Normal examination. Ephraim Mcdaniel MD Abdomen Ultrasound 10/27/16 0000 Signed Impressions: Service Date/Time: Thursday, October 27, 2016 13:20 - CONCLUSION: 1. Numerous nonobstructing bilateral renal calculi. 2. Numerous gallstones with thickened gallbladder wall to 7 mm and trace pericholecystic fluid. Differential diagnosis includes cholecystitis. Sriram Shore MD Abdomen/Pelvis CT 10/26/16 1818 Signed Impressions: Service Date/Time: October 19:16 - CONCLUSION: 1. Bilateral nephrolithiasis as above without evidence of acute obstructive uropathy. There is an 8mm stone in the right renal pelvis which certainly could be irritating the urothelium and/or causing microscopic hematuria. No ureteral calculus demonstrated. Patient has bilateral medullary calcinosis. Ephraim Calderon MD Cardiovascular: Regular Lungs: Clear Abdomen: Other (soft, mild ttp at incisions, epigastric pain better) A/P Problem List: (1) Choledocholithiasis with acute cholecystitis (2) Cholelithiasis (3) Obesity (4) Right upper quadrant abdominal pain (5) Abnormal findings on diagnostic imaging of gallbladder Assessment and Plan concern for acute jane with cholelithiasis and gallstone pancreatitis, sp ercp , s/p lap jane POD 1- Lipase improving PLAN Clears- advance to full diet check and trend lipase await improvement in labs d/c planning likely tomorrow Problem Qualifiers (1) Cholelithiasis: Qualified Code: K80.67 - Calculus of gallbladder and bile duct with acute on chronic cholecystitis, with obstruction Krishna Jennings MD November 01, 2016 16:19
--- NOTE | 2016-11-01 16:59 | HHI.PR ---
Subjective Remarks In bed, says she has more pain. She also complaints of constipation. No nausea or vomiting. Passing gas. No fever or chills. Denies sob, chest pain. Objective Vitals Vital Signs Date Time Temp Pulse Resp B/P Pulse Ox O2 Delivery O2 Flow Rate FiO2 11/01/16 15:53 99.0 80 21 121/73 98 11/01/16 14:36 17 11/01/16 11:31 98.5 90 18 128/81 97 11/01/16 08:00 69 11/01/16 08:00 99.4 74 22 155/67 99 11/01/16 04:00 98.3 76 18 121/68 100 11/01/16 00:00 98.5 89 16 110/59 96 10/31/16 20:00 99.4 90 18 131/78 98 10/31/16 19:00 83 I/O 10/31/16 10/31/16 10/31/16 11/01/16 11/01/16 11/01/16 07:00 15:00 23:00 07:00 15:00 23:00 Intake Total 1260 ml 720 ml Output Total 10 ml Balance 1250 ml 720 ml Intake Oral 360 ml 720 ml IV Total 100 ml Other 800 ml Estimated Blood Loss 10 ml # Voids 4 2 4 # Bowel Movements 0 Result Diagram: 11/01/1672511/01/16725 Imaging Last Impressions GI Procedure 10/30/16 1130 Signed Impressions: Service Date/Time: Sunday, October 30, 2016 13:16 - CONCLUSION: ERCP as above. Ephraim Isaac MD Cholangiopancreatography MRI 10/28/16 0000 Signed Impressions: Service Date/Time: Friday, October 28, 2016 18:36 - CONCLUSION: 1. Multiple gallstones with some fluid around the gallbladder 2. At least 2 stones in the proximal common duct. Chandana Cortez MD FACR Lower Extremity Ultrasound 10/27/16 0000 Signed Impressions: Service Date/Time: Thursday, October 27, 2016 14:43 - CONCLUSION: Normal examination. Ephraim Mcdaniel MD Abdomen Ultrasound 10/27/16 0000 Signed Impressions: Service Date/Time: Thursday, October 27, 2016 13:20 - CONCLUSION: 1. Numerous nonobstructing bilateral renal calculi. 2. Numerous gallstones with thickened gallbladder wall to 7 mm and trace pericholecystic fluid. Differential diagnosis includes cholecystitis. Sriram Shore MD Abdomen/Pelvis CT 10/26/161817 Signed Impressions: Service Date/Time: October 19:16 - CONCLUSION: 1. Bilateral nephrolithiasis as above without evidence of acute obstructive uropathy. There is an 8mm stone in the right renal pelvis which certainly could be irritating the urothelium and/or causing microscopic hematuria. No ureteral calculus demonstrated. Patient has bilateral medullary calcinosis. Ephraim Calderon MD Objective Remarks GENERAL: This is a very pleasant 36 yo AA female, well-nourished, well- developed patient, in no apparent distress. CARDIOVASCULAR: Regular rate and regular rhythm without murmurs, gallops, or rubs. RESPIRATORY: Clear to auscultation. Breath sounds equal bilaterally. No wheezes , rales, or rhonchi. GASTROINTESTINAL: Abdomen soft, mild epigastric tenderness, nondistended. Normal , active bowel sounds MUSCULOSKELETAL: Extremities without clubbing, cyanosis, or edema. NEURO: Alert & Oriented x4 to person, place, time, situation. Moves all ext x4 Procedures none A/P Problem List: (1) Pancreatitis ICD Code: K85.90 Status: Acute Assessment and Plan Acute pancreatitis NPO as plan for ERCP- continue IV fluid along with pain control and antiemetics as needed. Acute cholecystitis/ cholelithiasis MRCP with proximal common bile duct stone continue Flagyl ( patient has allergy to levaquin and Rocephin)- S/p ERCP 10/30. surgery evaluation appreciated S/p cholecystectomy Constipation. Stoney softeners. laxatives as need. Swelling/pain to both legs: venous doppler negative for DVT. Improved. Nephrolithiasis: continue with pain control- f/u with as outpatient ( previously d/w ) Hypertension: resumed home meds. Monitor VS -DVT prophylaxis with lovenox DC plan: Likely DC tomorrow if cleared by surg. Problem Qualifiers (1) Pancreatitis: Qualified Code: K85.90 - Acute pancreatitis, unspecified complication status, unspecified pancreatitis type Breann Aldrich MD November 01, 2016 16:59
[2016-11-01] MEDS ORDERED: LACTULOSE SYRUP 20 GM/30 ML CUP PO ONE (17:15)
[2016-11-01] MEDS ORDERED: POTASSIUM CHLORIDE 10 MEQ CONTROLLED RELEASE TAB PO ONE (17:15)
[2016-11-01] MEDS ORDERED: LACTULOSE SYRUP 20 GM/30 ML CUP PO PRN (17:15)
[2016-11-01] MEDS: HYDROmorphone HCL PF 1 MG/ML VIAL IV PUSH PRN (19:15)
[2016-11-01] MEDS: PANTOPRAZOLE SODIUM 40 MG VIAL IV PUSH SCH (21:05)
[2016-11-02 04:00] VITALS: BP 127/78; PULSE 91; RESP 18; TEMP 99.5; O2SAT 95
[2016-11-02] MEDS: ACETAMINOPHEN/HYDROcodone 325 MG/5 MG TAB PO PRN ×2 (05:20→12:31)
[2016-11-02] MEDS: metroNIDAZOLE 500 MG INJ 100 ML IV SCH ×2 (05:21→14:31)
[2016-11-02] MEDS: SODIUM CHLOR 0.9% 1000 ML INJ 1,000 ML IV SCH ×2 (07:19→15:19)
[2016-11-02 08:00] VITALS: BP 127/81; PULSE 85; PULSE 93; RESP 18; TEMP 99.3; O2SAT 95
[2016-11-02 08:41] LABS: ALKALINE PHOSPHATASE 97 U/L (45-117); ALT (GPT) 77 U/L (10-53); ANION GAP 6 MEQ/L (5-15); AST (GOT) 21 U/L (15-37); BICARBONATE 27.9 MEQ/L (21.0-32.0); BLOOD UREA NITROGEN 2 MG/DL (7-18); CHLORIDE 104 MEQ/L (98-107); GLOMERULAR FILTRATION RATE 161 ML/MIN (>89); POTASSIUM 3.1 MEQ/L (3.5-5.1); SODIUM (NA) 138 MEQ/L (136-145); TOTAL BILIRUBIN ADULT 0.4 MG/DL (0.2-1.0)
[2016-11-02] MEDS: HYDROmorphone HCL PF 1 MG/ML VIAL IV PUSH PRN ×2 (08:43→15:56)
[2016-11-02] MEDS: ENOXAPARIN SODIUM 40 MG/0.4 ML SYRINGE SQ SCH (08:47)
[2016-11-02] MEDS: SODIUM CHLORIDE 0.9% FLUSH 10 ML FLUSH IV FLUSH SCH (08:47)
[2016-11-02] MEDS ORDERED: POTASSIUM CHLORIDE 20 MEQ CONTROLLED RELEASE TAB PO ONE (09:15)
--- NOTE | 2016-11-02 11:27 | HHI.PR ---
Subjective Subjective Notes Resting in bed Pain overnight in abdomen Objective Vitals/I&O Vital Signs Date Time Temp Pulse Resp B/P Pulse Ox O2 Delivery O2 Flow Rate FiO2 11/02/16 08:00 99.3 85 18 127/81 95 10/31/16 16:00 Nasal Cannula 2 10/31/16 10:08 21 Labs Laboratory Tests Test 11/02/16 07:13 Sodium Level 138 Potassium Level 3.1 Chloride Level 104 Carbon Dioxide Level 27.9 Anion Gap 6 Blood Urea Nitrogen 2 Creatinine 0.52 Estimat Glomerular Filtration 161 Rate Random Glucose 89 Calcium Level 7.6 Total Bilirubin 0.4 Aspartate Amino Transf 21 (AST/SGOT) Alanine Aminotransferase 77 (ALT/SGPT) Alkaline Phosphatase 97 Total Protein 6.5 Albumin 2.9 Lipase 214 Radiology Last Impressions Cholangiopancreatography MRI 10/28/16 0000 Signed Impressions: Service Date/Time: Friday, October 28, 2016 18:36 - CONCLUSION: 1. Multiple gallstones with some fluid around the gallbladder 2. At least 2 stones in the proximal common duct. Chandana Cortez MD FACR Lower Extremity Ultrasound 10/27/16 0000 Signed Impressions: Service Date/Time: Thursday, October 27, 2016 14:43 - CONCLUSION: Normal examination. Ephraim Mcdaniel MD Abdomen Ultrasound 10/27/16 0000 Signed Impressions: Service Date/Time: Thursday, October 27, 2016 13:20 - CONCLUSION: 1. Numerous nonobstructing bilateral renal calculi. 2. Numerous gallstones with thickened gallbladder wall to 7 mm and trace pericholecystic fluid. Differential diagnosis includes cholecystitis. Sriram Shore MD Abdomen/Pelvis CT 10/26/16 1818 Signed Impressions: Service Date/Time: October 19:16 - CONCLUSION: 1. Bilateral nephrolithiasis as above without evidence of acute obstructive uropathy. There is an 8mm stone in the right renal pelvis which certainly could be irritating the urothelium and/or causing microscopic hematuria. No ureteral calculus demonstrated. Patient has bilateral medullary calcinosis. Ephraim Calderon MD Cardiovascular: Regular Lungs: Clear Abdomen: Non-distended, Other (lap sites c/d/i; umbilicus site with minimal bloody drainage ), Post-op tenderness Extremities: No edema A/P Problem List: (1) Choledocholithiasis with acute cholecystitis (2) Cholelithiasis (3) Obesity (4) Right upper quadrant abdominal pain (5) Abnormal findings on diagnostic imaging of gallbladder Assessment and Plan 36 year old female with GS pancreatitis -POD2 lap jane -Reviewed labs; trending down -Advance to heart healthy diet -+BM -GS clear for DC if pain controlled; follow up with Dr. Jennings in about a week Attending Statement patient seen at bedside s/p lap jane doing well flank pain- planning for lithotripsy Attestation The exam, history, and the medical decision-making described in the above note were completed with the assistance of the mid-level provider. I reviewed and agree with the findings presented. I attest that I had a [id number] encounter with the patient on the same day, and personally performed and documented my assessment and findings in the medical record. Problem Qualifiers (1) Cholelithiasis: Qualified Code: K80.67 - Calculus of gallbladder and bile duct with acute on chronic cholecystitis, with obstruction Linette Peterson Nov 02, 2016 11:27 Krishna Jennings MD Nov 11, 2016 22:13
[2016-11-02 12:00] VITALS: BP 135/86; PULSE 85; RESP 18; TEMP 98.8; O2SAT 98
--- NOTE | 2016-11-02 13:09 | HHI.PR ---
Subjective Remarks Feels improved, however still with pain. Had a BM yesterday. NO n/v/d/c. Will advance diet per surgery. She denies sob or chest pain. Objective Vitals Vital Signs Date Time Temp Pulse Resp B/P Pulse Ox O2 Delivery O2 Flow Rate FiO2 11/02/16 12:00 98.8 85 18 135/86 98 11/02/16 09:13 19 11/02/16 08:00 99.3 85 18 127/81 95 11/02/16 08:00 93 11/02/16 04:00 99.5 91 18 127/78 95 11/01/16 23:00 98.3 91 20 150/71 98 11/01/16 19:30 99.1 90 18 159/87 90 11/01/16 18:19 18 11/01/16 15:53 99.0 80 21 121/73 98 I/O 11/01/16 11/01/16 11/01/16 11/02/16 11/02/16 11/02/16 07:00 15:00 23:00 07:00 15:00 23:00 Intake Total 720 ml 1350 ml 1000 ml Output Total 950 ml Balance 720 ml 1350 ml 50 ml Intake Oral 720 ml 1350 ml IV Total 1000 ml Output Urine Total 950 ml # Voids 4 5 Result Diagram: 11/01/16 0726 11/02/16 0713 Imaging Last Impressions GI Procedure 10/30/16 1130 Signed Impressions: Service Date/Time: Sunday, October 30, 2016 13:16 - CONCLUSION: ERCP as above. Ephraim Isaac MD Cholangiopancreatography MRI 10/28/16 0000 Signed Impressions: Service Date/Time: Friday, October 28, 2016 18:36 - CONCLUSION: 1. Multiple gallstones with some fluid around the gallbladder 2. At least 2 stones in the proximal common duct. Chandana Cortez MD FACR Lower Extremity Ultrasound 10/27/16 0000 Signed Impressions: Service Date/Time: Thursday, October 27, 2016 14:43 - CONCLUSION: Normal examination. Ephraim Mcdaniel MD Abdomen Ultrasound 10/27/16 0000 Signed Impressions: Service Date/Time: Thursday, October 27, 2016 13:20 - CONCLUSION: 1. Numerous nonobstructing bilateral renal calculi. 2. Numerous gallstones with thickened gallbladder wall to 7 mm and trace pericholecystic fluid. Differential diagnosis includes cholecystitis. Sriram Shore MD Abdomen/Pelvis CT 10/26/161817 Signed Impressions: Service Date/Time: October 19:16 - CONCLUSION: 1. Bilateral nephrolithiasis as above without evidence of acute obstructive uropathy. There is an 8mm stone in the right renal pelvis which certainly could be irritating the urothelium and/or causing microscopic hematuria. No ureteral calculus demonstrated. Patient has bilateral medullary calcinosis. Ephraim Calderon MD Objective Remarks GENERAL: This is a very pleasant 36 yo AA female, well-nourished, well- developed patient, in no apparent distress. CARDIOVASCULAR: Regular rate and regular rhythm without murmurs, gallops, or rubs. RESPIRATORY: Clear to auscultation. Breath sounds equal bilaterally. No wheezes , rales, or rhonchi. GASTROINTESTINAL: Abdomen soft, mild epigastric tenderness, nondistended. Normal , active bowel sounds MUSCULOSKELETAL: Extremities without clubbing, cyanosis, or edema. NEURO: Alert & Oriented x4 to person, place, time, situation. Moves all ext x4 Procedures none A/P Problem List: (1) Pancreatitis ICD Code: K85.90 Status: Acute Assessment and Plan Acute pancreatitis Had ERCP On continue IV fluid along with pain control and antiemetics as needed. Advance diet Acute cholecystitis/ cholelithiasis MRCP with proximal common bile duct stone continue Flagyl ( patient has allergy to levaquin and Rocephin)- S/p ERCP 10/30. surgery evaluation appreciated S/p cholecystectomy Constipation. Stoney softeners. laxatives as need. Swelling/pain to both legs: venous doppler negative for DVT. Improved. Nephrolithiasis: continue with pain control- f/u with as outpatient ( previously d/w ) Hypertension: resumed home meds. Monitor VS -DVT prophylaxis with lovenox DC plan: Likely DC tomorrow later today if labs continue to improve, tolerates diet and pain improved or DC tomorrow per surgeon. Problem Qualifiers (1) Pancreatitis: Qualified Code: K85.90 - Acute pancreatitis, unspecified complication status, unspecified pancreatitis type Breann Aldrich MD Nov 02, 2016 13:09
[2016-11-02] MEDS ORDERED: NORC5TAB PO (13:11)
[2016-11-02] MEDS ORDERED: SENN1TAB PO (13:11)
--- NOTE | 2016-11-02 13:12 | HHI.DS ---
Discharge Summary Admission Date October 26, 2016 at 21:40 Discharge Date: Nov 02, 2016 Admitting Diagnosis Acute Pancreatitis; nephrolithiasis (1) Pancreatitis ICD Code: K85.90 Diagnosis: Principal Procedures ERCP Laparoscopic cholecystectomy 11/01/[address] Anel Jennings Brief History - From Admission patient is a 36 y/o female with history of nephrolithiasis who presented to ER with abdominal pain. she says that the pain started three days ago. pain is epigastric in location and moderate to severe in intensity. the pain is worse with eating. the pain was associated with nausea, emesis for the past three days and some loose BM's yesterday. she had some chills but no fever. she's also complaining of some swelling and pain to both legs, more on the left side which started two weeks ago.she's being followed up by and is supposed to have the surgery for the right kidney stone next month. CBC/BMP: 11/01/16 0726 11/02/16 0713 Significant Findings Laboratory Tests Test 10/30/16 10/31/16 10/31/16 11/01/16 15:04 10:31 11:37 07:26 Mean Corpuscular Hemoglobin 26.2 PG 26.4 PG 26.8 PG (27.0-34.0) (27.0-34.0) (27.0-34.0) Neutrophils (%) (Auto) 76.7 % (16.0-70.0) Neutrophils # (Auto) 7.9 TH/MM3 8.4 TH/MM3 (1.8-7.7) (1.8-7.7) Calcium Level 8.1 MG/DL 8.4 MG/DL (8.5-10.1) (8.5-10.1) Lipase 437 U/L 1001 U/L 417 U/L (73-393) (73-393) (73-393) White Blood Count 12.4 TH/MM3 (4.0-11.0) Blood Urea Nitrogen 5 MG/DL (7-18) 6 MG/DL (7-18) Potassium Level 3.4 MEQ/L (3.5-5.1) Aspartate Amino Transf 70 U/L (15-37) (AST/SGOT) Alanine Aminotransferase 107 U/L (10-53) (ALT/SGPT) Alkaline Phosphatase 118 U/L (45-117) Albumin 3.1 GM/DL (3.4-5.0) Test 11/01/16 11/02/16 09:30 07:13 Urine Bacteria RARE /hpf (NONE) Potassium Level 3.1 MEQ/L (3.5-5.1) Blood Urea Nitrogen 2 MG/DL (7-18) Calcium Level 7.6 MG/DL (8.5-10.1) Alanine Aminotransferase 77 U/L (10-53) (ALT/SGPT) Albumin 2.9 GM/DL (3.4-5.0) Imaging Last Impressions GI Procedure 10/30/16 1130 Signed Impressions: Service Date/Time: Sunday, October 30, 2016 13:16 - CONCLUSION: ERCP as above. Ephraim Isaac MD Cholangiopancreatography MRI 10/28/16 0000 Signed Impressions: Service Date/Time: Friday, October 28, 2016 18:36 - CONCLUSION: 1. Multiple gallstones with some fluid around the gallbladder 2. At least 2 stones in the proximal common duct. Chandana Cortez MD FACR Lower Extremity Ultrasound 10/27/16 0000 Signed Impressions: Service Date/Time: Thursday, October 27, 2016 14:43 - CONCLUSION: Normal examination. Ephraim Mcdaniel MD Abdomen Ultrasound 10/27/16 0000 Signed Impressions: Service Date/Time: Thursday, October 27, 2016 13:20 - CONCLUSION: 1. Numerous nonobstructing bilateral renal calculi. 2. Numerous gallstones with thickened gallbladder wall to 7 mm and trace pericholecystic fluid. Differential diagnosis includes cholecystitis. Sriram Shore MD Abdomen/Pelvis CT 10/26/16 1818 Signed Impressions: Service Date/Time: October 19:16 - CONCLUSION: 1. Bilateral nephrolithiasis as above without evidence of acute obstructive uropathy. There is an 8mm stone in the right renal pelvis which certainly could be irritating the urothelium and/or causing microscopic hematuria. No ureteral calculus demonstrated. Patient has bilateral medullary calcinosis. Ephraim Calderon MD PE at Discharge GENERAL: This is a very pleasant 36 yo AA female, well-nourished, well- developed patient, in no apparent distress. CARDIOVASCULAR: Regular rate and regular rhythm without murmurs, gallops, or rubs. RESPIRATORY: Clear to auscultation. Breath sounds equal bilaterally. No wheezes , rales, or rhonchi. GASTROINTESTINAL: Abdomen soft, mild epigastric tenderness, nondistended. Normal , active bowel sounds MUSCULOSKELETAL: Extremities without clubbing, cyanosis, or edema. NEURO: Alert & Oriented x4 to person, place, time, situation. Moves all ext x4 Hospital Course Acute pancreatitis Had ERCP Received IV fluid along with pain control and antiemetics as needed. Advance diet Acute cholecystitis/ cholelithiasis MRCP with proximal common bile duct stone continue Flagyl ( patient has allergy to levaquin and Rocephin)- S/p ERCP 10/30. surgery evaluation appreciated S/p cholecystectomy , improved. Constipation. Stoney softeners. laxatives as need. Swelling/pain to both legs: venous doppler negative for DVT. Improved. Nephrolithiasis: continue with pain control- f/u with as outpatient ( previously d/w ) Hypertension: resumed home meds. Monitor VS -DVT prophylaxis with lovenox Improved, DC home to follow up as OP with PCP and consultants. Pt Condition on Discharge: Stable Discharge Disposition: Discharge Home Discharge Time: > 30 minutes Discharge Instructions DIET: Follow Instructions for: Heart Healthy Diet Activities you can perform: Regular-No Restrictions Follow up Referrals: PCP Follow-up - 2-3 Days with Constantin Montemayor MD Surgical - 1 Week with Krishna Jennings MD New Medications: Hydrocodone-Acetaminophen ([place]) 5-325 mg Tab 1 TAB PO Q6H PRN PAIN #20 Ref 0 TAB Sennosides-Docusate Sodium (Senna Plus 8.6-50 mg) 1 Tab Tab 2 TAB PO BID PRN constipation #30 TAB Continued Medications: Albuterol 18 GM Inh (Ventolin Hfa 18 GM Inh) 90 Mcg/Act Aer 2 PUFF INH Q4H PRN SHORTNESS OF BREATH #1 Ref 0 INHALER Amlodipine (Norvasc) 10 Mg Tab 10 MG PO DAILY Blood Pressure Management #30 Ref 0 TAB Discontinued Medications: Naproxen (Naprosyn) 500 Mg Tab 500 MG PO Q8HR Pain #20 Ref 0 TAB Breann Aldrich MD Nov 02, 2016 13:11
[2016-11-02] MEDS ORDERED: POTASSIUM CHLORIDE 10 MEQ CAP PO ONE (13:15)
[2016-11-02] MEDS: ACETAMINOPHEN 325 MG TAB PO PRN (15:56)
[2016-11-02] MEDS: DOCUSATE SODIUM 50 MG/SENNA 8.6 MG TAB PO PRN (15:56)
[2016-11-02 16:00] VITALS: BP 133/83; PULSE 92; RESP 20; TEMP 99.7; O2SAT 97
== END 2016-11-02 20:18 | disposition home or self-care (01) | DRG 418 ==
LOC: PHED 17:47 → PHEDA 21:40 → PH3A 10-27 01:05 → N05B 10-29 13:37
PROVIDERS: ADMIT Hospitalist; ATTEND Hospitalist
PROC: 0FJB8ZZ Inspection of Hepatobiliary Duct, Via Natural or Artificial Opening Endoscopic (ICD-10-PCS; 2016-10-30)
PROC: 0FT44ZZ Resection of Gallbladder, Percutaneous Endoscopic Approach (ICD-10-PCS; principal; 2016-10-31 13:30)
DX: K85.10 Biliary acute pancreatitis without necrosis or infection (principal); K80.13 Calculus of gallbladder with acute and chronic cholecystitis with obstruction; I10 Essential (primary) hypertension; N20.0 Calculus of kidney; E78.5 Hyperlipidemia, unspecified; Z88.7 Allergy status to serum and vaccine; Z88.6 Allergy status to analgesic agent; Z88.1 Allergy status to other antibiotic agents; Z91.041 Radiographic dye allergy status; Z88.5 Allergy status to narcotic agent; Z91.013 Allergy to seafood; J45.909 Unspecified asthma, uncomplicated; E78.00 Pure hypercholesterolemia, unspecified; F41.9 Anxiety disorder, unspecified; K59.00 Constipation, unspecified
CPT/HCPCS: 74176; 74181; 74330; 76377; 76700; 76937; 80053; 81001; 82784; 82787; 82948; 83690; 84478; 85025; 85379; 88304; 93970; 94664; 96361; 96374; 96376; C1769; C9113; J1170; J1200; J1650; J1885; J1956; J2175; J2250; J2405; J2550; J2710; J3010; J7030; J7613; Q9967

== ENCOUNTER → 2016-11-23 | Outpatient (CLI) | payer OTHER ==
[~2016-11-23] MED LIST changes: -HYDR-3533 PO; -NAPR500 PO; +NORC5TAB PO; +SENN1TAB PO; -ZOFR4TAB3 SL
[2016-11-23 08:02] LABS: AUTOMATED NEUTROPHIL # 3.1 TH/MM3 (1.8-7.7); BASOPHIL % 0.4 % (0.0-2.0); EOSINOPHIL # 0.3 TH/MM3 (0-0.4); EOSINOPHIL % 3.9 % (0.0-4.0); HEMATOCRIT 37.8 % (35.0-46.0); HEMO FLAGS DIFF FINAL; LYMPH % 45.9 % (9.0-44.0); LYMPHOCYTE # 3.3 TH/MM3 (1.0-4.8); MEAN CELL VOLUME 80.3 FL (80.0-100.0); MEAN CORPUSCULAR HEMOGLOBIN 26.9 PG (27.0-34.0); MEAN CORPUSCULAR HGB CONC 33.5 % (32.0-36.0); MONO % 5.8 % (0.0-8.0); PLATELET COUNT 367 TH/MM3 (150-450); RED BLOOD COUNT 4.71 MIL/MM3 (4.00-5.30); RED CELL DISTRIBUTION WIDTH 14.4 % (11.6-17.2); WHITE BLOOD COUNT 7.1 TH/MM3 (4.0-11.0)
[2016-11-23 08:23] LABS: ALT (GPT) 31 U/L (10-53); ANION GAP 9 MEQ/L (5-15); AST (GOT) 11 U/L (15-37); BICARBONATE 23.5 MEQ/L (21.0-32.0); BLOOD UREA NITROGEN 11 MG/DL (7-18); CHLORIDE 107 MEQ/L (98-107); GLOMERULAR FILTRATION RATE 121 ML/MIN (>89); GLUCOSE,FASTING 85 MG/DL (74-99); POTASSIUM 3.6 MEQ/L (3.5-5.1); SODIUM (NA) 139 MEQ/L (136-145)
[2016-11-23 08:26] LABS: ALKALINE PHOSPHATASE 84 U/L (45-117); TOTAL BILIRUBIN ADULT 0.5 MG/DL (0.2-1.0)
== END ==
LOC: CLAB 07:21
PROVIDERS: ATTEND Family Medicine
DX: K85.12 Biliary acute pancreatitis with infected necrosis (principal); N20.0 Calculus of kidney; Z68.38 Body mass index [BMI] 38.0-38.9, adult
CPT/HCPCS: 36415; 80053; 83690; 85025

== ENCOUNTER → 2016-12-01 | Outpatient (CLI) | payer OTHER ==
[2016-12-01 11:33] LABS: HEMATOCRIT 39.6 % (35.0-46.0); MEAN CELL VOLUME 80.7 FL (80.0-100.0); MEAN CORPUSCULAR HEMOGLOBIN 26.6 PG (27.0-34.0); PLATELET COUNT 330 TH/MM3 (150-450); RED BLOOD COUNT 4.91 MIL/MM3 (4.00-5.30); RED CELL DISTRIBUTION WIDTH 14.6 % (11.6-17.2); REVIEW FLAG FINAL; WHITE BLOOD COUNT 8.3 TH/MM3 (4.0-11.0)
[2016-12-01 11:58] LABS: BICARBONATE 26.4 MEQ/L (21.0-32.0); POTASSIUM 3.5 MEQ/L (3.5-5.1)
== END ==
LOC: CLAB 11:11
PROVIDERS: ATTEND Urology
DX: R31.9 Hematuria, unspecified (principal)
CPT/HCPCS: 36415; 80048; 85027

== ENCOUNTER → 2016-12-06 | Day surgery (SDC) | payer OTHER ==
[~2016-12-06] VITALS: Ht 154.9 cm; Wt 101.0 kg
[~2016-12-06] MED LIST changes: +CHLORHEXIDINE GLUCONATE 2 % 1 PACK (2 CLOTHS) TOPICAL PRN; +CIPROFLOXACIN 400 MG PREMIX 200 ML ONE; +DO NOT ADM ANY ANTICOAGULANT DRUGS PRN; +FAMOTIDINE 20 MG/2 ML VIAL ONE; +INSULIN HUMAN REGULAR 1,000 UNITS/10 ML VIAL SQ PRN; +LACTATED RINGER'S 1000 ML IV PRN; +METOPROLOL TARTRATE 25 MG TAB PO PRN; +MIDAZOLAM HCL 2 MG/2 ML VIAL ONE; +ONDANSETRON HCL 4 MG/2 ML VIAL IV PUSH ONE; +PROPOFOL 200 MG/20 ML AMP IV ONE; +SODIUM CHLORID 0.9% 500 ML IV PRN; +ceFAZolin 2 GM PREMIX 50 ML IV SCH
[2016-12-06 06:24] VITALS: BP 128/84; PULSE 80; RESP 16; TEMP 98; O2SAT 100
[2016-12-06 06:56] LABS: INTERNATIONAL NORMALIZED RATIO 0.9 RATIO
[2016-12-06 10:35] VITALS: BP 149/89; PULSE 77; RESP 18; TEMP 98.9; O2SAT 97
--- NOTE | 2016-12-07 21:23 | MP ---
cc: ISSAC DE LA CRUZ MD DATE OF SURGERY 12/06/16 PREOPERATIVE DIAGNOSIS Right renal calculi POSTOPERATIVE DIAGNOSIS Right renal calculi PROCEDURE PERFORMED Right ESWL. SURGEON Uma De La Cruz MD ANESTHESIA General COMPLICATIONS None. PREOPERATIVE ANTIBIOTICS 2 grams IV DRAINS None SPECIMEN None BLOOD LOSS Minimal DISPOSITION Stable to recovery INDICATIONS The patient is 36-year-old -[place]ian female with longstanding history of kidney stones who presents today for treatment of a right 8 mm renal calculus. The patient had a KUB done on December 01 which showed an 8 mm stone over her right and her right kidney. She presents today for treatment of that stone. After risks, benefits and alternatives were explained to patient, the patient would like to proceed. Informed consent was obtained. PROCEDURE IN DETAIL The patient is appropriately identified, brought back to the tube mill operator room and laid supine on the operating table. A proper time-out was performed under direction of anesthesiology. The patient was intubated and induced under general anesthetic. Preop antibiotics in the form of Ancef 2 grams IV was given one hour prior to start of procedure. The patient was then laid supine on the table. A fluoroscopic image was taken and the stone was difficult to see. Using ultrasound guidance, I was able to then visualize the stone. Approximately 2500 shocks were given to the stone and it appeared to fragment into tiny pieces. Following 2500 shocks, this concluded the procedure. The patient was extubated and sent to recovery in stable condition. She will be discharged home with follow up in 10 days with a KUB. Issac De La Cruz MD EMF/ /11:41 AM /9:17 PM
== END | disposition home or self-care (01) ==
LOC: HSDC 05:31
PROVIDERS: ATTEND Urology
DX: N20.0 Calculus of kidney (principal); I10 Essential (primary) hypertension; E78.5 Hyperlipidemia, unspecified; J44.9 Chronic obstructive pulmonary disease, unspecified; Z01.818 Encounter for other preprocedural examination
CPT/HCPCS: 00872; 50590; 85610; J0744; J2250; J2405; J3010; J7120

== ENCOUNTER 2017-03-10 12:17 | Emergency (ER) | payer OTHER ==
[~2017-03-10 12:17] MED LIST changes: -CHLORHEXIDINE GLUCONATE 2 % 1 PACK (2 CLOTHS) TOPICAL PRN; -CIPROFLOXACIN 400 MG PREMIX 200 ML ONE; -DO NOT ADM ANY ANTICOAGULANT DRUGS PRN; -FAMOTIDINE 20 MG/2 ML VIAL ONE; -INSULIN HUMAN REGULAR 1,000 UNITS/10 ML VIAL SQ PRN; -LACTATED RINGER'S 1000 ML IV PRN; -METOPROLOL TARTRATE 25 MG TAB PO PRN; -MIDAZOLAM HCL 2 MG/2 ML VIAL ONE; -NORC5TAB PO; -ONDANSETRON HCL 4 MG/2 ML VIAL IV PUSH ONE; -PROPOFOL 200 MG/20 ML AMP IV ONE; -SENN1TAB PO; -SODIUM CHLORID 0.9% 500 ML IV PRN; -ceFAZolin 2 GM PREMIX 50 ML IV SCH
[2017-03-10 12:30] VITALS: BP 133/97; PULSE 99; RESP 20; TEMP 98.8; O2SAT 98
[2017-03-10] MEDS ORDERED: SODIUM CHLOR 0.9% 1000 ML INJ 1,000 ML IV SCH (12:43)
[2017-03-10] MEDS ORDERED: ONDANSETRON HCL 4 MG/2 ML VIAL IVP ONE (12:45)
[2017-03-10] MEDS ORDERED: HYDROmorphone HCL PF 1 MG/ML VIAL IV PUSH ONE (12:45)
[2017-03-10] MEDS ORDERED: SODIUM CHLORIDE 0.9% FLUSH 10 ML FLUSH IV FLUSH PRN (12:45)
[2017-03-10 13:06] LABS: AUTOMATED NEUTROPHIL # 4.1 TH/MM3 (1.8-7.7); BASOPHIL # 0.1 TH/MM3 (0-0.2); BASOPHIL % 0.7 % (0.0-2.0); EOSINOPHIL # 0.1 TH/MM3 (0-0.4); EOSINOPHIL % 1.9 % (0.0-4.0); HEMATOCRIT 39.6 % (35.0-46.0); HEMO FLAGS DIFF FINAL; LYMPH % 36.4 % (9.0-44.0); LYMPHOCYTE # 2.7 TH/MM3 (1.0-4.8); MEAN CELL VOLUME 80.7 FL (80.0-100.0); MEAN CORPUSCULAR HEMOGLOBIN 26.5 PG (27.0-34.0); MEAN CORPUSCULAR HGB CONC 32.9 % (32.0-36.0); PLATELET COUNT 413 TH/MM3 (150-450); RED BLOOD COUNT 4.91 MIL/MM3 (4.00-5.30); RED CELL DISTRIBUTION WIDTH 13.4 % (11.6-17.2); WHITE BLOOD COUNT 7.4 TH/MM3 (4.0-11.0)
[2017-03-10 13:08] LABS: BLOOD, URINE NEG (NEG); GLUCOSE,URINE NEG (NEG); KETONE, URINE NEG (NEG); NITRITE,URINE NEG (NEG)
[2017-03-10 13:12] LABS: METHOD OF COLLECTION CLEAN CATCH; URINE COLOR YELLOW (YELLW/STRAW)
[2017-03-10 13:13] VITALS: BP 164/99; PULSE 84; RESP 16; O2SAT 98
[2017-03-10 13:14] LABS: COMMENT (UR) CULT NOT INDICATED; CULTURE IF INDICATED CULT NOT INDICATED
[2017-03-10 13:15] LABS: CHLORIDE 102 MEQ/L (98-107); SODIUM (NA) 137 MEQ/L (136-145)
[2017-03-10 13:18] VITALS: RESP 16; O2SAT 98
[2017-03-10 13:19] LABS: ANION GAP 8 MEQ/L (5-15); BLOOD UREA NITROGEN 8 MG/DL (7-18)
[2017-03-10 13:20] LABS: APTT (PATIENT) 26.8 SEC (24.3-30.1)
[2017-03-10 13:22] LABS: ALT (GPT) 28 U/L (10-53); AST (GOT) 26 U/L (15-37); GLOMERULAR FILTRATION RATE 95 ML/MIN (>89)
[2017-03-10 13:23] LABS: TOTAL BILIRUBIN ADULT 0.6 MG/DL (0.2-1.0)
[2017-03-10 13:25] LABS: ALKALINE PHOSPHATASE 79 U/L (45-117)
[2017-03-10 13:38] LABS: INDIRECT BILIRUBIN 0.5 MG/DL (0.0-0.8)
[2017-03-10 14:14] VITALS: BP 161/97; PULSE 88; RESP 16; O2SAT 100
--- NOTE | 2017-03-10 14:16 | RADRPT ---
EXAM DATE/TIME: 03/10/2017 13:41 [facility] COMPARISON: CT ABDOMEN & PELVIS W/O CONTRAST, October 26, 2016, 19:16. INDICATIONS : Abdominal pain. ORAL CONTRAST: No oral contrast ingested. RADIATION DOSE: 22.74 CTDIvol (mGy) MEDICAL HISTORY : Renal calculi. Pancreatitis. SURGICAL HISTORY : Cholecystectomy. Hysterectomy. ENCOUNTER: Initial ACUITY: 1 day PAIN SCALE: 8/10 LOCATION: Bilateral middle abdominal pain. TECHNIQUE: Volumetric scanning of the abdomen and pelvis was performed. Using automated exposure control and ad justment of the mA and/or kV according to patient size, radiation dose was kept as low as reasonably achievable to obtain optimal diagnostic quality images. DICOM format image data is available electro nically for review and comparison. FINDINGS: The limited portion of the lung base visualized is clear. The appearance of the liver, spleen, pancreas and adrenal glands is within normal limits. The patient is post cholecystectomy. There is subtle calcification of the medullary pyramids within the renal cortex suggesting mild medul jonel nephrocalcinosis. There are 2 punctate nonobstructing stones seen in the lower pole collecting s ystem measuring approximately 1 mm. The ureters are followed throughout their course. No definite sto ne is seen within either ureter. The visualized loops of small and large bowel are unremarkable. No free air or free fluid is seen. The abdominal aorta is normal in caliber. There is no retroperitoneal lymphadenopathy. There is no free fluid within the pelvis. No iliac or inguinal adenopathy is present. The visualized bony structures are grossly intact. CONCLUSION: 1. Calcification of the medullary pyramids suggesting medullary nephrocalcinosis. No discrete renal s tones are evident. There is no hydronephrosis. No definite abnormality to explain the patient's abdom inal pain identified. Jay Jay Cortez MD on March 10, 2017 at 14:11 Board Certified Radiologist. This report was verified electronically.
[2017-03-10] MEDS ORDERED: FAMOTIDINE 20 MG/2 ML VIAL IV PUSH ONE (14:30)
[2017-03-10] MEDS ORDERED: LIDOCAINE VISCOUS 2% SOLN 15 ML UDC PO ONE (14:30)
[2017-03-10] MEDS ORDERED: ALUMINUM/MAGNESIUM/SIMETH 30 ML CUP PO ONE (14:30)
[2017-03-10] MEDS ORDERED: METOCLOPRAMIDE INJ 10 MG in SODIUM CHLORIDE 0.9% INJ 50 ML IV ONE (14:30)
--- NOTE | 2017-03-10 14:52 | PD ---
HPI Chief Complaint: Abdominal Pain Time Seen by Provider: 12:38 Travel History International Travel<30 days: No Contact w/Intl Traveler<30days: No Traveled to known affect area: No History of Present Illness HPI Patient is a 36 year old female who comes in complaining of abdominal pain. She says she has had the pain for the past 3 days along with nausea, vomiting, and diarrhea. She says it feels like pain she had when she had gallstone pancreatitis. She says the pain wraps around to her back. She has had her gallbladder removed. She denies fever or chills. She denies any dysuria. PFSH Past Medical History Asthma: Yes Autoimmune Disease: No Blood Disorders: No Anxiety: Yes Depression: Yes Heart Rhythm Problems: No Cancer: No Cardiac Catheterization: No Cardiovascular Problems: Yes High Cholesterol: Yes Chemotherapy: No Chest Pain: No Congestive Heart Failure: No COPD: No Cerebrovascular Accident: No Diabetes: No Diminished Hearing: No Endocrine: No Gastrointestinal Disorders: Yes (HX PANCREATITS) GERD: Yes Genitourinary: No Hepatitis: No Hiatal Hernia: No Hypertension: Yes Immune Disorder: No Implanted Vascular Access Dvce: No Kidney Stones: Yes Medical other: Yes (ELEVATED CHOLESTEROL) Musculoskeletal: No Neurologic: No Psychiatric: No Reproductive: No Respiratory: Yes (ASTHMA) Immunizations Current: Yes Migraines: Yes Pancreatitis: Yes (HX) Pneumonia: Yes Radiation Therapy: No Renal Failure: No Seizures: No Sleep Apnea: No Thyroid Disease: No Ulcer: No Influenza Vaccination: No ?: Not Menopausal: Yes : 3 Para: 2 : 1 Tubal Ligation: Yes Past Surgical History Abdominal Surgery: Yes (CHOLECYSTECTOMY) AICD: No Arteriovenous Shunt: No Body Medical Devices: NONE Cardiac Surgery: No Section: Yes (X1) Coronary Artery Bypass Graft: No Ear Surgery: No Endocrine Surgery: No Eye Surgery: No Genitourinary Surgery: Yes (LITHOTRIPSY) Gynecologic Surgery: Yes (, TUBAL LIGATION, HYSTERECTOMY) Hysterectomy: Yes Insulin Pump: No Joint Replacement: No Oral Surgery: Yes (TONSILECTOMY) Pacemaker: No Thoracic Surgery: No Tonsillectomy: Yes Other Surgery: Yes Social History Alcohol Use: Yes (OCCASIONAL) Tobacco Use: No (QUIT EARLY 20'S) Substance Use: No Allergies-Medications (Allergen,Severity, Reaction): Coded Allergies: Fish Containing Products (Unverified Allergy, Severe, SOB/EDEMA, 01/16/17) Influenza Virus Vaccines (Unverified Allergy, Severe, ANAPHYLACTIC, ) bupropion (Unverified Allergy, Severe, SOB/EDEMA, 01/16/17) ceftriaxone (Unverified Allergy, Severe, SOB/EDEMA, 01/16/17) celecoxib (Unverified Allergy, Severe, SOB/EDEMA, 01/16/17) iodine (Unverified Allergy, Severe, SOB/EDEMA, 01/16/17) morphine (Unverified Allergy, Severe, itching and hives, 01/16/17) new onset for pt. received Morphine earlier without incident potassium iodide (Unverified Allergy, Severe, SOB/EDEMA, 01/16/17) povidone-iodine (Unverified Allergy, Severe, SOB/EDEMA, 01/16/17) sodium iodide (Unverified Allergy, Severe, SOB/EDEMA, 01/16/17) sodium iodide (Unverified Allergy, Severe, SOB/EDEMA, 01/16/17) levofloxacin (Unverified Allergy, Intermediate, Rash, 01/16/17) itching diatrizoate meglumine (Unverified Allergy, Unknown, 01/16/17) pt allergic to iodine gadobenic acid (Unverified Allergy, Unknown, 01/16/17) pt allergic to iodine gadodiamide (Unverified Allergy, Unknown, 01/16/17) pt allergic to iodine gadoteridol (Unverified Allergy, Unknown, 01/16/17) pt allergic to iodine iodixanol (Unverified Allergy, Unknown, 01/16/17) pt allergic to iodine iohexol (Unverified Allergy, Unknown, 01/16/17) pt allergic to iodine Uncoded Allergies: FLU SHOT (Allergy, Mild, Anaphylaxis, 03/26/15) Reported Meds & Prescriptions Reported Meds & Active Scripts Active Reported Ventolin Hfa 18 GM Inh (Albuterol Sulfate) 90 Mcg/Act Aer 2 Puff INH Q4H PRN Norvasc (Amlodipine Besylate) 10 Mg Tab 10 Mg PO DAILY Review of Systems Except as stated in HPI: all other systems reviewed are Neg General / Constitutional: No: Fever, Chills HENT: No: Headaches, Lightheadedness Cardiovascular: No: Chest Pain or Discomfort Respiratory: No: Shortness of Breath Gastrointestinal: Positive: Nausea, Vomiting, Diarrhea, Abdominal Pain Genitourinary: No: Dysuria Musculoskeletal: No: Myalgias, Edema Skin: No Rash, No Change in Pigmentation Neurologic: No: Weakness, Dizziness Physical Exam Narrative GENERAL: Awake and alert, in no acute distress. SKIN: Focused skin assessment warm/dry. HEAD: Atraumatic. Normocephalic. EYES: Pupils equal and round. No scleral icterus. ENT: Mucous membranes pink and moist. NECK: Trachea midline. No JVD. CARDIOVASCULAR: Regular rate and rhythm. No murmur appreciated. RESPIRATORY: No accessory muscle use. Clear to auscultation. Breath sounds equal bilaterally. GASTROINTESTINAL: Abdomen soft, nondistended. Diffusely tender to palpation. Worse tenderness in the upper portions of the abdomen. No rebound or guarding. MUSCULOSKELETAL: No obvious deformities. No clubbing. No cyanosis. No edema. NEUROLOGICAL: Awake and alert. No obvious cranial nerve deficits. Motor grossly within normal limits. Normal speech. PSYCHIATRIC: Appropriate mood and affect; insight and judgment normal. Data Data Last Documented VS Vital Signs Date Time Temp Pulse Resp B/P (MAP) Pulse Ox O2 Delivery O2 Flow Rate FiO2 03/10/17 15:18 80 16 153/77 (102) 97 Room Air 03/10/17 12:30 98.8 Orders Orders Basic Metabolic Panel (Bmp) (03/10/17 12:43) Complete Blood Count With Diff (03/10/17 12:43) Lipase (03/10/17 12:43) Lactic Acid (03/10/17 12:43) Prothrombin Time / Inr (Pt) (03/10/17 12:43) Act Partial Throm Time (Ptt) (03/10/17 12:43) Urinalysis - C+S If Indicated (03/10/17 12:43) Iv Access Insert/Monitor (03/10/17 12:43) Ecg Monitoring (03/10/17 12:43) Oximetry (03/10/17 12:43) Ondansetron Inj (Zofran Inj) (03/10/17 12:45) Sodium Chlor 0.9% 1000 Ml Inj (Ns 1000 M (03/10/17 12:43) Sodium Chloride 0.9% Flush (Ns Flush) (03/10/17 12:45) Hepatic Functional Panel (03/10/17 12:43) Ct Abd/Pel W/O Iv Contrast (03/10/17 ) Hydromorphone Pf Inj (Dilaudid Pf Inj) (03/10/17 12:45) Famotidine Inj (Pepcid Inj) (03/10/17 14:30) Al-Mag Hy-Si 40-40-4 Mg/Ml Liq (Mag-Al P (03/10/17 14:30) Lidocaine 2% Viscous (Xylocaine 2% Visco (03/10/17 14:30) Metoclopramide Inj (Reglan Inj) (03/10/17 14:30) Dicyclomine (Bentyl) (03/10/17 15:45) Labs Laboratory Tests Test 03/10/17 13:00 White Blood Count 7.4 TH/MM3 Red Blood Count 4.91 MIL/MM3 Hemoglobin 13.0 GM/DL Hematocrit 39.6 % Mean Corpuscular Volume 80.7 FL Mean Corpuscular Hemoglobin 26.5 PG Mean Corpuscular Hemoglobin Concent 32.9 % Red Cell Distribution Width 13.4 % Platelet Count 413 TH/MM3 Mean Platelet Volume 8.0 FL Neutrophils (%) (Auto) 55.0 % Lymphocytes (%) (Auto) 36.4 % Monocytes (%) (Auto) 6.0 % Eosinophils (%) (Auto) 1.9 % Basophils (%) (Auto) 0.7 % Neutrophils # (Auto) 4.1 TH/MM3 Lymphocytes # (Auto) 2.7 TH/MM3 Monocytes # (Auto) 0.4 TH/MM3 Eosinophils # (Auto) 0.1 TH/MM3 Basophils # (Auto) 0.1 TH/MM3 CBC Comment DIFF FINAL Differential Comment Prothrombin Time 11.0 SEC Prothromb Time International Ratio 1.0 RATIO Activated Partial Thromboplast Time 26.8 SEC Urine Collection Type CLEAN CATCH Urine Color YELLOW Urine Turbidity CLOUDY Urine pH 7.0 Urine Specific [place] 1.015 Urine Protein NEG mg/dL Urine Glucose (UA) NEG mg/dL Urine Ketones NEG mg/dL Urine Occult Blood NEG Urine Nitrite NEG Urine Bilirubin NEG Urine Leukocyte Esterase NEG Urine Amorphous Sediment LARGE Microscopic Urinalysis Comment CULT NOT INDICATED Blood Urea Nitrogen 8 MG/DL Creatinine 0.82 MG/DL Random Glucose 88 MG/DL Total Protein 8.0 GM/DL Albumin 3.5 GM/DL Calcium Level 9.1 MG/DL Alkaline Phosphatase 79 U/L Aspartate Amino Transf (AST/SGOT) 26 U/L Alanine Aminotransferase (ALT/SGPT) 28 U/L Total Bilirubin 0.6 MG/DL Direct Bilirubin LESS THAN 0.1 MG/DL Sodium Level 137 MEQ/L Potassium Level 4.0 MEQ/L Chloride Level 102 MEQ/L Carbon Dioxide Level 27.0 MEQ/L Anion Gap 8 MEQ/L Estimat Glomerular Filtration Rate 95 ML/MIN Lactic Acid Level 1.2 mmol/L Indirect Bilirubin 0.5 MG/DL Lipase 122 U/L MDM Medical Decision Making Medical Screen Exam Complete: Yes Emergency Medical Condition: Yes Medical Record Reviewed: Yes Differential Diagnosis Pancreatitis versus gastritis versus retained gallstone Narrative Course Patient is a 36-year-old female who comes in complaining of abdominal pain with nausea, vomiting, diarrhea. Exam shows diffuse tenderness, worse in the upper abdomen. IV established, labs sent. Lipase is within normal limits. AST and ALTs are within normal limits. There are no acute abnormalities seen on labs. CT abdomen and pelvis shows no acute abnormalities. Patient was given IV fluids , Zofran, morphine. She reports some improvement of her pain, but is still nauseous. She is given a GI cocktail and a dose of Reglan and Bentyl. She is able to drink water without vomiting. She is advised follow-up with gastroenterology. Advised to eat a bland diet and drink plenty of fluids. Given prescriptions for Zantac, Bentyl, Zofran. Advised to return as needed for any worsening symptoms. Diagnosis Primary Impression: Gastritis Qualified Codes: K29.00 - Acute gastritis without bleeding Referrals: Yareli Akers MD call for appointment Patient Instructions: Gastritis (ED), General Instructions Additional Instructions: Drink plenty of fluids. Eat a bland diet. Take the Zantac as prescribed. You can take Zofran as needed for nausea and Bentyl for spasms. Follow-up with gastroenterology. Return to the ED as needed for any worsening symptoms. Scripts Dicyclomine (Bentyl) 10 Mg Cap 10 MG PO TID Y for Bowel Management, #15 CAP 0 Refills Prov: Arminda Moya MD 03/10/17 Ranitidine (Zantac) 150 Mg Tab 150 MG PO BID for Reduce Stomach Acid, #60 TAB 0 Refills Prov: Arminda Moya MD 03/10/17 Ondansetron Odt (Zofran Odt) 4 Mg Tab 4 MG SL Q6HR Y for Nausea/Vomiting, #12 TAB 0 Refills Prov: Arminda Moya MD 03/10/17 Disposition: 01 DISCHARGE HOME Condition: Stable Arminda Moya MD Mar 10, 2017 14:52
[2017-03-10 15:18] VITALS: BP 153/77; PULSE 80; RESP 16; O2SAT 97
[2017-03-10] MEDS ORDERED: DICYCLOMINE HCL 10 MG CAP PO ONE (15:45)
[2017-03-10] MEDS ORDERED: ZANT150T2 PO (16:09)
[2017-03-10] MEDS ORDERED: DICY10 PO (16:09)
[2017-03-10] MEDS ORDERED: ZOFR4TAB3 SL (16:09)
[2017-03-10 16:21] VITALS: BP 150/88; PULSE 86; RESP 18; O2SAT 100
== END 2017-03-10 16:22 | disposition home or self-care (01) ==
LOC: PHED 12:17
DX: K29.00 Acute gastritis without bleeding (principal)
CPT/HCPCS: 74176; 80048; 80076; 81001; 83605; 83690; 85025; 85610; 85730; 96361; 96365; 96375; 99285; J1170; J2405; J2765; J7030

== ENCOUNTER 2017-03-22 22:16 | Emergency (ER) | payer OTHER ==
[~2017-03-22] VITALS: Ht 157.5 cm; Wt 79.1 kg
[~2017-03-22 22:16] MED LIST changes: +DICY10 PO; +ZANT150T2 PO; +ZOFR4TAB3 SL
[2017-03-22 22:30] VITALS: BP 154/91; PULSE 73; RESP 16; TEMP 98.6; O2SAT 97
[2017-03-22 23:30] VITALS: BP 149/79; PULSE 80; RESP 18; O2SAT 99
[2017-03-22] MEDS ORDERED: KETOROLAC TROMETHAMINE 30 MG/ML (IVP) VIAL IVP ONE (23:30)
[2017-03-22] MEDS ORDERED: MORPHINE SULFATE 8 MG/ML INJ IV PUSH ONE (23:30)
[2017-03-22] MEDS ORDERED: SODIUM CHLORIDE 0.9% FLUSH 10 ML FLUSH IVF PRN (23:30)
[2017-03-22] MEDS ORDERED: diphenhydrAMINE HCL 50 MG/ML VIAL IVP ONE (23:30)
[2017-03-22] MEDS ORDERED: PROCHLORPERAZINE INJ 10 MG/2 ML VIAL IVP ONE (23:30)
--- NOTE | 2017-03-22 23:38 | PD ---
HPI Chief Complaint: Headache Time Seen by Provider: 23:23 Travel History International Travel<30 days: No Contact w/Intl Traveler<30days: No Traveled to known affect area: No History of Present Illness HPI The patient is a 36-year-old female that has a history of migraine headaches that complains of a primarily left-sided headache beginning at 5 PM yesterday. She has tingling on the left and the right side of the face since noon today. She denies any focal neurologic change, any focal weakness or sensory loss. She does have photophobia but denies nausea or vomiting. She denies any fever. The headache is of gradual onset and not a "thunderclap" headache. PFSH Past Medical History Asthma: Yes Autoimmune Disease: No Blood Disorders: No Anxiety: Yes Depression: Yes Heart Rhythm Problems: No Cancer: No Cardiac Catheterization: No Cardiovascular Problems: Yes High Cholesterol: Yes Chemotherapy: No Chest Pain: No Congestive Heart Failure: No COPD: No Cerebrovascular Accident: No Diabetes: No Diminished Hearing: No Endocrine: No Gastrointestinal Disorders: Yes (HX PANCREATITS) GERD: Yes Genitourinary: No Hepatitis: No Hiatal Hernia: No Hypertension: Yes Immune Disorder: No Implanted Vascular Access Dvce: No Kidney Stones: Yes Musculoskeletal: No Neurologic: No Psychiatric: No Reproductive: No Respiratory: Yes (ASTHMA) Immunizations Current: Yes Migraines: Yes Pancreatitis: Yes (HX) Pneumonia: Yes Radiation Therapy: No Renal Failure: No Seizures: No Sleep Apnea: No Thyroid Disease: No Ulcer: No Tetanus Vaccination: < 5 Years Influenza Vaccination: No ?: Unknown Menopausal: Yes : 3 Para: 2 : 1 Tubal Ligation: Yes Past Surgical History Abdominal Surgery: Yes (CHOLECYSTECTOMY) AICD: No Arteriovenous Shunt: No Body Medical Devices: NONE Cardiac Surgery: No Section: Yes (X1) Coronary Artery Bypass Graft: No Ear Surgery: No Endocrine Surgery: No Eye Surgery: No Genitourinary Surgery: Yes (LITHOTRIPSY) Gynecologic Surgery: Yes (, TUBAL LIGATION, HYSTERECTOMY) Hysterectomy: Yes Insulin Pump: No Joint Replacement: No Oral Surgery: Yes (TONSILECTOMY) Pacemaker: No Thoracic Surgery: No Tonsillectomy: Yes Other Surgery: Yes Social History Alcohol Use: Yes (OCCASIONAL) Tobacco Use: No (QUIT EARLY 'S) Substance Use: No Allergies-Medications (Allergen,Severity, Reaction): Coded Allergies: Fish Containing Products (Unverified Allergy, Severe, SOB/EDEMA, 03/22/17) Influenza Virus Vaccines (Unverified Allergy, Severe, ANAPHYLACTIC, ) bupropion (Unverified Allergy, Severe, SOB/EDEMA, 03/22/17) ceftriaxone (Unverified Allergy, Severe, SOB/EDEMA, 03/22/17) celecoxib (Unverified Allergy, Severe, SOB/EDEMA, 03/22/17) iodine (Unverified Allergy, Severe, SOB/EDEMA, 03/22/17) morphine (Unverified Allergy, Severe, itching and hives, 03/22/17) new onset for pt. received Morphine earlier without incident potassium iodide (Unverified Allergy, Severe, SOB/EDEMA, 03/22/17) povidone-iodine (Unverified Allergy, Severe, SOB/EDEMA, 03/22/17) sodium iodide (Unverified Allergy, Severe, SOB/EDEMA, 03/22/17) sodium iodide (Unverified Allergy, Severe, SOB/EDEMA, 03/22/17) levofloxacin (Unverified Allergy, Intermediate, Rash, 03/22/17) itching diatrizoate meglumine (Unverified Allergy, Unknown, 03/22/17) pt allergic to iodine gadobenic acid (Unverified Allergy, Unknown, 03/22/17) pt allergic to iodine gadodiamide (Unverified Allergy, Unknown, 03/22/17) pt allergic to iodine gadoteridol (Unverified Allergy, Unknown, 03/22/17) pt allergic to iodine iodixanol (Unverified Allergy, Unknown, 03/22/17) pt allergic to iodine iohexol (Unverified Allergy, Unknown, 03/22/17) pt allergic to iodine Uncoded Allergies: FLU SHOT (Allergy, Mild, Anaphylaxis, 03/26/15) Reported Meds & Prescriptions Reported Meds & Active Scripts Active Lortab (Hydrocodone-Acetaminophen) 5-325 Mg Tab 1 Tab PO Q6H PRN Reported Ventolin Hfa 18 GM Inh (Albuterol Sulfate) 90 Mcg/Act Aer 2 Puff INH Q4H PRN Norvasc (Amlodipine Besylate) 10 Mg Tab 10 Mg PO DAILY Review of Systems Except as stated in HPI: all other systems reviewed are Neg Physical Exam Narrative GENERAL: Well-nourished, well-developed patient who was covering her eyes because of photophobia in moderate apparent distress with her headache. Her vital signs show blood pressure 154/91 but otherwise normal. SKIN: Focused skin assessment warm/dry. HEAD: Normocephalic. EYES: No scleral icterus. No injection or drainage. Fundi appear sharp and venous pulsations seen in the upright position. NECK: Supple, trachea midline. No JVD or lymphadenopathy. CARDIOVASCULAR: Regular rate and rhythm without murmurs, gallops, or rubs. RESPIRATORY: Breath sounds equal bilaterally. No accessory muscle use. GASTROINTESTINAL: Abdomen soft, non-tender, nondistended. MUSCULOSKELETAL: No cyanosis, or edema. BACK: Nontender without obvious deformity. No CVA tenderness. NEUROLOGICAL: Awake and alert. Cranial nerves II through XII intact. Motor and sensory grossly within normal limits. Five out of 5 muscle strength in all muscle groups. Normal speech and gait. Data Data Last Documented VS Vital Signs Date Time Temp Pulse Resp B/P (MAP) Pulse Ox O2 Delivery O2 Flow Rate FiO2 03/23/17 00:31 18 03/23/17 00:30 76 154/94 (114) 97 Room Air 03/22/17 22:30 98.6 Orders Orders Complete Blood Count With Diff (03/22/17 23:30) Basic Metabolic Panel (Bmp) (03/22/17 23:30) Ct Brain W/O Iv Contrast(Rout) (03/22/17 23:30) Ecg Monitoring (03/22/17 23:30) Iv Access Insert/Monitor (03/22/17 23:30) Oximetry (03/22/17 23:30) Sodium Chloride 0.9% Flush (Ns Flush) (03/22/17 23:30) Ketorolac Inj (Toradol Inj) (03/22/17 23:30) Prochlorperazine Inj (Compazine Inj) (03/22/17 23:30) Diphenhydramine Inj (Benadryl Inj) (03/22/17 23:30) Morphine Inj (Morphine Inj) (03/22/17 23:30) Sodium Chlor 0.9% 1000 Ml Inj (Ns 1000 M (03/22/17 23:45) Ondansetron Inj (Zofran Inj) (03/23/17 00:30) Labs Laboratory Tests Test 03/22/17 23:40 White Blood Count 7.3 TH/MM3 Red Blood Count 4.61 MIL/MM3 Hemoglobin 12.4 GM/DL Hematocrit 37.4 % Mean Corpuscular Volume 81.0 FL Mean Corpuscular Hemoglobin 26.9 PG Mean Corpuscular Hemoglobin Concent 33.2 % Red Cell Distribution Width 13.4 % Platelet Count 367 TH/MM3 Mean Platelet Volume 8.1 FL Neutrophils (%) (Auto) 40.1 % Lymphocytes (%) (Auto) 48.3 % Monocytes (%) (Auto) 6.1 % Eosinophils (%) (Auto) 4.4 % Basophils (%) (Auto) 1.1 % Neutrophils # (Auto) 2.9 TH/MM3 Lymphocytes # (Auto) 3.6 TH/MM3 Monocytes # (Auto) 0.4 TH/MM3 Eosinophils # (Auto) 0.3 TH/MM3 Basophils # (Auto) 0.1 TH/MM3 CBC Comment DIFF FINAL Differential Comment Blood Urea Nitrogen 16 MG/DL Creatinine 0.78 MG/DL Random Glucose 86 MG/DL Calcium Level 8.4 MG/DL Sodium Level 139 MEQ/L Potassium Level 3.7 MEQ/L Chloride Level 106 MEQ/L Carbon Dioxide Level 25.5 MEQ/L Anion Gap 8 MEQ/L Estimat Glomerular Filtration Rate 101 ML/MIN MDM Medical Decision Making Medical Screen Exam Complete: Yes Emergency Medical Condition: Yes Medical Record Reviewed: Yes Interpretation(s) The basic metabolic profile is normal except for calcium of 8.4. The CBC is normal. The CT brain is normal. Differential Diagnosis Migraine headache, tension headache, tension/migraine combination headache, cluster headache, intracranial bleed-highly unlikely, normal pressure hydrocephalus-highly unlikely Narrative Course The patient appears to have had a migraine headache. Her pain is less than 4/ 10 now and she wants to go home. She will be given Fioricet as well as Compazine. She is to follow-up with her primary care physician. Diagnosis Primary Impression: Migraine headache Additional Instructions: Be careful about driving on the Compazine and do not drink alcohol with the Compazine or the Fioricet. Both can make you sleepy. Follow-up with her primary care physician this week or next week. Med/Other Pt SpecificInfo: Prescription(s) given Scripts Prochlorperazine Maleate (Prochlorperazine Maleate) 10 Mg Tab 10 MG PO Q6H Y for NAUSEA OR VOMITING, #30 TAB 0 Refills Prov: Matteo Fields MD 03/23/17 Nryqyedkqp-Dkfkihjbglsgq-Afpzuikr (Fioricet) 50-300-40 Mg Cap 1-2 CAP PO Q6H Y for HEADACHE, #30 CAP 0 Refills Prov: Matteo Fields MD 03/23/17 Hydrocodone-Acetaminophen (Lortab) 5-325 Mg Tab 1 TAB PO Q6H Y for PAIN, #15 TAB 0 Refills Prov: Matteo Fields MD 03/22/17 Disposition: 01 DISCHARGE HOME Condition: Stable Matteo Fields MD Mar 22, 2017 23:38
[2017-03-22] MEDS ORDERED: HYDR-3533 PO (23:39)
[2017-03-22] MEDS ORDERED: SODIUM CHLOR 0.9% 1000 ML INJ 1,000 ML IV SCH (23:45)
[2017-03-23] VITALS: O2SAT 98
[2017-03-23 00:10] LABS: AUTOMATED NEUTROPHIL # 2.9 TH/MM3 (1.8-7.7); BASOPHIL # 0.1 TH/MM3 (0-0.2); BASOPHIL % 1.1 % (0.0-2.0); EOSINOPHIL # 0.3 TH/MM3 (0-0.4); EOSINOPHIL % 4.4 % (0.0-4.0); HEMATOCRIT 37.4 % (35.0-46.0); HEMO FLAGS DIFF FINAL; LYMPH % 48.3 % (9.0-44.0); LYMPHOCYTE # 3.6 TH/MM3 (1.0-4.8); MEAN CORPUSCULAR HEMOGLOBIN 26.9 PG (27.0-34.0); MEAN CORPUSCULAR HGB CONC 33.2 % (32.0-36.0); MONO % 6.1 % (0.0-8.0); NEUT % 40.1 % (16.0-70.0); PLATELET COUNT 367 TH/MM3 (150-450); RED BLOOD COUNT 4.61 MIL/MM3 (4.00-5.30); RED CELL DISTRIBUTION WIDTH 13.4 % (11.6-17.2); WHITE BLOOD COUNT 7.3 TH/MM3 (4.0-11.0)
[2017-03-23 00:21] LABS: POTASSIUM 3.7 MEQ/L (3.5-5.1)
[2017-03-23 00:24] LABS: BICARBONATE 25.5 MEQ/L (21.0-32.0)
--- NOTE | 2017-03-23 00:29 | RADRPT ---
EXAM DATE/TIME: 03/23/2017 00:04 [facility] COMPARISON: CT BRAIN W/O CONTRAST, December 09, 2015, 21:22. INDICATIONS : Headache with numbness to left side of face. RADIATION DOSE: 60.73 CTDIvol (mGy) MEDICAL HISTORY : Hypertension. Migraine SURGICAL HISTORY : None. ENCOUNTER: Initial ACUITY: 2 days PAIN SCALE: 10/10 LOCATION: Left temporal TECHNIQUE: Multiple contiguous axial images were obtained of the head. Using automated exposure control and adj ustment of the mA and/or kV according to patient size, radiation dose was kept as low as reasonably a chievable to obtain optimal diagnostic quality images. DICOM format image data is available electro nically for review and comparison. FINDINGS: CEREBRUM: The ventricles are normal for age. No evidence of midline shift, mass lesion, hemorrhage or acute in farction. No extra-axial fluid collections are seen. POSTERIOR FOSSA: The cerebellum and brainstem are intact. The 4th ventricle is midline. The cerebellopontine angle i s unremarkable. EXTRACRANIAL: The visualized portion of the orbits is intact. SKULL: The calvaria is intact. No evidence of skull fracture. CONCLUSION: No acute intracranial disease. Dharmesh Brian MD on March 23, 2017 at 0:27 Board Certified Radiologist. This report was verified electronically.
[2017-03-23 00:30] VITALS: BP 154/94; PULSE 76; RESP 18; O2SAT 97
[2017-03-23] MEDS ORDERED: ONDANSETRON HCL 4 MG/2 ML VIAL IV ONE (00:30)
[2017-03-23 00:31] VITALS: RESP 18
[2017-03-23] MEDS ORDERED: PROC10TA PO (00:59)
[2017-03-23] MEDS ORDERED: BUTA1CAP PO (00:59)
[2017-03-23 01:26] VITALS: BP 151/84
== END 2017-03-23 01:28 | disposition home or self-care (01) ==
LOC: PHED 22:16
DX: G43.909 Migraine, unspecified, not intractable, without status migrainosus (principal)
CPT/HCPCS: 70450; 80048; 85025; 96361; 96374; 96375; 99285; J0780; J1200; J1885; J2270; J2405; J7030